=== PATIENT | female | born 1940 | race Caucasian/White ===

== ENCOUNTER → 2017-05-17 08:35 | Outpatient (CLI) | payer OTHER, SELFPAY ==
[2017-05-17 09:44] LABS: AST(SGOT) 23 U/L (15-37); Alanine Aminotransfer ALT/SGPT 24 U/L (13-56); Albumin, Serum 3.7 g/dL (3.2-5.0); Alkaline Phosphatase 78 U/L (45-117); Bilirubin, Direct 0.13 mg/dL (0.00-0.30); Cholesterol 146 mg/dL (200); Globulin 3.8 g/dL (2.2-4.2); High Density Lipoprotein 59 mg/dL; Protein, Total 7.5 g/dL (6.4-8.2); Triglycerides 121 mg/dL; Very Low Density Lipoprotein 24 mg/dL (5-40)
== END ==
PROVIDERS: Nurse Practitioner Family; Visit Provider Internal Medicine Cardiovascular Disease
DX: E78.5 Hyperlipidemia, unspecified (principal)
CPT/HCPCS: 36415; 80061; 80076

== ENCOUNTER → 2017-11-16 08:51 | Outpatient (CLI) | payer OTHER, SELFPAY ==
[2017-11-16 10:14] LABS: AST(SGOT) 26 U/L (15-37); Alanine Aminotransfer ALT/SGPT 27 U/L (13-56); Albumin, Serum 3.7 g/dL (3.2-5.0); Alkaline Phosphatase 78 U/L (45-117); Bilirubin, Direct 0.18 mg/dL (0.00-0.30); Cholesterol 140 mg/dL (200); Globulin 3.6 g/dL (2.2-4.2); High Density Lipoprotein 57 mg/dL; Protein, Total 7.3 g/dL (6.4-8.2); Triglycerides 101 mg/dL; Very Low Density Lipoprotein 20 mg/dL (5-40)
== END ==
PROVIDERS: Referring Provider Internal Medicine Cardiovascular Disease; Visit Provider Internal Medicine Cardiovascular Disease
DX: E78.5 Hyperlipidemia, unspecified (principal)
CPT/HCPCS: 36415; 80061; 80076

== ENCOUNTER → 2018-12-18 08:39 | Outpatient (CLI) | payer OTHER, SELFPAY ==
[2018-12-18 10:03] LABS: AST(SGOT) 27 U/L (15-37); Alanine Aminotransfer ALT/SGPT 28 U/L (13-56); Albumin, Serum 3.8 g/dL (3.2-5.0); Alkaline Phosphatase 74 U/L (45-117); Bilirubin, Direct 0.11 mg/dL (0.00-0.30); Cholesterol 149 mg/dL (200); Globulin 3.7 g/dL (2.2-4.2); High Density Lipoprotein 62 mg/dL; Protein, Total 7.5 g/dL (6.4-8.2); Triglycerides 101 mg/dL; Very Low Density Lipoprotein 20 mg/dL (5-40)
== END ==
PROVIDERS: Referring Provider Internal Medicine Cardiovascular Disease; Visit Provider Internal Medicine Cardiovascular Disease
DX: E78.00 Pure hypercholesterolemia, unspecified (principal)
CPT/HCPCS: 36415; 80061; 80076

== ENCOUNTER → 2019-11-05 08:38 | Outpatient (CLI) | payer OTHER, SELFPAY ==
[2018-12-28 09:21] VITALS: BMI 21.6
[2019-11-05 10:14] LABS: AST(SGOT) 28 U/L (15-37); Alanine Aminotransfer ALT/SGPT 30 U/L (13-56); Albumin, Serum 3.6 g/dL (3.2-5.0); Alkaline Phosphatase 77 U/L (45-117); Bilirubin, Direct 0.17 mg/dL (0.00-0.30); Cholesterol 137 mg/dL (200); Globulin 3.7 g/dL (2.2-4.2); High Density Lipoprotein 58 mg/dL; Protein, Total 7.3 g/dL (6.4-8.2); Triglycerides 77 mg/dL; Very Low Density Lipoprotein 15 mg/dL (5-40)
== END ==
PROVIDERS: Referring Provider Internal Medicine Cardiovascular Disease; Visit Provider Internal Medicine Cardiovascular Disease
DX: E78.00 Pure hypercholesterolemia, unspecified (principal); E78.5 Hyperlipidemia, unspecified
CPT/HCPCS: 36415; 80061; 80076

== ENCOUNTER → 2020-06-15 07:58 | Outpatient (CLI) | payer OTHER, SELFPAY ==
[2019-11-15 10:16] VITALS: BMI 21.6
[2020-06-15 09:39] LABS: AST(SGOT) 24 U/L (15-37); Alanine Aminotransfer ALT/SGPT 29 U/L (13-56); Albumin, Serum 3.9 g/dL (3.2-5.0); Alkaline Phosphatase 80 U/L (45-117); Bilirubin, Direct 0.14 mg/dL (0.00-0.30); Cholesterol 138 mg/dL (200); Globulin 3.6 g/dL (2.2-4.2); High Density Lipoprotein 65 mg/dL; Protein, Total 7.5 g/dL (6.4-8.2); Triglycerides 85 mg/dL; Very Low Density Lipoprotein 17 mg/dL (5-40)
== END ==
PROVIDERS: Referring Provider Nurse Practitioner Family; Visit Provider Nurse Practitioner Family
DX: E78.00 Pure hypercholesterolemia, unspecified (principal)
CPT/HCPCS: 36415; 80061; 80076

== ENCOUNTER 2020-11-27 08:22 | Emergency (ER) | payer OTHER, SELFPAY ==
[2020-11-27 08:23] VITALS: BP 177/70; PULSE 75; RESP 16; TEMP 36.4; O2SAT 97; BMI 21.4
--- NOTE | 2020-11-27 08:39 | EDS_ITS ---
HPI History of Present Illness Chief Complaint: Upper Extremity Injury Informant: patient Occured/Mechanism Mechanism/Context: Yes fall Comment: tripped while walking on sidewalk Onset/Context/Timing Onset: Yesterday Context: Sudden Onset Timing: Continuous Quality of Pain: Aching Location: left wrist Current Severity: Moderate Maximum Severity: Severe Worsened by: moving Relieved by: remaining still Associated Symptoms Associated Symptoms: Positive for Loss of Funtion; Negative for Parasthesia and Weakness Narrative Narrative: Accidentally fell onto outstretched hand after tripping on pavement. No other injuries except for left wrist. No recent illness, not on anticoagulation. [id number]. [facility] Medical History (Updated 11/27/20 @ 10:[address] Timoteo Shankar MD) Atherosclerotic heart disease of [place] coronary artery without angina pectoris Essential hypertension Family history of hypertension Hiatal hernia Premature ventricular contraction Pure hypercholesterolemia Home Medications Bifidobacterium infantis 4 mg capsule 4 mg PO QDAY 04/17/17 [History Last Taken Unknown] aspirin 81 mg tablet,delayed release 81 mg PO QDAY tab 04/17/17 [History Last Taken Unknown] famotidine 40 mg tablet 40 mg PO QDAY PRN tab 04/17/17 [History Last Taken Unknown] ibuprofen 200 mg tablet PO Q8H PRN tab 04/17/17 [History Last Taken Unknown] cholecalciferol (vitamin D3) 50 mcg (2,000 unit) capsule 2,000 unit PO DAILY 11/30/17 [History Last Taken Unknown] nitroglycerin 0.4 mg sublingual tablet 0.4 mg SUBLINGUAL Q5-15M PRN #25 tab 12/31/18 [Rx Last Taken Unknown] potassium chloride 10 mEq tablet,extended release(part/cryst) 20 meq PO BID #360 tab 02/10/20 [Rx Last Taken Unknown] rosuvastatin 20 mg tablet 20 mg PO DAILY #90 tab 02/10/20 [Rx Last Taken Unknown] atenolol 50 mg tablet 50 mg PO BID #180 tab 03/19/20 [Rx Last Taken Unknown] hydrochlorothiazide 25 mg tablet 25 mg PO DAILY #90 tab 06/10/20 [Rx Last Taken Unknown] levothyroxine 50 mcg capsule 50 mcg PO QDAY #90 cap 06/10/20 [Rx Last Taken Unknown] losartan 50 mg tablet 50 mg PO DAILY #90 tab 06/10/20 [Rx Last Taken Unknown] Allergy/AdvReac Type Severity Reaction Status Date / Time No Known Allergies Allergy Verified 11/27/20 08:24 Family History Father CHF (congestive heart failure) Mother CAD (coronary artery disease) Brother CAD (coronary artery disease) Hypertension Surgical History History of cholecystectomy History of tonsillectomy History of total hysterectomy Postsurgical percutaneous transluminal coronary angioplasty (PTCA) status (~10/31/04) Social History Smoking Status: Never smoker alcohol intake: never substance use type: does not use ROS ROS ED Constitutional Constitutional ED: Denies chills or fever(s) Musculoskeletal Musculoskeletal: Reports extremity pain; Denies neck pain Integumentary Denies Abrasions, rash or wounds Neurologic Neurologic: Denies paresthesias or weakness EXAM Physical Exam Const Vital Signs: 11/27/20 08:23 Temperature 97.6 F L Temperature Source Temporal Pulse Rate 75 Respiratory Rate 16 Blood Pressure 177/70 H Blood Pressure Mean 105 Pulse Ox 97 Oxygen Delivery Method Room Air Positive well nourished and well developed General Appearance ED: well developed and NAD Neck full ROM and supple Back/Spine normal ROM and normal to inspection Extremity Extremity Narrative: Limited range of motion left wrist, swelling, tenderness distal ulna more so than the distal radius, but very tender in the area of the navicular with increased pain with axial loading of the thumb. Other fingers move without any difficulty, neurovascularly intact distally. Neuro oriented x3, no focal motor deficits and no sensory deficits noted Sensorium / Orientation: alert Psych mental status grossly normal and thought process normal Skin no wounds Rashes: no rashes MDM MDM MDM Narrative Medical decision making narrative: X-ray series of the left wrist does not show anything obvious in acute except for chronic arthritic changes. Clinically I am concerned about her navicular where she is the most tender and she had the appropriate mechanism for a scaphoid fracture. Therefore I placed her in a thumb spica splint and will have her follow-up with orthopedics. She is comfortable with that plan. Procedures Upper Extremity Splints Upper Extremity Splint: Orthoglass and Thumb Spica (Neurovascularly intact distally after placement. Tolerated well no complications.) Splint Fabrication: Fabricated Location: Left Discharge Plan Triage Chief Complaint: Upper Extremity Injury ED Provider: Timoteo Shankar Dx/Rx/DC Orders Clinical Impression: Left wrist injury Instructions: Splint Care, ED Possible Wrist Fracture Prescriptions: No Action ibuprofen [Advil] 200 mg tablet PO Q8H PRNRF: 0 Bifidobacterium infantis [Align] 4 mg capsule 4 mg PO QDAY RF: 0 famotidine [Pepcid] 40 mg tablet 40 mg PO QDAY PRNRF: 0 aspirin 81 mg tablet,delayed release (DR/EC) 81 mg PO QDAY RF: 0 cholecalciferol (vitamin D3) 2,000 unit capsule 2,000 unit PO DAILY RF: 0 nitroglycerin 0.4 mg tablet, sublingual 0.4 mg SUBLINGUAL Q5-15M PRN (Reason: chest pain) Qty: 25 RF: 3 potassium chloride 10 mEq tablet,ER particles/crystals 20 meq PO BID Qty: 360 RF: 3 rosuvastatin 20 mg tablet 20 mg PO DAILY Qty: 90 RF: 3 atenolol 50 mg tablet 50 mg PO BID Qty: 180 RF: 3 levothyroxine 50 mcg capsule 50 mcg capsule 50 mcg PO QDAY Qty: 90 RF: 3 hydrochlorothiazide 25 mg tablet 25 mg PO DAILY Qty: 90 RF: 3 losartan 50 mg tablet 50 mg PO DAILY Qty: 90 RF: 3 Primary Care Provider: Care Physician,No Primary Referrals: Александр Vinson DO [STAFF PHYSICIAN] - 3-5 Days Care Physician,No Primary [Primary Care Provider] - Disposition Disposition: Home, Self Care
--- NOTE | 2020-11-27 08:55 | RAD_ITS ---
STUDY: X-RAY - LEFT WRIST REASON FOR EXAM: Female, 80 years old. injury -- add navicular view please TECHNIQUE: 4 view(s) of the wrist were obtained. COMPARISON: None. FINDINGS: No acute fracture line. No acute dislocation. No acute cortical destruction. Small cysts/erosions at the carpal bones. Osteopenia. Multi regional degenerative changes predominating at the proximal carpal row and first carpometacarpal joint. Mild soft tissue swelling. Chondrocalcinosis. RAD/Wrist min 3 Views IMPRESSION: Left wrist acutely intact Advanced degenerative changes, as above Soft tissue swelling with chondrocalcinosis Electronically Signed: Glenn Dugan DO at 9:10 EDT Tel , Service support ,
[2020-11-27] MEDS: traMADol 50 MG Tablet PO (10:20)
== END 2020-11-27 10:22 | disposition home or self-care (01) ==
PROVIDERS: Emergency Provider Emergency Medicine
DX: S69.92XA Unspecified injury of left wrist, hand and finger(s), initial encounter (principal); W01.0XXA Fall on same level from slipping, tripping and stumbling without subsequent striking against object, initial encounter; Y93.01 Activity, walking, marching and hiking; Y92.480 Sidewalk as the place of occurrence of the external cause; Y99.8 Other external cause status; I25.10 Atherosclerotic heart disease of native coronary artery without angina pectoris; I10 Essential (primary) hypertension; E78.00 Pure hypercholesterolemia, unspecified; Z79.82 Long term (current) use of aspirin; Z79.899 Other long term (current) drug therapy
CPT/HCPCS: 29125; 73110; 99283

== ENCOUNTER → 2020-12-01 09:02 | Outpatient (CLI) | payer OTHER, SELFPAY ==
[2020-12-01 10:24] LABS: AST(SGOT) 29 U/L (15-37); Alanine Aminotransfer ALT/SGPT 55 U/L (13-56); Albumin, Serum 3.4 g/dL (3.2-5.0); Alkaline Phosphatase 88 U/L (45-117); Bilirubin, Direct 0.14 mg/dL (0.00-0.30); Cholesterol 132 mg/dL (200); Globulin 4.1 g/dL (2.2-4.2); High Density Lipoprotein 49 mg/dL; Protein, Total 7.5 g/dL (6.4-8.2); Triglycerides 108 mg/dL; Very Low Density Lipoprotein 22 mg/dL (5-40)
== END ==
PROVIDERS: Referring Provider Nurse Practitioner Family; Visit Provider Nurse Practitioner Family
DX: E78.00 Pure hypercholesterolemia, unspecified (principal)
CPT/HCPCS: 36415; 80061; 80076

== ENCOUNTER → 2021-05-31 | Outpatient (CLI) | payer OTHER, SELFPAY ==
[2021-05-31 11:03] LABS: AST(SGOT) 24 U/L (15-37); Alanine Aminotransfer ALT/SGPT 28 U/L (13-56); Albumin, Serum 3.5 g/dL (3.2-5.0); Alkaline Phosphatase 73 U/L (45-117); Bilirubin, Direct 0.14 mg/dL (0.00-0.30); Cholesterol 148 mg/dL (200); Globulin 3.5 g/dL (2.2-4.2); High Density Lipoprotein 57 mg/dL; Triglycerides 103 mg/dL; Very Low Density Lipoprotein 21 mg/dL (5-40)
== END | disposition home or self-care (01) ==
LOC: LAB 08:26
PROVIDERS: Referring Provider Nurse Practitioner Family; Visit Provider Nurse Practitioner Family
DX: E78.00 Pure hypercholesterolemia, unspecified (principal)
CPT/HCPCS: 36415; 80061; 80076

== ENCOUNTER → 2021-11-23 | Outpatient (CLI) | payer OTHER, SELFPAY ==
[2021-11-23 10:49] LABS: AST(SGOT) 21 U/L (15-37); Alanine Aminotransfer ALT/SGPT 26 U/L (13-56); Albumin, Serum 3.5 g/dL (3.2-5.0); Alkaline Phosphatase 77 U/L (45-117); Bilirubin, Direct 0.15 mg/dL (0.00-0.30); Cholesterol 140 mg/dL (200); Globulin 3.7 g/dL (2.2-4.2); High Density Lipoprotein 61 mg/dL; Protein, Total 7.2 g/dL (6.4-8.2); Triglycerides 88 mg/dL; Very Low Density Lipoprotein 18 mg/dL (5-40)
== END | disposition home or self-care (01) ==
LOC: LAB 09:35
PROVIDERS: Visit Provider Internal Medicine Cardiovascular Disease
DX: E78.00 Pure hypercholesterolemia, unspecified (principal)
CPT/HCPCS: 36415; 80061; 80076

== ENCOUNTER → 2022-01-06 | Outpatient (CLI) | payer OTHER, SELFPAY ==
--- NOTE | 2022-01-06 09:49 | STRESSREP_ITS ---
Stress Test Report Date: 01-06-2022 Procedure: Exercise tolerance test/imaging study Indications: Shortness of breath/dyspnea on exertion; CAD; status post PTCA/no stent Consent: Per the patient Procedure: The patient exercised on a Herbert protocol for 4 minutes and 31 seconds completing Stage I and 1 minute and 31 seconds of Stage II achieving a peak heart rate of 127 bpm (90% predicted maximal heart rate) with resting blood pressure of 136/78 mmHg and a peak blood pressure 168/70 mmHg and a peak MET capacity of 7 METs. The baseline ECG demonstrated normal sinus rhythm. The peak exercise ECG demonstrated somatic/motion artifact with no obvious ECG changes. There was a rare PVC during recovery. The functional capacity was considered fair. There was no complaint of chest discomfort during exercise or recovery. The examination was discontinued secondary to dyspnea. Impression: 1. Technically adequate (percent predicted maximal heart rate greater than 85%) exercise tolerance test 2. Peak exercise ECG with somatic/motion artifact with no obvious ECG changes 3. There was a rare PVC during recovery 4. Nuclear images pending Myocardial perfusion imaging study: Technique: The patient was injected with 11.7 mCi of technetium 99m Cardiolite and subsequently rest SPECT Cardiolite nuclear imaging was obtained in the horizontal long, vertical long, and short axis views. The patient exercised on a Herbert protocol for 4 minutes and 31 seconds completing Stage I and 1 minute and 31 seconds of Stage II achieving a peak heart rate of 127 bpm (90% predicted maximal heart rate) with resting blood pressure of 136/78 mmHg and a peak blood pressure 168/70 mmHg and a peak MET capacity of 7 METs. The patient was injected with 32.8 mCi of technetium 99m Cardiolite and subsequently stress SPECT Cardiolite nuclear imaging was obtained in the horizontal long, vertical long, and short axis views. A gated Cardiolite study at peak stress was obtained. Interpretation: Rest and stress SPECT Cardiolite nuclear imaging status post realignment, normalization, and attenuation correction, demonstrates the appearance of relative uniform tracer uptake and myocardial perfusion appearing within normal limits. There is end systolic thickening and brightening. The gated Cardiolite study demonstrates myocardial thickening and inward wall motion. The reported LVEF is 83%. Impression: 1. Rest and stress SPECT Cardiolite nuclear imaging demonstrate relative uniform tracer uptake and myocardial perfusion appearing within normal limits. 2. The gated Cardiolite study reports an LVEF of 83%. This note was generated with [employer]ation software. It may contain incorrect words, spelling, and punctuation that were not noted in checking the note before signing.
== END | disposition home or self-care (01) ==
PROVIDERS: Visit Provider Internal Medicine Cardiovascular Disease
DX: I49.3 Ventricular premature depolarization (principal); E78.00 Pure hypercholesterolemia, unspecified; I10 Essential (primary) hypertension; I25.10 Atherosclerotic heart disease of native coronary artery without angina pectoris; Z98.61 Coronary angioplasty status
CPT/HCPCS: 78452; 93017; A9500; A4216

== ENCOUNTER → 2024-05-08 | Outpatient (CLI) | payer OTHER, SELFPAY ==
[2024-05-08 09:32] LABS: Absolute Lymphocyte Count 3.26 X10^3/uL (0.83-4.51); Basophil# 0.07 X10^3/uL; Basophil% 0.9 % (0-1); Eosinophil# 0.19 X10^3/uL; Eosinophils% 2.3 % (0-5); Hematocrit 34.2 % (37-47); Hemoglobin 11.6 g/dL (12.0-15.0); Lymphocyte # 3.26 X10^3/ul (0.83-4.51); Mean Corp Hgb Conc 33.9 g/dL (32-36); Mean Corpuscular Volume 94.2 fL (81-99); Mean Platelet Vol. 10.6 fl (6.2-12.0); Monocyte# 0.63 X10^3/uL; Monocyte% 7.7 % (0-10); NRBC Flagged by Analyzer 0 % (0-5); Neutrophil # 3.98 X10^3/uL (2.7-7.7); Neutrophil % 48.7 % (47-70); Platelet Count 207 K/mm3 (150-450); RBC Distribution Width CV 12.1 % (11.6-14.6); RBC Distribution Width SD 42.3 fl (35.1-43.9); Red Blood Count 3.63 M/mm3 (4.2-5.4); White Blood Count 8.2 K/mm3 (4.4-11.0)
[2024-05-08 10:15] LABS: ALB/GLOB Ratio 1.4 RATIO (0.9-2.4); AST(SGOT) 27 U/L (<=31); Alanine Aminotransfer ALT/SGPT 20 U/L (<=34); Albumin, Serum 4.2 g/dL (3.4-4.8); Alkaline Phosphatase 74 U/L (35-104); Anion Gap 12 (5-15); BUN 30 mg/dL (4-19); Calcium,Total 9.9 mg/dL (7.6-11.0); Carbon Dioxide 24.3 mmol/L (21.0-32.0); Chloride 103 mmol/L (98-108); Cholesterol 153 mg/dL (<=200); Creatinine, Serum 1.79 mg/dL (0.70-1.20); EST Glomerular Filtration Rate 28 (>60); Glucose 104 mg/dL (70-99); High Density Lipoprotein 65 mg/dL; Low Density Lipoprotein Calc. 66 mg/dL; Potassium 3.8 mmol/L (3.3-5.1); Protein, Total 7.2 g/dL (5.9-8.4); Sodium Level 139 mmol/L (133-145); Triglycerides 114 mg/dL; Very Low Density Lipoprotein 23 mg/dL (5-40); Vitamin B12 294 pg/mL (180-914); Vitamin D,25 Hydroxy 70.4 ng/mL (30-100); cholesterol:hdl ratio screen 2.37
== END | disposition home or self-care (01) ==
PROVIDERS: Referring Provider Internal Medicine; Visit Provider Internal Medicine
DX: M85.80 Other specified disorders of bone density and structure, unspecified site (principal); I10 Essential (primary) hypertension; I25.10 Atherosclerotic heart disease of native coronary artery without angina pectoris; E03.9 Hypothyroidism, unspecified
CPT/HCPCS: 36415; 80053; 80061; 82306; 82607; 84443; 85025

== ENCOUNTER → 2024-05-21 | Outpatient (CLI) | payer OTHER, SELFPAY ==
--- NOTE | 2024-05-21 08:20 | BD_ITS ---
PROCEDURE: DEXA BONE DENSITY STUDY 05/21/2024 REASON FOR EXAM: FOLLOW UP F, age 83 y/o . Postmenopausal. TECHNIQUE: DXA scan of the lumbar spine and both hips, using make and model. REFERENCE LINKS: ISCD Adult Positions COMPARISON: Comparison is made with prior study dated September 30, 2014. FINDINGS: BMD and T-SCORES Lumbar spine: 0.959 g/cm2, T-Score -0.8 2.0 change from prior: Loss of 12.9% Left femoral neck: 0.574 g/cm2, T-Score -2.5 Femoral neck comparison data not recommended for monitoring change. Left total hip: 0.733 g/cm2, T-Score -1.7 Change from prior: Loss of 6% Right femoral neck: 0.604 g/cm2, T-Score -2.2 Femoral neck comparison data not recommended for monitoring change. Right total hip: 0.763 g/cm2, T-Score -1.5 Change from prior: Loss of 5.7% Fracture Risk Calculation: FRAX (10-year Fracture Risk) Score: FRAX scores should never be reported in a patient with osteoporosis on DEXA or for any patient that is on bone medication. The patient doesmeet the pharmacological treatment recommendations for prevention of osteoporosis BD/Dexa Bone Density Study IMPRESSION: OSTEOPOROSIS. Recommend follow-up as clinically warranted. Reading Location: [place] [id number]
== END | disposition home or self-care (01) ==
LOC: OPBD 08:14
PROVIDERS: PCP Internal Medicine; Referring Provider Internal Medicine; Visit Provider Internal Medicine
DX: Z78.0 Asymptomatic menopausal state (principal)
CPT/HCPCS: 77080

== ENCOUNTER → 2024-11-07 | Outpatient (CLI) | payer OTHER, SELFPAY ==
[2024-11-07 10:00] LABS: Hematocrit 33.1 % (37-47); Hemoglobin 11.4 g/dL (12.0-15.0); Immature Granulocytes Count 0.020 X10^3/uL (0.0-0.0); Mean Corp Hgb Conc 34.4 g/dL (32-36); Mean Corpuscular Volume 94.8 fL (81-99); Mean Platelet Vol. 10.3 fl (6.2-12.0); NRBC Flagged by Analyzer 0 % (0-5); Platelet Count 216 K/mm3 (150-450); RBC Distribution Width CV 12.4 % (11.6-14.6); RBC Distribution Width SD 42.8 fl (35.1-43.9); Red Blood Count 3.49 M/mm3 (4.2-5.4); White Blood Count 7.5 K/mm3 (4.4-11.0)
--- NOTE | 2024-11-07 10:05 | RAD_ITS ---
PROCEDURE: LUMBAR SPINE 2 OR 3 VIEWS 11/07/2024 REASON FOR EXAM: CHRONIC PAIN, WORSENING TECHNIQUE: Procedure Code: RADSP Modality: DX Procedure: LUMBAR SPINE 2 OR 3 VIEWS COMPARISON: None. FINDINGS: There is no evidence of fracture. There is multilevel degenerative disc disease of the lower thoracic and lumbar spine most severe at the T12-L1 through L2-3 levels with narrowing of the disc spaces and marginal osteophytes. There is multilevel facet arthropathy with degenerative grade 1 retrolisthesis of L2 on L3 and degenerative grade 1 anterolisthesis of L4 on L5. There is moderate levoscoliosis of the spine centered at the L1 level. There is calcific vascular disease of the abdominal aorta. There is an infrarenal abdominal aortic aneurysm measuring 3.5 cm in AP dimension. RAD/Lumbar Spine 2 or 3 Views IMPRESSION: 1. Multilevel degenerative disc disease with moderate levoscoliosis, as descri bed. 2. Multilevel facet arthropathy with spondylolisthesis L2 on L3 and L4 on L5 a s described. 3. Abdominal aortic aneurysm. Reading Location: [id number]
[2024-11-07 10:42] LABS: AST(SGOT) 29 U/L (<=31); Alanine Aminotransfer ALT/SGPT 20 U/L (<=34); Albumin, Serum 4.3 g/dL (3.4-4.8); Alkaline Phosphatase 82 U/L (35-104); Anion Gap 11 (5-15); BUN 24 mg/dL (4-19); BUN/Creat Ratio 13.3 RATIO (10-20); Calcium,Total 10.0 mg/dL (7.6-11.0); Carbon Dioxide 25.8 mmol/L (21.0-32.0); Chloride 102 mmol/L (98-108); Globulin 2.9 g/dL (2.2-4.2); Glucose 107 mg/dL (70-99); Potassium 4.4 mmol/L (3.3-5.1)
[2024-11-07 17:57] LABS: Xtra Tube EP Lab EXTRA TUBE
== END | disposition home or self-care (01) ==
PROVIDERS: PCP Internal Medicine; Referring Provider Internal Medicine; Visit Provider Internal Medicine
DX: M54.50 Low back pain, unspecified (principal); G89.29 Other chronic pain; I10 Essential (primary) hypertension
CPT/HCPCS: 36415; 72100; 80053; 85025

== ENCOUNTER → 2024-12-03 | Outpatient (CLI) | payer OTHER, SELFPAY ==
--- NOTE | 2024-12-03 08:49 | AAAS_ITS ---
Reason For Study Reason For Study: AAA SCreening Aorta Measurements Aorta Doppler Measurements Proximal aorta measures1.55 x 1.60cm. in cross-sectional Peak systolic flow velocities within the proximal aorta axis. measure 72.3 cm/sec. Proximal aorta measures1.55cm. in longitudinal axis. Peak systolic flow velocities within the mid aorta measure Mid aorta measures1.48 x1.44cm. in cross-sectional axis. 72.3 cm/sec. Mid aorta measures1.39cm. in longitudinal axis. Peak systolic flow velocities within the distal aorta Distal aorta measures3.06 x 2.92cm. in cross-sectional axis.measure 67.6 cm/sec. Distal aorta measures3.09cm. in longitudinal axis. Left Iliac Artery Left iliac artery measures 0.87 x 0.77 cm. in the cross-sectional axis. Left iliac artery measures 0.94 cm. in the longitudinal axis. Peak systolic velocity in the left iliac artery measures 98.2 cm/sec. Right Iliac Artery Right iliac artery measures 0.75 x0.87 cm. in the cross-sectional axis. Right iliac artery measures 0.76 cm. in the longitudinal axis. Peak systolic velocity in the right iliac artery measures 135.6 cm/sec. Procedure Aorta IVC Iliac vasculature or bypass grafts [id number]. The exam was diagnostic. Exam performed in department. VL/AAA Screening Interpretation Summary Aorta patent, 3.09 cm aneurysm present. Bilateral iliac arteries patent, normal caliber. Ordering Physician: Sherley Malik Referring Physician: Sherley Malik Performed By: Duncan Franklin RVT
--- OUTSIDE RECORDS SUMMARY | 2024-12-03 09:20 | XMS RPT_ITS | CCD ---
Author Organization [facility] Care Team Providers Care Nutrition And Dietetics Instructor Name Role Phone Vero Lowricia Y Unavailable DeFinis, Harumi Y Unavailable Unavailable Vero Lowricia Y Unavailable Roof EXTRUSION DIE REPAIRER, Nik Alvarez Unavailable YASH JAIN Unavailable Unavailable YASH JAIN Unavailable Unavailable YASH JAIN Unavailable Unavailable NO REFERRING DR Unavailable Unavailable DevanteGilia Y Unavailable Unavailable Primary Care Provider Unavailabl e Care Physician, No Primary Primary Care Provider Unavailable Care Physician, No Primary Referring Provider Un available Zachary PATEL, Dr. Irene Attending Provider [phone] King PATEL, Dr. Lepe Attending Provider King PATEL, Dr. Lepe Referring Provider Dr. Sherley Malik MD Primary Care Provider [phone] Care Physician, No Primary Referring Provider Un available King PATEL, Dr. Lepe Primary Care Physician King PATEL, Dr. Lepe Attending Physician Sherley Malik Attending Unavailable Sherley Malik Referring Unavailable Sherley Malik Primary Care Unavailable Sherley Malik Attending Unavailable Sherley Malik Referring Unavailable Care Physician, No Primary Primary Care Unava ilable Savage, Sherley Referring Unavailable Sherley Malik Primary Care Unavailable Sherley Malik Attending Unavailable Sherley Malik Attending Unavailable Care Physician, No Primary Primary Care Unava ilable Care Physician, No Primary Referring Unava ilable Care Physician, No Primary Referring Unava ilable Teto Sharma Attending Unavailable Care Physician, No Primary Primary Care Unava ilable Jalil Douglas Attending Unavailable King, Sherley Primary Care Unavailable Care Physician, No Primary Referring Unava ilable Savage, Sherley Attending Unavailable King, Sherley Primary Care Unavailable Care Physician, No Primary Referring Unava ilable Savage, Sherley Referring Unavailable Savage, Sherley Primary Care Unavailable Savage, Sherley Attending Unavailable Le Douglasyler Attending Unavailable Kikiiter Jalil Referring Unavailable Savage, Sherley Primary Care Unavailable Allergies Allergy Classification Reported Allergen(s) Allergy Type Date of Onset Reaction(s) Facility (4 sources) NKDA drug allergy 04-29-2011 [employer] Work Phone: (4 sources) NKA drug allergy 04-29-2011 [employer] Phone: Medications Current Medications Medication Drug Class(es) Dates Sig (Normalized) Sig (Original) acetaminophen 325 mg oral tablet (5 sources) Start: 12-18-2020 take 1 tablet by mouth once as needed Acetaminophen 325 mg tablet Active 325 mg PO ONCE as needed December 18, 2020 1:00am Complies with drug therapy aspirin 81 mg delayed release oral tablet (16 sources) Nonsteroidal Anti-inflammatory Drug Start: 04-17-2017 take 1 tablet by mouth once daily Aspirin 81 mg tablet,delayed release (DR/EC) Active 81 mg PO daily 0 April 17, 2017 12:00am Complies with drug therapy Start: 06-02-2010 take 1 tablet by ronald th once daily ASPIRIN 81 MG TABS One tablet by mouth daily ASPIRIN [id number] Odalys Hanna Start: 06-02-2010 take 1 tablet by ronald th once daily ASPIRIN 81 MG TABS One tablet by mouth daily ASPIRIN [id number] Odalys Hanna Start: 06-02-2010 ASPIRIN EC 81 MG [facility] ASPIRIN [id number] Martine Gibbs LPN Comment on above: Take 81 mg by mouth. bifidobacterium infantis 4 mg oral capsule (11 sources) Start: 09-21-19 take 1 capsule by mouth once daily Bifidobacterium Infantis (Align (B.Infantis)) 4 mg capsule Active 4 mg PO daily April 17, 2017 12:00am Complies with drug therapy Comment on above: Take by mouth once d aily. cholecalciferol 0.05 mg oral capsule (15 sources) Vitamin D Start: 12-01-19 take 1 capsule by mouth once daily Cholecalciferol (Vitamin D3) 2,000 unit capsule Active 2000 U PO DAILY November 30, 2017 12:00am Complies with drug therapy Start: 04-29-2011 End: 07-31-2013 take 1 tablet by mouth once daily VITAMIN D 2000 UNIT TABS One tablet by mouth daily CHOLECALCIFEROL [id number] Bobby Ribera MD 1 ml denosumab 60 mg/ml prefilled syringe (2 sources) RANK Ligand Inhibitor Start: 05-23-2024 Denosumab (Prolia) 60 mg/mL syringe Active 60 mg SC every 6 months May 23, 2024 12:00am Complies with drug therapy hydroCHLOROthiazide 25 mg oral tablet (20 sources) Thiazide Diuretic Start: 08-25-2017 End: 06-06-2024 take 1 tablet by mouth once daily Hydrochlorothiazide 25 mg tablet Active 25 mg PO DAILY 90 June 06, 2024 12:39pm Complies with drug therapy losartan potassium 100 mg oral tablet (20 sources) Angiotensin 2 Receptor Franky Start: 02-22-2024 End: 04-10-2024 take 1 tablet by mouth once daily Losartan 100 mg tablet Active 100 mg PO DAILY 90 3 April 10, 2024 2:03pm Complies with drug therapy Start: 08-25-2017 End: 02-22-2024 take 1 tablet by mouth once daily Losartan 50 mg tablet Discontinued 50 mg PO DAILY 90 February 02, 2023 4:08pm February 22, 2024 4:44pm mecobalamin 1 mg chewable tablet (1 source) Start: 11-05-2024 Mecobalamin (V itamin B12) (B12 Active) 1,000 mcg tablet,chewable Active 1000 ug PO daily November 05, 2024 12:00am Complies with drug therapy levothyroxine sodium 0.05 mg oral tablet (20 sources) l-Thyrox ine Start: 11-05-2024 take 0.5 tablet by mouth once daily Start: 04-17-2017 End: 06-10-2022 take 1 capsule by mouth once daily Levothyroxine 50 mcg capsule Discontinued 50 ug PO daily 90 3 July 06, 2021 4:48pm July 16, 2021 8:44am Start: 04-29-2011 End: 11-05-2024 Levothyroxine (Synthroid) 50 mcg tablet Discontinued 0 .ROUTE .COMPLEX 90 September 09, 2024 8:05am November 05, 2024 11:05am TAKE 1 TABLET DAILY Start: 04-29-2011 take 1 tablet by ronald th once daily, then take 0.5 tablet by mouth SYNTHROID 50 MCG TABS One tablet by mouth daily except 1/2 tablet on Monday LEVOTHYROXINE SODIUM [id number] Marely Marcos PA-C Start: 06-02-2010 take 1 tablet by ronald th once daily, then take 0.5 tablet by mouth once SYNTHROID 75 MCG TABS One tablet by mouth daily, except 1/2 tablet every Monday LEVOTHYROXINE SODIUM [id number] Odalys Hanna Start: 06-02-2010 take 1 tablet by ronald th once daily, then take 0.5 tablet by mouth once SYNTHROID 75 MCG TABS One tablet by mouth daily, except 1/2 tablet every Monday LEVOTHYROXINE SODIUM [id number] Odalys Hanna Comment on above: Take 50 mcg by mouth once daily. Completed/Discontinued Medications Medication Drug Class(es) Dates Sig (Normalized) Sig (Original) atenolol 50 mg oral tablet (20 sources) beta-Adrenergic Franky Start: 02-22-2024 End: 02-28-2024 take 1 tablet by mouth once Atenolol 50 mg tablet Discontinued 50 mg PO ONCE 180 3 February 23, 2024 5:41pm February 28, 2024 3:59pm Start: 06-02-2010 End: 02-22-2024 take 1 tablet by mouth twice daily Atenolol 50 mg tablet Discontinued 50 mg PO TWICE A DAY 180 3 February 13, 2024 9:51am February 22, 2024 4:44pm Comment on above: Take 50 mg by mouth twice daily. calcium carbonate / vitamin D (10 sources) Start: 06-02-2010 take 1 tablet by mouth once daily CALCIUM CARBONATE-VITAMIN D 600-125 MG-UNIT TABS One tablet by mouth daily CALCIUM CARBONATE-VITAMIN D [id number] Odalys Hanna Start: 06-02-2010 End: 04-29-2011 take 1 tablet by mouth once daily CALCIUM CARBONATE-VITAMIN D 600-125 MG-UNIT TABS One tablet by mouth daily CALCIUM CARBONATE-VITAMIN D [id number] Bobby Ribera MD esomeprazole 40 mg delayed release oral capsule (11 sources) Proton Pump Inhibitor Start: 06-02-2010 End: 12-28-2018 take 1 capsule by mouth once daily as needed Esomeprazole Magnesium (Nexium) 40 mg capsule,delayed release(DR/EC) Discontinued 40 mg PO daily as needed May 29, 2017 12:00am December 28, 2018 10:16am Start: 06-02-2010 NEXIUM 40 MG C PDR as needed ESOMEPRAZOLE MAGNESIUM [id number] Odalys Hanna Comment on above: Take 40 mg by mouth as needed. famotidine 40 mg oral tablet (17 sources) Histamine-2 Receptor Antagonist Start: 015 End: 025 take 1 tablet by mouth once daily as needed Famotidine (Pepcid) 40 mg tablet Discontinued 40 mg PO daily as needed April 17, 2017 12:00am February 22, 2024 4:09pm Comment on above: Take 1 tablet by ronald th daily at bedtime. Take 1 tablet by ronald th once daily. hydroCHLOROthiazide 25 mg / valsartan 160 mg oral tablet (20 sources) Thiazide Diuretic, Angiotensin 2 Receptor Franky Start: 018 End: 018 Valsartan-Hydrochlo rothiazide (Diovan Hct) 160-25 mg tablet Discontinued 1 {tbl} PO daily 90 March 07, 2017 1:00am August 25, 2017 10:45am Start: 09-21-2015 take 1 tablet by ronald th once daily DIOVAN HCT 160-25 MG TABS One tablet by mouth daily VALSARTAN-HYDROCHLOROTHIAZIDE [id number] Bobby Ribera MD Start: 06-02-2010 End: 09-21-2015 take 1 tablet by mouth once daily DIOVAN HCT 160-25 MG TABS One tablet by mouth daily VALSARTAN-HYDROCHLOROTHIAZIDE [id number] Bobby Ribera MD Start: 06-02-2010 take 1 tablet by ronald th once daily DIOVAN HCT 160-25 MG TABS One tablet by mouth daily VALSARTAN-HYDROCHLOROTHIAZIDE [id number] Odalys Hanna Start: 06-02-2010 End: 09-21-2015 take 1 tablet by mouth once daily DIOVAN HCT 160-25 MG TABS One tablet by mouth daily VALSARTAN-HYDROCHLOROTHIAZIDE [id number] Bobby Ribera MD Comment on above: Take 1 tablet by ronald th once daily. ibuprofen 200 mg oral tablet (11 sources) Nonsteroidal Anti-inflammatory Drug Start: 04-17-2017 End: 12-18-2020 Ibuprofen (Advil) 200 mg tablet Discontinued PO Q8H as needed 0 April 17, 2017 12:00am December 18, 2020 11:02am Start: 09-21-2015 ADVIL 200 MG T ABS One tablet by mouth Q6-8 H as needed IBUPROFEN [id number] Bobby Ribera MD ibuprofen (MOTRI N) 200 mg tablet Take 200 mg by mouth as needed. 0 Active Comment on above: Take 200 mg by mouth as needed. Lactobacillus Combination No.8 (Adult Probiotic) 3 billion cell capsule (5 sources) Start: 8 End: 8 take 3 capsules by mouth once daily Lactobacillus Combination No.8 (Adult Probiotic) 3 billion cell capsule Discontinued 3000 MMU CELLS PO daily April 17, 2017 10:26am November 30, 2017 9:57am Start: 04-17-2017 End: 11-30-2017 take 3 capsules by mouth once daily Lactobacillus Combination No.8 (Adult Probiotic) 3 billion cell capsule Discontinued 3000 NMA PO daily April 17, 2017 12:00am November 30, 2017 9:57am Start: 04-17-2017 End: 11-30-2017 take 3 capsules by mouth once daily Lactobacillus Combination No.8 (Adult Probiotic) 3 billion cell capsule Discontinued 3000 MMU CELLS PO daily April 17, 2017 12:00am November 30, 2017 9:57am MULTIPLE VITAMINS-MINERALS (8 sources) Start: 06-02-2010 take 1 tablet by mouth once daily CENTRUM SILVER TABS One tablet by mouth daily MULTIPLE VITAMINS-MINERALS [id number] Odalys Hanna Start: 06-02-2010 End: 07-31-2013 take 1 tablet by mouth once daily CENTRUM SILVER TABS One tablet by mouth daily MULTIPLE VITAMINS-MINERALS [id number] Bobby Ribera MD MULTIPLE VITAMINS-MINERALS (2 sources) Start: 06-02-2010 take 1 tablet by mouth once daily CENTRUM SILVER TABS One tablet by mouth daily MULTIPLE VITAMINS-MINERALS [id number] Odalys Hanna Start: 06-02-2010 End: 07-31-2013 take 1 tablet by mouth once daily CENTRUM SILVER TABS One tablet by mouth daily MULTIPLE VITAMINS-MINERALS [id number] Bobby Ribera MD nitroglycerin 0.4 mg sublingual tablet (20 sources) Nitrate Vasodilator Start: 12-31-2018 End: 02-20-2023 Nitroglycerin 0.4 mg tablet, sublingual Discontinued 0.4 mg SL every 5 to 15 minutes as needed for chest pain 30 04December 28, 2020 2:51pm February 20, 2023 2:29pm do not exceed 3 doses per episode; seek medical attention if persists after 3 doses; Start: 12-31-2018 End: 12-28-2020 Nitroglycerin Active 0.4 MG SL every 5 to 15 minutes December 28, 2020 2:51pm do not exceed 3 doses per episode; seek medical attention if persists after 3 doses; Start: 06-02-2010 End: 01-01-2019 Nitroglycerin 0.4 mg tablet, sublingual Discontinued 0.4 mg SL Q5M as needed for chest pain 90 December 28, 2018 10:31am January 01, 2019 2:30pm Comment on above: Dissolve 0.4 mg unde r the tongue every 5 minutes as needed. microencapsulated potassium chloride 10 meq extended release oral tablet (20 sources) Start: 04-17-2017 End: 02-22-2024 Potassium Chloride (Klor-Con M10) 10 mEq tablet,ER particles/crystals Discontinued 0 .ROUTE .COMPLEX 360 3 February 02, 2023 4:08pm February 22, 2024 4:43pm TAKE 2 TABLETS TWICE A DAY Start: 04-17-2017 End: 01-11-2021 take 20 mEq by mouth twice daily Potassium Chloride Discontinued 20 MEQ PO TWICE A DAY 360 February 10, 2020 7:22pm January 11, 2021 6:21pm Start: 05-14-2012 KLOR-CON 10 10 mEq tablet Start: 06-02-2010 take 1 tablet by ronald th twice daily POTASSIUM CHLORIDE ER 10 MEQ CR-TABS One tablet by mouth twice daily POTASSIUM CHLORIDE [id number] Odalys Hanna take 3 tablets by mo ut twice daily POTASSIUM CHLORIDE (KLOR-CON 10 ORAL) Take by mouth twice daily. Take 3 tablets 0 Active Comment on above: Take by mouth twice daily. Take 3 tablets PROBIOTIC PRODUCT (4 sources) Start: 5 take 1 tablet by mouth once daily 4X PROBIOTIC TABS One tablet by mouth daily PROBIOTIC PRODUCT [id number] Bobby Ribera MD PROBIOTIC PRODUCT (1 source) Start: 5 take 1 tablet by mouth once daily 4X PROBIOTIC TABS One tablet by mouth daily PROBIOTIC PRODUCT [id number] Bobby Ribera MD rosuvastatin calcium 20 mg oral tablet (20 sources) HMG-CoA Reductase Inhibitor Start: 1 End: Rosuvastatin 20 mg tablet Discontinued 0 .ROUTE .COMPLEX 90 3 January 03, 2022 7:04pm February 20, 2023 2:29pm TAKE 1 TABLET DAILY Comment on above: Take 20 mg by mouth once daily. vit D3-folic [id number] 2,000-800-0.32 unit-mcg-mg tab (1 source) vit D3-folic [id number]-[id number]-B12 2,000-800-0.32 unit-mcg-mg tab Take by mouth. 0 Active Comment on above: Take by mouth. Problems Active Problems Problem Classification Problem Date Documented Da te Episodic/Chronic Administrative/social admission (2 sources) First encounter by subject; Translations: [Persons encountering health services in other specified circumstances] 05-06-2024 Episodic Cancer of uterus (5 sources) Malignant neoplasm of endometrium; Translations: [Malignant neoplasm of uterus] Onset: 09-29-2015 09-29-2015 Chronic Cardiac dysrhythmias (12 sources) Ventricular premature beats; Translations: [Ventricular premature depolarization] Onset: 06-02-2010 06-02-2010 Chronic Coronary atherosclerosis and other heart disease (16 sources) Coronary atherosclerosis; Translations: [Atherosclerotic heart disease of tanana coronary artery without angina pectoris] Onset: 06-02-2010 06-02-2010 Chronic Disorders of lipid metabolism (13 sources) Hyperlipidemia; Translations: [Pure hypercholesterolemi a] Onset: 06-02-2010 06-02-2010 Chronic Essential hypertension (16 sources) Hypertensive disorder; Translations: [Essential hypertension] Onset: 06-02-2010 06-02-2010 Chronic Heart valve disorders (2 sources) Cardiac murmur, unspecified; Translations: [Cardiac murmur, unspecified] Onset: 11-20-2024 Episodic Osteoporosis (6 sources) Osteoporosis; Translations: [Age-related osteoporosis without current pathological fracture] 12-18-2020 Chronic Other acquired deformities (5 sources) Scoliosis deformity of spine; Translations: [Scoliosis, unspecified] 12-18-2020 Chronic Other bone disease and musculoskeletal deformities (2 sources) Osteopenia; Translations: [Other specified disorders of bone density and structure, unspecified site] 05-06-2024 Episodic Other injuries and conditions due to external causes (2 sources) Injury of wrist; Translations: [Unspecified injury of left wrist, hand and finger(s), initial encounter] Episodic Other injuries and conditions due to external causes (3 sources) Injury of left wrist; Translations: [Unspecified injury of left wrist, hand and finger(s), initial encounter] 12-05-2020 Episodic Other lower respiratory disease (6 sources) Dyspnea on exertion; Translations: [Other forms of dyspnea] 12-08-2021 Episodic Other lower respiratory disease (2 sources) Other forms of dyspnea; Translations: [Other forms of dyspnea] Onset: 11-20-2024 Episodic Other nervous system disorders (1 source) Other chronic pain; Translations: [Other chronic pain] Onset: 11-05-2024 Chronic Other nervous system disorders (2 sources) Numbness and tingling sensation of skin; Translations: [Anesthesia of skin] 05-06-2024 Episodic Other screening for suspected conditions (not mental disorders or infectious disease) (1 source) Serum creatinine raised; Translations: [Other specified abnormal findings of blood chemistry] 11-05-2024 Episodic Other upper respiratory infections (2 sources) Sore throat symptom; Translations: [Acute pharyngitis, unspecified] Episodic Spondylosis; intervertebral disc disorders; other back problems (1 source) Chronic low back pain; Translations: [Chronic left-sided low back pain] 11-05-2024 Episodic Thyroid disorders (3 sources) Acquired hypothyroidism; Translations: [Hypothyroidism, unspecified] 05-06-2024 Chronic Unclassified (1 source) Abdominal aortic aneurysm, without rupture, unspecified; Translations: [Abdominal aortic aneurysm, without rupture, unspecified] Onset: 12-02-2024 Unclassified (1 source) Low back pain, unspecified; Translations: [Low back pain, unspecified] Onset: 12-02-2024 Past or Other Problems Problem Classification Problem Date Documented Da te Episodic/Chronic Biliary tract disease (2 sources) Biliary sludge; Translations: [Other specified diseases of gallbladder] Onset: 04-23-2013 04-23-2013 Episodic Coronary atherosclerosis and other heart disease (10 sources) Coronary angioplasty status; Translations: [Patient post percutaneous transluminal coronary angioplasty] Onset: 10-07-2004 06-02-2010 Episodic Comment on above: Angioplasty and rota tional atherectomy to LAD 10/27/04 Other bone disease and musculoskeletal deformities (1 source) Other specified disorders of bone density and structure, unspecified site; Translations: [Other specified disorders of bone density and structure, unspecified site] Onset: 05-14-2024 Episodic Other circulatory disease (5 sources) Hypotension, unspecified; Translations: [Hypotension, unspecified] Onset: 04-01-2016 04-01-2016 Episodic Other gastrointestinal disorders (1 source) Abdominal bloating; Translations: [Abdominal distension (gaseous)] Onset: 04-23-2013 04-23-2013 Episodic Other gastrointestinal disorders (1 source) Burping; Translations: [Eructation] Onset: 04-23-2013 04-23-2013 Episodic Other lower respiratory disease (10 sources) Dyspnea; Translations: [Dyspnea, unspecified] Onset: 06-02-2010 06-02-2010 Episodic Residual codes; unclassified (1 source) Asymptomatic menopausal state; Translations: [Asymptomatic menopausal state] Onset: 05-27-2024 Episodic Unclassified (5 sources) FH: Hypertension; Translations: [Family history of ischemic heart disease and other diseases of the circulatory system] 01-24-2014 Episodic Results Test Name Value Interpretation Reference Range Facility Cardiology Visit Reporton Cardiology Visit Report [facility] [address] [place] [address] OFFICE VISIT Date of Service: 11/20/24 MR#: [id number] Acct: [id number] Name: MALLORY PEREZ Rep #: [id number] : 1940 Provider: JEREMY Kothari Age/Sex: 84/F Location: [facility] Status: Signed HPI HPI History of Present Illness Details: Mallory Perez is an 84-year-old female who presents to office today for follow-up for monitoring her cardiovascular health. She has a history of coronary artery disease status post remote PCI to the LAD, hyperlipidemia and hypertension. She reports she was recently diagnosed with an abdominal aortic aneurysm through her PCP and reports this planned to be evaluated via ultrasound ordered by PCP. Upon presentation today, patient reports doing well. She reports noticing subtle SOB with activity. She notices SOB with steep hills and stairs. This has been more so noticed in the last 1 year. She reports noticing a flutter in her chest the other night as she was lying down for bed that lasted a few seconds. She denies any recurrence of this fluttering feeling. She reports pain from orthopedic problems. Further ROS below. Intake Vital Signs 02/22/24 09:08 05/21/24 08:19 11/20/24 08:16 11/20/24 11:25 Height 5 ft 4 in 5 ft 4 in 5 ft 4 in Weight: 124 lb BMI 21.2 BP 159/71 H 160/70 H Blood Pressure Location Lt brachial Lt brachial Position Sitting Sitting Respiration 18 Pulse 61 Pulse Source Monitor Pulse Oximetry (%) 98 Intake Visit Reasons: 9 M FU Check And Transfer Beader Required: No Is patient in pain?: No Allergies No Known Allergies Allergy (Verified 11/20/24 11:00) Medications ???Medication ???Instructions ???Recorded ???Confirmed ???Type aspirin 81 mg tablet,delayed 81 mg PO QDAY 03/12/18 10/15/25 Hi story release cholecalciferol (vitamin D3) 50 2,000 unit PO DAILY 11/30/1711/20 History mcg (2,000 unit) capsule acetaminophen 325 mg tablet 325 mg PO ONCE PRN 12/18/20 History nitroglycerin 0.4 mg sublingual 0.4 mg sublingual Q5-15M PRN chest 02/20/23 11/20/24 Rx tablet pain #25 tabs rosuvastatin 20 mg tablet 20 mg PO DAILY #90 tabs 12/07/23 1 Rx atenolol 50 mg tablet 50 mg PO QDAY ONCE DAILY #90 tabs 02/28/24 11/20/24 Rx losartan 100 mg tablet 100 mg PO DAILY #90 tabs 04/10/24 11/20/24 Rx hydrochlorothiazide 25 mg tablet 25 mg PO DAILY #90 TABLETS 5 11/20/24 Rx levothyroxine 50 mcg tablet 50 mcg PO .COMPLEX 11/05/24 History (Synthroid) mecobalamin (vitamin B12) 1,000 1,000 mcg PO QDAY 11/05/24 5 History mcg chewable tablet (B12 Active) Have you fallen in the past year?: No Nurse's Note: has abdominal aortic aneurysm PFSH Medical History Uterine cancer Sciatica Scoliosis Osteoporosis Essential hypertension Pure hypercholesterolemia Hiatal hernia Family history of hypertension Atherosclerotic heart disease of tanana coronary artery without angina pectoris Premature ventricular contraction Surgical History History of cholecystectomy History of total hysterectomy History of tonsillectomy Postsurgical percutaneous transluminal coronary angioplasty (PTCA) status ( 10/31/04) Family History Father CHF (congestive heart failure) Mother CAD (coronary artery disease) Uterine cancer Brother CAD (coronary artery disease) Hypertension Sister Cancer uterine Social History household members: spouse current occupational status: retired 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 Smoking Status: Never smoker alcohol intake: never substance use type: does not use caffeine: Yes Type: tea do you feel safe at home: Yes ROS Const Const: Negative for fatigue, weakness, headache(s) or frequent falls Eyes Eyes: Negative for blurry vision ENT ENT: Negative for headache(s), dizziness or Nosebleed/epistaxis Cardio Chest Pain: No Palpitations: Yes Edema: None Muscle aches with walking: None Resp Respiratory: Positive for SOB with activity; Negative for SOB at rest or SOB orthopnea SOB lying down GI GI: Negative nausea, vomiting, heartburn, bright, red blood in stools or black,tarry stools : Negative for hematuria Neuro Neuro: Negative for dizziness, lightheadedness, near syncope, syncope, frequent falls, headache(s), weakness or blurry vision Endo Endo: Negative for fatigue Cardiology Exam Const Appearance: cooperative, comfortable, no acute distress and well developed; Negative diaphoretic or ill appearing Nu (more content not included)... Normal [facility] CBC W/Diff, Automatedon 10-0 2-2024 Absolute Lymph 2.76 X10 3/uL Normal 0.83-4.51 [facility] Comment on above: Performed By: #### L 500.4050, L100.0100 ####[facility] [address] [place], [address] Absolute Neut 3.7 X10 3/uL Normal 2.0-7.7 [facility] Comment on above: Performed By: #### L 500.4050, L100.0100 ####[facility] [address] [place], [address] Basophils/100 WBC (Bld) 0.9 % Normal 0-1 [facility] Comment on above: Performed By: #### L 500.4050, L100.0100 ####[facility] [address] [place], [address] Eosinophils/100 WBC (Bld) 4.0 % Normal 0-5 [facility] Comment on above: Performed By: #### L 500.4050, L100.0100 ####[facility] [address] [place], [address] Erythrocyte distribution width (RBC) [Ratio] 12.4 % Normal 11.6-14.6 [facility] Comment on above: Performed By: #### L 500.4050, L100.0100 ####[facility] [address] [place], [address] Hematocrit (Bld) [Volume fraction] 33.1 % Low 37-47 [facility] Comment on above: Performed By: #### L 500.4050, L100.0100 ####[facility] [address] [place], [address] Hemoglobin (Bld) [Mass/Vol] 11.4 g/dL Low 12.0-15.0 [facility] Comment on above: Performed By: #### L 500.4050, L100.0100 ####[facility] [address] [place], [address] IG% 0.300 Normal 0.0-0.9 [facility] Comment on above: Result Comment: IG% - Immature Granulocytes (promyelocytes, myelocytes and metamyelocytes) > 1% indicates that a LEFT SHIFT is Present. Performed By: #### L 500.4050, L100.0100 ####[facility] [address] [place], [address] Lymphocytes/100 WBC (Bld) 36.7 % Normal 19-41 [facility] Comment on above: Performed By: #### L 500.4050, L100.0100 ####[facility] [address] [place], [address] MCH (RBC) [Entitic mass] 32.7 pg High 27.0-32.0 [facility] Comment on above: Performed By: #### L 500.4050, L100.0100 ####[facility] [address] [place], [address] MCHC (RBC) [Mass/Vol] 34.4 g/dL Normal 32-36 [facility] Comment on above: Performed By: #### L 500.4050, L100.0100 ####[facility] [address] [place], [address] MCV (RBC) [Entitic vol] 94.8 fL Normal 81-99 [facility] Comment on above: Performed By: #### L 500.4050, L100.0100 ####[facility] [address] [place], [address] Monocytes/100 WBC (Bld) 8.5 % Normal 0-10 [facility] Comment on above: Performed By: #### L 500.4050, L100.0100 ####[facility] [address] [place], [address] Neutrophils/100 WBC (Bld) 49.6 % Normal 47-70 [facility] Comment on above: Performed By: #### L 500.4050, L100.0100 ####[facility] [address] [place], [address] Nucleated RBC (Bld) [#/Vol] 0 10*3/uL Normal 0-5 [facility] Comment on above: Performed By: #### L 500.4050, L100.0100 ####[facility] [address] [place], [address] Platelet mean volume (Bld) [Entitic vol] 10.3 fL Normal 6.2-12.0 [facility] Comment on above: Performed By: #### L 500.4050, L100.0100 ####[facility] [address] [place], [address] Platelets (Bld) [#/Vol] 216 10*3/uL Normal 150-450 [facility] Comment on above: Performed By: #### L 500.4050, L100.0100 ####[facility] [address] [place], [address] RBC (Bld) [#/Vol] 3.49 10*6/uL Low 4.2-5.4 [facility] Comment on above: Performed By: #### L 500.4050, L100.0100 ####[facility] [address] [place], [address] RDW SD 42.8 fl Normal 35.1-43.9 [facility] Comment on above: Performed By: #### L 500.4050, L100.0100 ####[facility] [address] [place], [address] WBC (Bld) [#/Vol] 7.5 10*3/uL Normal 4.4-11.[address] [facility] Comment on above: Performed By: #### L 500.4050, L100.0100 ####[facility] [address] [place], [address] Comprehensive Metabolic Prof [facility] 11-07-2024 Albumin [Mass/Vol] 4.3 g/dL Normal 3.4-4.[address] [facility] Comment on above: Performed By: #### L 500.4050, L100.0100 ####[facility] [address] [place], [address] Albumin/Globulin [Mass ratio] 1.5 {ratio} Normal 0.9-2.4 [facility] Comment on above: Performed By: #### L 500.4050, L100.0100 ####[facility] [address] [place], [address] ALK PHOS 82 U/L Normal 35-104 [facility] Comment on above: Performed By: #### L 500.4050, L100.0100 ####[facility] [address] [place], [address] ALT [Catalytic activity/Vol] 20 U/L Normal <=34 [facility] Comment on above: Performed By: #### L 500.4050, L100.0100 ####[facility] [address] [place], [address] AST [Catalytic activity/Vol] 29 U/L Normal <=31 [facility] Comment on above: Performed By: #### L 500.4050, L100.0100 ####[facility] [address] [place], [address] Bilirubin [Mass/Vol] 0.68 mg/dL Normal 0.00-1.30 [facility] Comment on above: Performed By: #### L 500.4050, L100.0100 ####[facility] [address] [place], [address] BUN/CRE 13.3 RATIO Normal 10-20 [facility] Comment on above: Performed By: #### L 500.4050, L100.0100 ####[facility] [address] [place], [address] Calcium [Mass/Vol] 10.0 mg/dL Normal 7.6-11.[address] [facility] Comment on above: Performed By: #### L 500.4050, L100.0100 ####[facility] [address] [place], [address] Chloride [Moles/Vol] 102 mmol/L Normal 98-108 [facility] Comment on above: Performed By: #### L 500.4050, L100.0100 ####[facility] [address] [place], [address] CO2 [Moles/Vol] 25.8 mmol/L Normal 21.0-32.0 [facility] Comment on above: Performed By: #### L 500.4050, L100.0100 ####[facility] [address] [place], [address] Creatinine [Mass/Vol] 1.79 mg/dL High 0.70-1.20 [facility] Comment on above: Performed By: #### L 500.4050, L100.0100 ####[facility] [address] [place], [address] GAP 11 Normal 5-15 [facility] Comment on above: Performed By: #### L 500.4050, L100.0100 ####[facility] [address] [place], [address] GFR/1.73 sq M.predicted among non-blacks MDRD (S/P/Bld) [Vol rate/Area] 28 mL/min/{1.73_m2} Low >60 [facility] Comment on above: Result Comment: mL/m in/1.73m2 CKD-EPI Creatinine Equation (2020) Performed By: #### L 500.4050, L100.0100 ####[facility] [address] [place], [address] Globulin (S) [Mass/Vol] 2.9 g/dL Normal 2.2-4.2 [facility] Comment on above: Performed By: #### L 500.4050, L100.0100 ####[facility] [address] [place], [address] Glucose [Mass/Vol] 107 mg/dL High 70-[address] [facility] Comment on above: Performed By: #### L 500.4050, L100.0100 ####[facility] [address] [place], [address] Potassium [Moles/Vol] 4.4 mmol/L Normal 3.3-5.1 [facility] Comment on above: Performed By: #### L 500.4050, L100.0100 ####[facility] [address] [place], [address] Sodium [Moles/Vol] 138 mmol/L Normal 133-[address] [facility] Comment on above: Performed By: #### L 500.4050, L100.0100 ####[facility] [address] [place], [address] T PROT 7.2 g/dL Normal 5.9-8.4 [facility] Comment on above: Performed By: #### L 500.4050, L100.0100 ####[facility] [address] [place], [address] Urea nitrogen [Mass/Vol] 24 mg/dL High 4-19 [facility] Comment on above: Performed By: #### L 500.4050, L100.0100 ####[facility] [address] [place], [address] Lumbar Spine 2 or 3 Viewson 11-07-2024 Lumbar Spine 2 or 3 Views [facility] [address] [place] [address] Lumbar Spine 2 or 3 Views MR#: [id number] Acct: [id number] Name: MALLORY PEREZ Rep #: [id number] : 1940 F 84 From: Eber Mitchell MD PCP: Dr. Sherley Malik MD Status: REG CLI Study: Lumbar Spine 2 or 3 Views Date of Exam: Exam# [id number] Ordering Dr: Sherley Malik MD PROCEDURE: LUMBAR SPINE 2 OR 3 VIEWS 11/07/2024 REASON FOR EXAM: CHRONIC PAIN, WORSENING TECHNIQUE: Procedure Code: RADSPLL Modality: DX Procedure: LUMBAR SPINE 2 OR 3 VIEWS COMPARISON: None. FINDINGS: There is no evidence of fracture. There is multilevel degenerative disc disease of the lower thoracic and lumbar spine most severe at the T12-L1 through L2-3 levels with narrowing of the disc spaces and marginal osteophytes. There is multilevel facet arthropathy with degenerative grade 1 retrolisthesis of L2 on L3 and degenerative grade 1 anterolisthesis of L4 on L5. There is moderate levoscoliosis of the spine centered at the L1 level. There is calcific vascular disease of the abdominal aorta. There is an infrarenal abdominal aortic aneurysm measuring 3.5 cm in AP dimension. RAD/Lumbar Spine 2 or 3 Views IMPRESSION: 1. Multilevel degenerative disc disease with moderate levoscoliosis, as described. 2. Multilevel facet arthropathy with spondylolisthesis L2 on L3 and L4 on L5 as described. 3. Abdominal aortic aneurysm. Reading Location: [facility] CC: Dr. Sherley Malik MD Harness Cleaner: Signed Normal [facility] Internal Medicine Office Vis iton 11-04-2024 Internal Medicine Office Visit [facility] Internal Medicine [facility] [place] [address] [place] [address] OFFICE VISIT Date of Service: 11/05/24 MR#: [id number] Acct: [id number] Name: MALLORY PEREZ Rep #: [id number] : 1940 Provider: Dr. Sherley denton MD Age/Sex: 84/F Location: [facility] Status: Signed Intake Vital Signs 05/06/24 10:50 05/21/24 08:19 11/05/24 11:09 Height 5 ft 4 in 5 ft 4 in 5 ft 4 in Weight: 123 lb BMI 21.1 BP 136/82 H Blood Pressure Location Lt brachial Position Sitting Respiration 14 Pulse 62 Pulse Source Monitor Temp 97.6 F L Temp Source Temporal Pulse Oximetry (%) 95 Oxygen Delivery Method room air Intake Visit Reasons: 6 M Check And Transfer Beader Required: No Is patient in pain?: Yes (L hip- shopulders) Pain scale (1-10): 4 Allergies No Known Allergies Allergy (Verified 11/05/24 10:54) Medications ???Medication ???Instructions ???Recorded ???Confirmed ???Type Bifidobacterium infantis 4 mg 4 mg PO QDAY 04/17/17 11/05/24 His tory capsule (Align (B.infantis)) aspirin 81 mg tablet,delayed 81 mg PO QDAY 04/17/17 11/05/24 Hi story release cholecalciferol (vitamin D3) 50 2,000 unit PO DAILY 11/30/1711/05 History mcg (2,000 unit) capsule acetaminophen 325 mg tablet 325 mg PO ONCE PRN 12/18/20 History nitroglycerin 0.4 mg sublingual 0.4 mg sublingual Q5-15M PRN chest 02/20/23 11/05/24 Rx tablet pain #25 tabs rosuvastatin 20 mg tablet 20 mg PO DAILY #90 tabs 12/07/23 0 11/05/24 Rx atenolol 50 mg tablet 50 mg PO QDAY ONCE DAILY #90 tabs 02/28/24 11/05/24 Rx losartan 100 mg tablet 100 mg PO DAILY #90 tabs 04/10/24 11/05/24 Rx denosumab 60 mg/mL subcutaneous 60 mg subcut [id number] #1 mL 11/05/24 Rx syringe (Prolia) hydrochlorothiazide 25 mg tablet 25 mg PO DAILY #90 TABLETS 5 11/05/24 Rx levothyroxine 50 mcg tablet 50 mcg PO .COMPLEX 11/05/24 Histo ry (Synthroid) mecobalamin (vitamin B12) 1,000 1,000 mcg PO QDAY 11/05/24 5 History mcg chewable tablet (B12 Active) Have you fallen in the past year?: No Nurse's Note: Pt has questions about Prolia, she thought that the prolia would help with pain, but then read into it. Would like to discuss prior to getting injection. She states that she wants to discuss today with provider. Pt states she is always in pain from sciatica, which is getting more frequent as she has had it for years and did PT successfully in the past for it many years ago. The L side is affected by this and pinches then shoots down the leg. She states sx's are alleviated by rest. Pt also c/o scoliosis pain which is ongoing and states that pain level in general with these things is off the charts over a 10/10, and that the pain is getting more frequently and making her lifestyle more Sedentary. She states her pain level is at a 4 today due to taking it easy. She states that she will get her flu vaccine at a later time. 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 Premature ventricular contraction Surgical History History of cholecystectomy History of total hysterectomy History of tonsillectomy Postsurgical percutaneous transluminal coronary angioplasty (PTCA) status ( 10/31/04) Family History Father CHF (congestive heart failure) Mother CAD (coronary artery disease) Uterine cancer Brother CAD (coronary artery disease) Hypertension Sister Cancer uterine Social History household members: spouse current occupational status: retired 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 She is due for some follow up blood work. She is not due for any further screening. She plans on getting her flu shot later in the season. She doesn't smoke and doesn't need any refills. She reports she is eating healthy and staying active, with walking every morning. She does check her blood pressure at home and reports it is still often in the 110s-130s/50-60s. She reports she has had her cuff checked for accuracy, but states it has been a while. She is taking her medication as prescribed wi (more content not included)... Normal [facility] Bone density reportOrdered B y: Jim Lainez on 05-22-2024 Study report Skeletal system DXA [facility] [address] [place] [address] Dexa Bone Density Study MR#: [id number] Acct: [id number] Name: MALLORY PEREZ Rep #: [id number] : 1940 F 83 From: Rajinder Lainez MD PCP: Dr. Sherley Malik MD Status: REG CLI Study:Dexa Bone Density Study Date of Exam: 05/21/24 Exam# [id number] Ordering Dr: Sherley Malik MD PROCEDURE: DEXA BONE DENSITY STUDY 05/21/2024 REASON FOR EXAM: FOLLOW UP F, age 83 y/o . Postmenopausal. TECHNIQUE: DXA scan of the lumbar spine and both hips, using make and model. [facility]KS[facility] Position[facility] COMPARISON: Comparison is made with prior study dated September 30, 2014. FINDINGS: BMD and T-SCORES Lumbar spine: 0.959 g/cm2, T-Score -0.8 2.0 change from prior: Loss of 12.9% Left femoral neck: 0.574 g/cm2, T-Score -2.5 Femoral neck comparison data not recommended for monitoring change. Left total hip: 0.733 g/cm2, T-Score -1.7 Change from prior: Loss of 6% Right femoral neck: 0.604 g/cm2, T-Score -2.2 Femoral neck comparison data not recommended for monitoring change. Right total hip: 0.763 g/cm2, T-Score -1.5 Change from prior: Loss of 5.7% Fracture Risk Calculation: FRAX (10-year Fracture Risk) Score: FRAX scores should never be reported in a patient with osteoporosis on DEXA or for any patient that is on bone medication. The patient doesmeet the pharmacological treatment recommendations for prevention of osteoporosis BD/Dexa Bone Density Study IMPRESSION: OSTEOPOROSIS. Recommend follow-up as clinically warranted. Reading Location: [facility] CC: Dr. Sherley Malik MD ~ Harness Cleaner: Signed [facility] Dexa Bone Density Studyon Dexa Bone Density Study [facility] Imaging Services [address] [place] [id number] Dexa Bone Density Study MR#: [id number] Acct: [id number] Name: MALLORY PEREZ Rep #: [id number] : 1940 F 83 From: Jim amezcua MD PCP: Dr. Sherley Malik MD Status: REG CLI Study: Dexa Bone Density Study Date of Exam: 05/21/24 Exam# [id number] Ordering Dr: Sherley Malik MD PROCEDURE: DEXA BONE DENSITY STUDY 05/21/2024 REASON FOR EXAM: FOLLOW UP F, age 83 y/o . Postmenopausal. TECHNIQUE: DXA scan of the lumbar spine and both hips, using make and model. REFERENCE LINKS: [facility] Adult Positions COMPARISON: Comparison is made with prior study dated September 30, 2014. FINDINGS: BMD and T-SCORES Lumbar spine: 0.959 g/cm2, T-Score -0.8 2.0 change from prior: Loss of 12.9% Left femoral neck: 0.574 g/cm2, T-Score -2.5 Femoral neck comparison data not recommended for monitoring change. Left total hip: 0.733 g/cm2, T-Score -1.7 Change from prior: Loss of 6% Right femoral neck: 0.604 g/cm2, T-Score -2.2 Femoral neck comparison data not recommended for monitoring change. Right total hip: 0.763 g/cm2, T-Score -1.5 Change from prior: Loss of 5.7% Fracture Risk Calculation: FRAX (10-year Fracture Risk) Score: FRAX scores should never be reported in a patient with osteoporosis on DEXA or for any patient that is on bone medication. The patient doesmeet the pharmacological treatment recommendations for prevention of osteoporosis BD/Dexa Bone Density Study IMPRESSION: OSTEOPOROSIS. Recommend follow-up as clinically warranted. Reading Location: [place] [address] CC: Dr. Sherley Malik MD Harness Cleaner: Signed Normal [facility] Absolute neutrophil countOrd ered By: Sherley Malik on 05-08-2024 Neutrophils (Bld) [#/Vol] 4.0 10*3/uL 2.0-7.7 [facility] Anion gap in Serum or Plasma Ordered By: Sherley Mlaik on 05-08-2024 Anion gap [Moles/Vol] 12 mmol/L 5-15 [facility] BUN/creatinine ratioOrdered By: Sherley Malik on 05-08-2024 Urea nitrogen/Creatinine [Mass ratio] 17.0 mg/mg 10-20 [facility] Basophil percentageOrdered B y: Sherley Malik on 05-08-2024 Basophils/100 WBC (Bld) 0.9 % 0-1 [facility] Bilirubin, totalOrdered By: Sherley Malik on 05-08-2024 Bilirubin [Mass/Vol] 0.60 mg/dL 0.00-1.30 [facility] CBC W/Diff, Automatedon Absolute Lymph 3.26 X10 3/uL Normal 0.83-4.51 [facility] Comment on above: Performed By: #### L 500.4050, L500.4100, L100.0100, L503.0106, L506.1001, L501.9520 #### [facility] [address] [place], [address] Absolute Neut 4.0 X10 3/uL Normal 2.0-7.7 [facility] Comment on above: Performed By: #### L 500.4050, L500.4100, L100.0100, L503.0106, L506.1001, L501.9520 #### [facility] [address] [place], [address] Basophils/100 WBC (Bld) 0.9 % Normal 0-1 [facility] Comment on above: Performed By: #### L 500.4050, L500.4100, L100.0100, L503.0106, L506.1001, L501.9520 #### [facility] [address] [place], [address] Eosinophils/100 WBC (Bld) 2.3 % Normal 0-5 [facility] Comment on above: Performed By: #### L 500.4050, L500.4100, L100.0100, L503.0106, L506.1001, L501.9520 #### [facility] [address] [place], [address] Erythrocyte distribution width (RBC) [Ratio] 12.1 % Normal 11.6-14.6 [facility] Comment on above: Performed By: #### L 500.4050, L500.4100, L100.0100, L503.0106, L506.1001, L501.9520 #### [facility] [address] [place], [address] Hematocrit (Bld) [Volume fraction] 34.2 % Low 37-47 [facility] Comment on above: Performed By: #### L 500.4050, L500.4100, L100.0100, L503.0106, L506.1001, L501.9520 #### [facility] [address] [place], [address] Hemoglobin (Bld) [Mass/Vol] 11.6 g/dL Low 12.0-15.0 [facility] Comment on above: Performed By: #### L 500.4050, L500.4100, L100.0100, L503.0106, L506.1001, L501.9520 #### [facility] [address] [place], [address] IG% 0.400 Normal 0.0-0.9 [facility] Comment on above: Result Comment: IG% - Immature Granulocytes (promyelocytes, myelocytes and metamyelocytes) > 1% indicates that a LEFT SHIFT is Present. Performed By: #### L 500.4050, L500.4100, L100.0100, L503.0106, L506.1001, L501.9520 #### [facility] [address] [place], [address] Lymphocytes/100 WBC (Bld) 40.0 % Normal 19-41 [facility] Comment on above: Performed By: #### L 500.4050, L500.4100, L100.0100, L503.0106, L506.1001, L501.9520 #### [facility] [address] [place], [address] MCH (RBC) [Entitic mass] 32.0 pg Normal 27.0-32.0 [facility] Comment on above: Performed By: #### L 500.4050, L500.4100, L100.0100, L503.0106, L506.1001, L501.9520 #### [facility] [address] [place], [address] MCHC (RBC) [Mass/Vol] 33.9 g/dL Normal 32-36 [facility] Comment on above: Performed By: #### L 500.4050, L500.4100, L100.0100, L503.0106, L506.1001, L501.9520 #### [facility] [address] [place], [address] MCV (RBC) [Entitic vol] 94.2 fL Normal 81-99 [facility] Comment on above: Performed By: #### L 500.4050, L500.4100, L100.0100, L503.0106, L506.1001, L501.9520 #### [facility] [address] [place], [address] Monocytes/100 WBC (Bld) 7.7 % Normal 0-10 [facility] Comment on above: Performed By: #### L 500.4050, L500.4100, L100.0100, L503.0106, L506.1001, L501.9520 #### [facility] [address] [place], [address] Neutrophils/100 WBC (Bld) 48.7 % Normal 47-70 [facility] Comment on above: Performed By: #### L 500.4050, L500.4100, L100.0100, L503.0106, L506.1001, L501.9520 #### [facility] [address] [place], [address] Nucleated RBC (Bld) [#/Vol] 0 10*3/uL Normal 0-5 [facility] Comment on above: Performed By: #### L 500.4050, L500.4100, L100.0100, L503.0106, L506.1001, L501.9520 #### [facility] [address] [place], [address] Platelet mean volume (Bld) [Entitic vol] 10.6 fL Normal 6.2-12.0 [facility] Comment on above: Performed By: #### L 500.4050, L500.4100, L100.0100, L503.0106, L506.1001, L501.9520 #### [facility] [address] [place], [address] Platelets (Bld) [#/Vol] 207 10*3/uL Normal 150-450 [facility] Comment on above: Performed By: #### L 500.4050, L500.4100, L100.0100, L503.0106, L506.1001, L501.9520 #### [facility] [address] [place], [address] RBC (Bld) [#/Vol] 3.63 10*6/uL Low 4.2-5.4 [facility] Comment on above: Performed By: #### L 500.4050, L500.4100, L100.0100, L503.0106, L506.1001, L501.9520 #### [facility] [address] [place], [address] RDW SD 42.3 fl Normal 35.1-43.9 [facility] Comment on above: Performed By: #### L 500.4050, L500.4100, L100.0100, L503.0106, L506.1001, L501.9520 #### [facility] [address] [place], [address] WBC (Bld) [#/Vol] 8.2 10*3/uL Normal 4.4-11.[address] [facility] Comment on above: Performed By: #### L 500.4050, L500.4100, L100.0100, L503.0106, L506.1001, L501.9520 #### [facility] [address] [place], [address] Calculated very low density lipoprotein (VLDL) cholesterol measurementOrdered By: Sherley Malik on 05-08-2024 VLDL Cholesterol 23 mg/dL 5-40 [facility] Carbon dioxide, total [Moles /volume] in Central venous bloodOrdered By: Sherley Malik on 05-08-2024 CO2 [Moles/Vol] 24.3 mmol/L 21.0-32.0 [facility] Chloride assayOrdered By: Kosta Malik on 05-08-2024 Chloride [Moles/Vol] 103 mmol/L 98-108 [facility] Comprehensive Metabolic Prof ilon 05-08-2024 Albumin [Mass/Vol] 4.2 g/dL Normal 3.4-4.[address] [facility] Comment on above: Performed By: #### L 500.4050, L500.4100, L100.0100, L503.0106, L506.1001, L501.9520 #### [facility] [address] [place], [address] Albumin/Globulin [Mass ratio] 1.4 {ratio} Normal 0.9-2.4 [facility] Comment on above: Performed By: #### L 500.4050, L500.4100, L100.0100, L503.0106, L506.1001, L501.9520 #### [facility] [address] [place], [address] ALK PHOS 74 U/L Normal 35-104 [facility] Comment on above: Performed By: #### L 500.4050, L500.4100, L100.0100, L503.0106, L506.1001, L501.9520 #### [facility] [address] [place], [address] ALT [Catalytic activity/Vol] 20 U/L Normal <=34 [facility] Comment on above: Performed By: #### L 500.4050, L500.4100, L100.0100, L503.0106, L506.1001, L501.9520 #### [facility] [address] [place], [address] AST [Catalytic activity/Vol] 27 U/L Normal <=31 [facility] Comment on above: Performed By: #### L 500.4050, L500.4100, L100.0100, L503.0106, L506.1001, L501.9520 #### [facility] [address] [place], [address] Bilirubin [Mass/Vol] 0.60 mg/dL Normal 0.00-1.30 [facility] Comment on above: Performed By: #### L 500.4050, L500.4100, L100.0100, L503.0106, L506.1001, L501.9520 #### [facility] [address] [place], [address] BUN/CRE 17.0 RATIO Normal 10-20 [facility] Comment on above: Performed By: #### L 500.4050, L500.4100, L100.0100, L503.0106, L506.1001, L501.9520 #### [facility] [address] [place], [address] Calcium [Mass/Vol] 9.9 mg/dL Normal 7.6-11.[address] [facility] Comment on above: Performed By: #### L 500.4050, L500.4100, L100.0100, L503.0106, L506.1001, L501.9520 #### [facility] [address] [place], [address] Chloride [Moles/Vol] 103 mmol/L Normal 98-108 [facility] Comment on above: Performed By: #### L 500.4050, L500.4100, L100.0100, L503.0106, L506.1001, L501.9520 #### [facility] [address] [place] [place], [address] CO2 [Moles/Vol] 24.3 mmol/L Normal 21.0-32.0 [facility] Comment on above: Performed By: #### L 500.4050, L500.4100, L100.0100, L503.0106, L506.1001, L501.9520 #### [facility] [address] [place], [address] Creatinine [Mass/Vol] 1.79 mg/dL High 0.70-1.20 [facility] Comment on above: Performed By: #### L 500.4050, L500.4100, L100.0100, L503.0106, L506.1001, L501.9520 #### [facility] [address] [place], [address] GAP 12 Normal 5-15 [facility] Comment on above: Performed By: #### L 500.4050, L500.4100, L100.0100, L503.0106, L506.1001, L501.9520 #### [facility] [address] [place], [address] GFR/1.73 sq M.predicted among non-blacks MDRD (S/P/Bld) [Vol rate/Area] 28 mL/min/{1.73_m2} Low >60 [facility] Comment on above: Result Comment: mL/m in/1.73m2 CKD-EPI Creatinine Equation (2020) Performed By: #### L 500.4050, L500.4100, L100.0100, L503.0106, L506.1001, L501.9520 #### [facility] [address] [place], [address] Globulin (S) [Mass/Vol] 3.0 g/dL Normal 2.2-4.2 [facility] Comment on above: Performed By: #### L 500.4050, L500.4100, L100.0100, L503.0106, L506.1001, L501.9520 #### [facility] [address] [place], [address] Glucose [Mass/Vol] 104 mg/dL High 70-[address] [facility] Comment on above: Performed By: #### L 500.4050, L500.4100, L100.0100, L503.0106, L506.1001, L501.9520 #### [facility] [address] [place], [address] Potassium [Moles/Vol] 3.8 mmol/L Normal 3.3-5.1 [facility] Comment on above: Performed By: #### L 500.4050, L500.4100, L100.0100, L503.0106, L506.1001, L501.9520 #### [facility] [address] [place], [address] Sodium [Moles/Vol] 139 mmol/L Normal 133-[address] [facility] Comment on above: Performed By: #### L 500.4050, L500.4100, L100.0100, L503.0106, L506.1001, L501.9520 #### [facility] [address] [place], [place], [id number] (323) T PROT 7.2 g/dL Normal 5.9-8.4 [facility] Comment on above: Performed By: #### L 500.4050, L500.4100, L100.0100, L503.0106, L506.1001, L501.9520 #### [facility] [address] [place], [address] Urea nitrogen [Mass/Vol] 30 mg/dL High 4-19 [facility] Comment on above: Performed By: #### L 500.4050, L500.4100, L100.0100, L503.0106, L506.1001, L501.9520 #### [facility] [address] [place], [address] Eosinophil percentageOrdered By: Sherley Malik on 05-08-2024 Eosinophils/100 WBC (Bld) 2.3 % 0-5 [facility] Erythrocyte distribution wid th (RBC) [Ratio]Ordered By: Sherley Malik on 05-08-2024 Erythrocyte distribution width (RBC) [Entitic vol] 42.3 fL 35.1-43.9 [facility] Erythrocyte distribution wid th ratioOrdered By: Sherley Malik on 05-08-2024 Erythrocyte distribution width (RBC) [Ratio] 12.1 % 11.6-14.6 [facility] GFR/1.73 sq M.predicted sergey g non-blacks MDRD (S/P/Bld) [Vol rate/Area]Ordered By: Sherley Malik on 05-08-2024 Estimated GFR (MDRD) Non-Af Amer 28 Low >60 [facility] Comment on above: mL/min/1.73m2 CKD-EP I Creatinine Equation (2020) Hematocrit Auto (Bld) [Volum e fraction]Ordered By: Sherley Malik on 05-08-2024 Hematocrit (Bld) [Volume fraction] 34.2 % Low 37-47 [facility] Hemoglobin measurementOrdere d By: Sherley Malik on 05-08-2024 Hemoglobin (Bld) [Mass/Vol] 11.6 g/dL Low 12.0-15.0 [facility] Immature granulocytes/100 WB C Auto (Bld)Ordered By: Sherley Malik on 05-08-2024 Immature granulocytes/100 WBC (Bld) 0.400 % 0.0-0.9 [facility] Comment on above: IG% - Immature Granu locytes (promyelocytes, myelocytes and metamyelocytes) > 1% indicates that a LEFT SHIFT is Present. L503.0106on 05-08-2024 Cobalamin (Vitamin B12) [Mass/Vol] 294 pg/mL Normal 180-914 [facility] Comment on above: Performed By: #### L 500.4050, L500.4100, L100.0100, L503.0106, L506.1001, L501.9520 #### [facility] [address] [facility] [place], [address] L506.1001on 05-08-2024 Vitamin D 25-OH 70.4 ng/mL Normal 30-100 [facility] Comment on above: Result Comment: Cathleen min D Status Deficiency: <20 ng/mL (50nmol/L) Insufficiency: 20-30 ng/mL (50-75 nmol/L) Sufficiency: 30-100 ng/mL (75-250 nmol/L) Toxicity: >100 ng/mL (>250 nmol/L) Performed By: #### L 500.4050, L500.4100, L100.0100, L503.0106, L506.1001, L501.9520 ####[facility] [address] [place], [address] LDL calc ser/plasOrdered By: Sherley Malik on 05-08-2024 LDL Cholesterol, Calculated 66 mg/dL [facility] Comment on above: Tolpnxvpnv=066-070 m g/dL & Higher Qcsn=169 mg/dL or greater Laboratory - Chemistry and C hemistry - challengeOrdered By: Shelrey Malik on 05-08-2024 AST [Catalytic activity/Vol] 27 U/L <32 [facility] Lipid Profileon 05-08-2024 CHOL:HDL 2.37 Normal [facility] Comment on above: Performed By: #### L 500.4050, L500.4100, L100.0100, L503.0106, L506.1001, L501.9520 #### [facility] [address] [place], [address] Cholesterol [Mass/Vol] 153 mg/dL Normal <=200 [facility] Comment on above: Result Comment: Chol esterol level, Desirable <200 mg/dL Borderline high cholesterol 200-239 mg/dL High cholesterol >=240 mg/dL Recommendations of the NCEP Adult Treatment Panel for the following risk-cutoff thresholds for the [place] population. Performed By: #### L 500.4050, L500.4100, L100.0100, L503.0106, L506.1001, L501.9520 #### [facility] [address] [place], [address] Cholesterol in HDL [Mass/Vol] 65 mg/dL Normal [facility] Comment on above: Result Comment: Lilli onal Cholesterol Education Program (NCEP) guidelines: <40 mg/dL: Low HDL-cholesterol (major risk factor for CHD) >= 60 mg/dL: High HDL-cholesterol (negative risk factor for CHD) HDL-cholesterol is affected by a number of factors, e.g. smoking, exercise, hormones, sex and age. Performed By: #### L 500.4050, L500.4100, L100.0100, L503.0106, L506.1001, L501.9520 #### [facility] [address] [place], [address] Cholesterol in LDL [Mass/Vol] 66 mg/dL Normal [facility] Comment on above: Result Comment: Bord stzlfb=818-297 mg/dL Higher Sayv=162 mg/dL or greater Performed By: #### L 500.4050, L500.4100, L100.0100, L503.0106, L506.1001, L501.9520 #### [facility] [address] [place], [address] Cholesterol in VLDL [Mass/Vol] 23 mg/dL Normal 5-40 [facility] Comment on above: Performed By: #### L 500.4050, L500.4100, L100.0100, L503.0106, L506.1001, L501.9520 #### [facility] [address] [place], [address] Triglyceride [Mass/Vol] 114 mg/dL Normal [facility] Comment on above: Result Comment: The drugs N-Acetylcysteine and Metamizole may falsely depress this assay. Normal range: <150 mg/dL Borderline High: 150-199 mg/dL High: 200-499 mg/dL Very High: >500 mg/dL Performed By: #### L 500.4050, L500.4100, L100.0100, L503.0106, L506.1001, L501.9520 #### [facility] [address] [place], [place], [address] Lymphocytes Auto (Unsp spec) [#/Vol]Ordered By: Sherley Malik on 05-08-2024 Lymphocytes (Bld) [#/Vol] 3.26 10*3/uL 0.83-4.51 [facility] Lymphocytes/100 WBC Auto (Un sp spec)Ordered By: Sherley Malik on 05-08-2024 Lymphocytes/100 WBC (Bld) 40.0 % 19-41 [facility] MCV (mean corpuscular volume ) determinationOrdered By: Sherley Malik on 05-08-2024 MCV (RBC) [Entitic vol] 94.2 fL 81-99 [facility] Mean corpuscular hemoglobin (MCH) determinationOrdered By: Sherley Malik on 05-08-2024 MCH (RBC) [Entitic mass] 32.0 pg 27.0-32.0 [facility] Mean corpuscular hemoglobin concentration (MCHC) determinationOrdered By: Sherley Malik on 05-08-2024 MCHC (RBC) [Mass/Vol] 33.9 g/dL 32-36 [facility] Mean platelet volume determi nationOrdered By: Sherley Malik on 05-08-2024 Platelet mean volume (Bld) [Entitic vol] 10.6 fL 6.2-12.0 [facility] Monocyte percentageOrdered B y: Sherley Malik on 05-08-2024 Monocytes/100 WBC (Bld) 7.7 % 0-10 [facility] Neutrophil percentageOrdered By: Sherley Malik on 05-08-2024 Neutrophils/100 WBC (Bld) 48.7 % 47-70 [facility] Nucleated red blood cell per centageOrdered By: Sherley Malik on 05-08-2024 Nucleated RBC/100 WBC (Bld) [Ratio] 0 % 0-5 [facility] Platelet countOrdered By: Kosta Malik on 05-08-2024 Platelets (Bld) [#/Vol] 207 10*3/uL 150-450 [facility] Potassium (Unsp spec) [Mass/ Vol]Ordered By: Sherley Malik on 05-08-2024 Potassium [Moles/Vol] 3.8 mmol/L 3.3-5.1 [facility] RBC Auto (Bld) [#/Vol]Ordere d By: Sherley Malik on 05-08-2024 RBC (Bld) [#/Vol] 3.63 10*6/uL Low 4.2-5.4 [facility] Screening total cholesterol/ high density lipoprotein (HDL) cholesterol ratioOrdered By: Sherley Malik on 05-08-2024 Cholesterol.total/Subha sterol in HDL [Mass ratio] 2.37 {ratio} [facility] Serum creatinine measurement (mass/volume)Ordered By: Sherley Malik on 05-08-2024 Creatinine [Mass/Vol] 1.79 mg/dL High 0.70-1.20 [facility] Serum globulin measurementOr dered By: Sherley Malik on 05-08-2024 Globulin (S) [Mass/Vol] 3.0 g/dL 2.2-4.2 [facility] Serum glucose measurement (m ass/volume)Ordered By: Sherley Malik on 05-08-2024 Glucose [Mass/Vol] 104 mg/dL High 70-[address] [facility] Serum or plasma alanine deal otransferase (ALT) measurementOrdered By: Sherley Malik on 05-08-2024 ALT [Catalytic activity/Vol] 20 U/L <35 [facility] Serum or plasma albumin alex urement (mass/volume)Ordered By: Sherley Malik on 05-08-2024 Albumin [Mass/Vol] 4.2 g/dL 3.4-4.[address] [facility] Serum or plasma albumin/glob ulin mass ratioOrdered By: Sherley Malik on 05-08-2024 Albumin/Globulin [Mass ratio] 1.4 {ratio} 0.9-2.4 [facility] Serum or plasma alkaline mason sphatase measurementOrdered By: Sherley Malik on 05-08-2024 ALP [Catalytic activity/Vol] 74 U/L 35-104 [facility] Serum or plasma calcium alex urement (mass/volume)Ordered By: Sherley Malik on 05-08-2024 Calcium [Mass/Vol] 9.9 mg/dL 7.6-11.[address] [facility] Serum or plasma cholesterol in HDL measurement (mass/volume)Ordered By: Sherley Malik on 05-08-2024 Cholesterol in HDL [Mass/Vol] 65 mg/dL >40 [facility] Comment on above: National Cholesterol Education Program (NCEP) guidelines:<40 mg/dL: Low HDL-cholesterol (major risk factor for CHD)>= 60 mg/dL: High HDL-cholesterol (negative risk factor for CHD)HDL-cholesterol is affected by a number of factors, e.g. smoking, exercise, hormones, sex and age. Serum or plasma cholesterol measurement (mass/volume)Ordered By: Sherley Malik on 05-08-2024 Cholesterol [Mass/Vol] 153 mg/dL <201 [facility] Comment on above: Cholesterol level, D esirable <200 mg/dLBorderline high cholesterol 200-239 mg/dLHigh cholesterol >=240 mg/dLRecommendations of the NCEP Adult Treatment Panel for the following risk-cutoff thresholds for the [place] population. Serum or plasma urea nitroge n measurement (mass/volume)Ordered By: Sherley Malik on 05-08-2024 Urea nitrogen [Mass/Vol] 30 mg/dL High 4-19 [facility] Sodium levelOrdered By: Lex Malik on 05-08-2024 Sodium [Moles/Vol] 139 mmol/L 133-[address] [facility] TSH DL <= 0.005 mIU/L QnOrde red By: Sherley Malik on 05-08-2024 Thyroid Stimulating Hormone (TSH) 1.880 uIU/mL 0.300-4.200 [facility] Thyroid Stim Hormone (TSH)on 05-08-2024 TSH 1.880 uIU/mL Normal 0.300-4.200 [facility] Comment on above: Performed By: #### L 500.4050, L500.4100, L100.0100, L503.0106, L506.1001, L501.9520 #### [facility] [address] [place], [address] Total proteinOrdered By: Matt Malik on 05-08-2024 Protein [Mass/Vol] 7.2 g/dL 5.9-8.[address] [facility] Triglycerides measurementOrd ered By: Sherley Malik on 05-08-2024 Triglyceride [Mass/Vol] 114 mg/dL <199 [facility] Comment on above: The drugs N-Acetylcy steine and Metamizole may falsely depress this assay. Normal range: <150 mg/dLBorderline High: 150-199 mg/dLHigh: 200-499 mg/dLVery High: >500 mg/dL Vitamin B12 ser/plasOrdered By: Sherley Malik on 05-08-2024 Cobalamin (Vitamin B12) [Mass/Vol] 294 pg/mL 180-914 [facility] Vitamin D, 25-hydroxyOrdered By: Sherley Malik on 05-08-2024 Vitamin D 25-Hydroxy 70.4 ng/mL 30-100 [facility] Comment on above: Vitamin D StatusDefi ciency: <20 ng/mL (50nmol/L)Insufficiency: 20-30 ng/mL (50-75 nmol/L)Sufficiency: 30-100 ng/mL (75-250 nmol/L)Toxicity: >100 ng/mL (>250 nmol/L) White blood cell (WBC) count Ordered By: Sherley Malik on 05-08-2024 WBC (Bld) [#/Vol] 8.2 10*3/uL 4.4-11.[address] [facility] Internal Medicine Office Vis iton 05-05-2024 Internal Medicine Office Visit [facility] [address] [place], [place] [address] OFFICE VISIT Date of Service: 05/06/24 MR#: [id number] Acct: [id number] Name: MALLORY PEREZ Rep #: [id number] : 1940 Provider: Dr. Sherley denton MD Age/Sex: 83/F Location: [facility] Status: Signed Intake Vital Signs 02/22/24 09:08 05/06/24 10:50 05/06/24 16:24 Height 5 ft 4 in 5 ft 4 in Weight: 121 lb 4 oz BMI 20.8 BP 148/88 H 124/72 H Blood Pressure Location Lt brachial Position Sitting Respiration 16 Pulse 72 Pulse Source Monitor Temp 96.8 F L Temp Source Temporal Pulse Oximetry (%) 96 Oxygen Delivery Method room air Intake Visit Reasons: 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 PT Chief Complaint: establishing care Check And Transfer Beader Required: No Accompanied by: Self Is patient in pain?: No Allergies No Known Allergies Allergy (Verified 05/06/24 10:47) Medications ???Medication ???Instructions ???Recorded ???Confirmed ???Type Bifidobacterium infantis 4 mg 4 mg PO QDAY 04/17/17 05/06/24 His tory capsule (Align (B.infantis)) aspirin 81 mg tablet,delayed 81 mg PO QDAY 04/17/17 05/06/24 Hi story release cholecalciferol (vitamin D3) 50 2,000 unit PO DAILY 11/30/1705/06 History mcg (2,000 unit) capsule acetaminophen 325 mg tablet 325 mg PO ONCE PRN 12/18/20 History nitroglycerin 0.4 mg sublingual 0.4 mg sublingual Q5-15M PRN chest 02/20/23 05/06/24 Rx tablet pain #25 tabs hydrochlorothiazide 25 mg tablet 25 mg PO DAILY #90 TABLETS 4 05/06/24 Rx levothyroxine 50 mcg tablet See Rx Instructions .Route 4 05/06/24 Rx (Synthroid) .COMPLEX #90 TABLETS rosuvastatin 20 mg tablet 20 mg PO DAILY #90 tabs 12/07/23 0 05/06/24 Rx atenolol 50 mg tablet 50 mg PO QDAY ONCE DAILY #90 tabs 02/28/24 05/06/24 Rx losartan 100 mg tablet 100 mg PO DAILY #90 tabs 04/10/24 05/06/24 Rx Have you fallen in the past year?: No PFSH Medical History (Updated 05/06/24 @ 11:[address] Sherley Malik MD) Uterine cancer Sciatica Scoliosis Osteoporosis Essential hypertension Pure hypercholesterolemia Hiatal hernia Family history of hypertension Atherosclerotic heart disease of [place] coronary artery without angina pectoris Premature ventricular contraction Surgical History History of cholecystectomy History of total hysterectomy History of tonsillectomy Postsurgical percutaneous transluminal coronary angioplasty (PTCA) status ( 10/31/04) Family History (Updated 05/06/24 @ 11:[address] Sherley Malik MD) Father CHF (congestive heart failure) Mother CAD (coronary artery disease) Uterine cancer Brother CAD (coronary artery disease) Hypertension Sister Cancer uterine Social History (Updated 05/06/24 @ 11:[address] 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 1. Little interest or pleasure in doing things: not at all 2. Feeling down, depressed, or hopeless: not at all 3. Trouble falling or staying asleep, or sleeping too much: not at all 4. Feeling tired or having little energy: not at all 5. Poor appetite or overeating: not at all 6. Feeling bad about yourself - or that you are a failure or have let yourself and your family down: not at all 7. Trouble concentrating on things, such as reading the newspaper or watching television: not at all 8. Moving or speaking so slowly that other people could have noticed? - Or the opposite - being so fidgety or restless that you have been moving around a lot more than usual: not at all 9. Thoughts that you would be better off or of hurting yourself in some way: not at all Total score: 0 Source: Developed by Drs. Cleveland Salinas, Sierra Levin, Andres Butt and colleagues, with an educational alexsandra from [employer]. HPI HPI Chief Complaint: establishing care Details: MALLORY PEREZ, is a 83 F who presents to the office today to establish care. She was seeing Dr. Suero and last saw them at least 4-5 years ago. She is due for some routine blood work. She is not due for any further screening. She isn't due for any immunizations. She doesn't smoke and doesn't need any refills. She reports she is eating healthy and staying active, with walking every morning. She likes salads, and doesn't eat a lot of junk. The patient has been on blood pressure medications for at least 30 years. She does check her blood pressure at [facility] (more content not included)... Normal [facility] Cardiology Visit Reporton Cardiology Visit Report [facility] [address] [place] [address] OFFICE VISIT Date of Service: 02/22/24 MR#: [id number] Acct: [id number] Name: MALLORY PEREZ Rep #: [id number] : 1940 Provider: Dr. Teto Sharma MD Age/Sex: 83/F Location: [facility] Status: Signed HPI HPI History of Present Illness Details: This is an 82 year old white female who presents today for outpatient cardiovascular follow-up with a history of underlying CAD status post remote PCI to the LAD distribution, hyperlipidemia, and hypertension. She denies chest, arm, jaw, or neck discomfort. She denies palpitations. She denies bilateral lower extremity edema. She denies claudication. She states shortness of breath with activity. This is intermittent and not new or worsening. She denies it with regular walks. She denies shortness of breath at rest, orthopnea, or PND. She denies chronic cough. She denies significant, sudden weight gain. She denies lightheadedness, dizziness, near-syncope, or syncope. She denies blood in urine, blood in stool, or epistaxis. He denies fever with chills. She denies myalgia. She denies fatigue. Her exercise level has remained stable. She states home blood pressure is 110s-120s systolic. Intake Vital Signs 02/20/23 13:10 02/22/24 09:08 Height 5 ft 4 in 5 ft 4 in Weight: 115 lb BMI 19.7 BP 146/70 H Blood Pressure Location Lt brachial Position Sitting Respiration 16 Pulse 66 Pulse Source NIBP Intake Visit Reasons: 1 Y FU Check And Transfer Beader Required: No Accompanied by: Self Is patient in pain?: No Allergies No Known Allergies Allergy (Verified 02/22/24 15:07) Medications ???Medication ???Instructions ???Recorded ???Confirmed ???Type Bifidobacterium infantis 4 mg 4 mg PO QDAY 04/17/17 02/22/24 History capsule (Align (B.infantis)) aspirin 81 mg tablet,delayed 81 mg PO QDAY 04/17/17 02/22/24 History release cholecalciferol (vitamin D3) 50 2,000 unit PO DAILY 11/30/17 02/22/24 History mcg (2,000 unit) capsule acetaminophen 325 mg tablet 325 mg PO ONCE PRN 12/18/20 02/22/24 History nitroglycerin 0.4 mg sublingual 0.4 mg sublingual Q5-15M PRN chest 02/20/23 02/22/24 Rx tablet pain #25 tabs hydrochlorothiazide 25 mg tablet 25 mg PO DAILY #90 TABLETS 06/13/23 02/22/24 Rx levothyroxine 50 mcg tablet See Rx Instructions .Route 07/04/23 02/22/24 Rx (Synthroid) .COMPLEX #90 TABLETS rosuvastatin 20 mg tablet 20 mg PO DAILY #90 tabs 12/07/23 02/22/24 Rx atenolol 50 mg tablet 50 mg PO ONCE #180 tabs 02/22/24 02/22/24 Rx losartan 100 mg tablet 100 mg PO DAILY #90 tabs 02/22/24 02/22/24 Rx Ejection fraction %: 83 Have you fallen in the past year?: No PFSH Medical History Scoliosis Osteoporosis Essential hypertension Pure hypercholesterolemia Hiatal hernia Family history of hypertension Atherosclerotic heart disease of [place] coronary artery without angina pectoris Premature ventricular contraction Surgical History History of cholecystectomy History of total hysterectomy History of tonsillectomy Postsurgical percutaneous transluminal coronary angioplasty (PTCA) status ( 10/31/04) Family History Father CHF (congestive heart failure) Mother CAD (coronary artery disease) Brother CAD (coronary artery disease) Hypertension Social History Smoking Status: Never smoker alcohol intake: never substance use type: does not use caffeine: Yes Type: tea ROS Const Const: Negative for fatigue, weakness, headache(s) or weight gain ENT ENT: Negative for headache(s), dizziness, Nosebleed/epistaxis or balance problems Cardio Chest Pain: No Palpitations: No Edema: None Muscle aches with walking: None Resp Respiratory: Positive for SOB with activity (w/ over exertion); Negative for SOB at rest or SOB orthopnea SOB lying down GI GI: Negative nausea, vomiting or heartburn Musc Musc: Negative for muscle aches/ myalgia, muscle weakness, joint pain or balance problems Neuro Neuro: Negative for dizziness, lightheadedness, near syncope, syncope, headache(s) or weakness Endo Endo: Negative for fatigue Cardiology Exam Const Appearance: cooperative, healthy appearing, comfortable and no acute distress Nutritional Appearance: average body habitus and well nourished Orientation: alert, awake and oriented x3 Head Head: normal to inspection Ears: hearing grossly normal bilaterally Nose: external nose normal Face and Sinus: face symmetric Mouth: moist mucous membranes Eyes General: appearance normal, both eyes and all related structures Eyelid (more content not included)... Normal [facility] STREP A MOLECULAR (POC)on Procedural Control Valid [facility] Strep A (POCT) Negative Negative [facility] Basophil percentageon 2021 Bilirubin [Mass/Vol] 0.50 mg/dL 0.20-1.00 [facility] Work Phone: Comment on above: For patients on eltr ombopag therapy, use of Dimension [place] TBIL is not recommended. Cholesterol [Mass/Vol] 140 mg/dL <200 [facility] Work Phone: Comment on above: <200 mg/dL Desirable 200-240 mg/dL Borderline >240 mg/dL High Risk Protein [Mass/Vol] 7.2 g/dL 6.4-8.[address] [facility] Work Phone: Triglyceride [Mass/Vol] 88 mg/dL <199 [facility] Work Phone: Comment on above: The drugs N-Acetylcy steine and Metamizole may falsely depress this assay.Serum Triglycerides Reference Interval Normal <150 mg/dL Borderline high 150 - 199 mg/dL High 200 - 499 mg/dL Very High > or = 500 mg/dL Direct bilirubinon 2 Bilirubin.direct [Mass/Vol] 0.15 mg/dL 0.00-0.30 [facility] Work Phone: Laboratory - Chemistry and C hemistry - challengeon 11-23-2021 ALP [Catalytic activity/Vol] 77 U/L 45-117 [facility] Work Phone: ALT [Catalytic activity/Vol] 26 U/L 13-56 [facility] Work Phone: Globulin (S) [Mass/Vol] 3.7 g/dL 2.2-4.2 [facility] Work Phone: Serum or plasma albumin alex urement (mass/volume)on 11-23-2021 Albumin [Mass/Vol] 3.5 g/dL 3.2-5.[address] [facility] Work Phone: Serum or plasma cholesterol in HDL measurement (mass/volume)on 11-23-2021 Cholesterol in HDL [Mass/Vol] 61 mg/dL >40 [facility] Work Phone: Comment on above: The drugs N-Acetylcy steine and Metamizole may falsely depress this assay. Reference Range HDL <40 mg/dL Low HDL Cholesterol HDL >or= 60 mg/dL High HDL Cholesterol Serum or plasma cholesterol in VLDL measurement (mass/volume)on 11-23-2021 Cholesterol in VLDL [Mass/Vol] 18 mg/dL 5-40 [facility] Work Phone: Serum or plasma low density lipoprotein (LDL) cholesterol measurement (mass/volume)on 11-23-2021 Cholesterol in LDL [Mass/Vol] 61 mg/dL 0-130 [facility] Work Phone: Thin prep Papanicolaou smear with manual screeningon 11-23-2021 Thin prep Papanicolaou smear with manual screening 21 U/L 15-37 [facility] Work Phone: Basophil percentageon 2021 Bilirubin [Mass/Vol] 0.60 mg/dL 0.20-1.00 [facility] Work Phone: Comment on above: For patients on eltr ombopag therapy, use of Dim[place] TBIL is not recommended. Cholesterol [Mass/Vol] 148 mg/dL <200 [facility] Work Phone: Comment on above: <200 mg/dL Desirable 200-240 mg/dL Borderline >240 mg/dL High Risk Protein [Mass/Vol] 7.0 g/dL 6.4-8.[address] [facility] Work Phone: Triglyceride [Mass/Vol] 103 mg/dL [facility] Work Phone: Comment on above: The drugs N-Acetylcy steine and Metamizole may falsely depress this assay.Serum Triglycerides Reference Interval Normal <150 mg/dL Borderline high 150 - 199 mg/dL High 200 - 499 mg/dL Very High > or = 500 mg/dL Direct bilirubinon Bilirubin.direct [Mass/Vol] 0.14 mg/dL 0.00-0.30 [facility] Work Phone: Laboratory - Chemistry and C hemistry - challengeon 05-31-2021 ALP [Catalytic activity/Vol] 73 U/L 45-117 [facility] Work Phone: ALT [Catalytic activity/Vol] 28 U/L 13-56 [facility] Work Phone: Globulin (S) [Mass/Vol] 3.5 g/dL 2.2-4.2 [facility] Work Phone: Serum or plasma albumin alex urement (mass/volume)on 05-31-2021 Albumin [Mass/Vol] 3.5 g/dL 3.2-5.[address] [facility] Work Phone: Serum or plasma cholesterol in HDL measurement (mass/volume)on 05-31-2021 Cholesterol in HDL [Mass/Vol] 57 mg/dL [facility] Work Phone: Comment on above: The drugs N-Acetylcy steine and Metamizole may falsely depress this assay. Reference Range HDL <40 mg/dL Low HDL Cholesterol HDL >or= 60 mg/dL High HDL Cholesterol Serum or plasma cholesterol in VLDL measurement (mass/volume)on 05-31-2021 Cholesterol in VLDL [Mass/Vol] 21 mg/dL 5-40 [facility] Work Phone: Serum or plasma low density lipoprotein (LDL) cholesterol measurement (mass/volume)on 05-31-2021 Cholesterol in LDL [Mass/Vol] 70 mg/dL 0-130 [facility] Work Phone: Thin prep Papanicolaou smear with manual screeningon 05-31-2021 Thin prep Papanicolaou smear with manual screening 24 U/L 15-37 [facility] Work Phone: Office Visit: [facility] 10-08-19 17 Documentation of current medications (procedure) Done Invalid Interpretation Code [employer] Work Phone: [phone] Fall risk assessment No Invalid Interpretation Code [employer] Work Phone: [phone] Lab Report: Lipid Profileon 09-23-2016 Cholesterol 128 mg/dL Invalid Interpretation Code 200 [employer] Work Phone: [phone] HDL Cholesterol 59 mg/dL Invalid Interpretation Code [employer] Work Phone: [phone] LDL Cholesterol 47 mg/dL Invalid Interpretation Code 0-130 [employer] Work Phone: [phone] Triglyceride 112 mg/dL Invalid Interpretation Code [employer] Phone: [phone] very low density lipoproteins 22 mg/dL Invalid Interpretation Code 5-40 [employer] Work Phone: [phone] Lab Report: Liver Profileon 09-23-2016 Alanine aminotransferase (ALT) 26 U/L Invalid Interpretation Code 12-78 [employer] Work Phone: [phone] Albumin 3.8 g/dL Invalid Interpretation Code 3.4-5.0 [employer] Phone: [phone] Alkaline phosphatase (ALP) 79 U/L Invalid Interpretation Code 45-117 [employer] Work Phone: [phone] ALP enzyme act/vol (Bld) 79 U/L 45-117 [employer] Work Phone: [phone] Aspartate aminotransferase (AST) 27 U/L Invalid Interpretation Code 15-37 [employer] Work Phone: [phone] Bilirubin (direct) 0.15 mg/dL Invalid Interpretation Code 0.00-0.30 [employer] Work Phone: [phone] Bilirubin (total) 0.70 mg/dL Invalid Interpretation Code 0.20-1.00 [employer] Phone: [phone] Globulin 3.3 g/dL Invalid Interpretation Code 2.3-3.5 [employer] Work Phone: [phone] Globulin mass conc (S) 3.3 g/dL 2.3-3.5 [facility] Work Phone: Protein 7.1 g/dL Invalid Interpretation Code 6.4-8.2 [facility] Work Phone: CNOVon 09-13-2016 CNOV Office Visit (AGGYNONPOB) MALLORY PEREZ ([id number]) 1940 FDate Time Provider Department09/13/16 1:00 PM YASH JAIN During your visit today, we recorded the following information about you: Temperature Pulse Respiration Blood pressure 98 degrees 62/minute 16/minute 142/80 Weight Height 56.2 kg 1.613 Clark Jain MD 09/13/2016 1:29 PM SignedPROBLEM: Stage IA FIGO 1 endometrial cancerCurrent Outpatient Prescriptions:KLOR-CON 10 10 mEq tablet Disp: Rfl:vit D3-folic adwa-Z2-Q2-B12 2,000-800-0.32 unit-mcg-mg tab Take by mouth.Disp: Rfl:atenolol (TENORMIN) 50 mg tablet Disp: Rfl:ibuprofen (ADVIL) 200 mg tablet Take 200 mg by mouth as needed. Disp: Rfl:famotidine (PEPCID) 40 mg tablet Take 1 tablet by mouth daily at bedtime. Disp:30 tablet Rfl: 3rosuvastatin (CRESTOR) 20 mg tablet Take 20 mg by mouth once daily. Disp: Rfl:levothyroxine (SYNTHROID) 50 mcg tablet Take 50 mcg by mouth once daily. Disp:Rfl:Valsartan-Hydr ochlorothiazide (DIOVAN HCT) 160-25 mg per tablet Take 1 tabletby mouth once daily. Disp: Rfl:Aspirin 81 mg tab Take 81 mg by mouth. Disp: Rfl:esomeprazole (NEXIUM) 40 mg capsule Take 40 mg by mouth as needed. Disp: Rfl:Bifidobacterium Infantis (ALIGN) 4 mg cap Take by mouth once daily. Disp:Rfl:famotidine (PEPCID) 40 mg tablet Take 1 tablet by mouth once daily. Disp: 90tablet Rfl: 3ATENOLOL ORAL Take 50 mg by mouth twice daily. Disp: Rfl:POTASSIUM CHLORIDE (KLOR-CON 10 ORAL) Take by mouth twice daily. Take 3tablets Disp: Rfl:nitroglycerin sublingual 0.4 mg SL tablet Dissolve 0.4 mg under the tongueevery 5 minutes as needed. Disp: Rfl:No current facility-administered medications for this visit.SUBJECTIVE:Mallory reports that she feels well. No vaginal bleeding or discharge. Noshortness of breath, cough, or chest pain. No abdominal pain, nausea,vomiting, diarrhea, or constipation. No dysuria, gross hematuria, urinaryfrequency, urinary urgency, or incontinence. Her ECOG performance status iszero (fully active, able to carry on all pre-disease performance withoutrestriction).BP 142/80 Pulse 62 Temp (Src) 98 (Oral) Resp 16 Ht 5' 3.5ANDquot; (1.61m) Wt 123 lb 12.8 oz (56.2kg) BMI 21.58 kg/(m2).PHYSICAL EXAM:GEN: ComfortableHEENT: MMM, normocephalicNECK: No cervical or supraclavicular adenopathy. No thyromegalyCARD: RRRPULM: Clear bilatABD: Soft, nontender, not distended, no organomegalyGROIN: No inguinal adenopathyPELVIC: The external genitalia are normal. Vaginal arreguin without lesion.Rectovaginal negative for mass.EXT: No lower ext edema or tendnerness.ASSESSMENT: 75 yo stage IA FIGO 1 uterine cancer, MSI nlLimited staging ([facility]) 08/2011FH : uterine cancer mother, sister, MGMPLAN:No clinical evidence of disease recurrenceFH uterine cancer, genetic testing recommended, pt declinedMammo 12/2014, follow up scheduled for Oct 2016Colonoscopy 07/2015 due at 3yBMD 09/2015Continue surveillanceRTC 1yBRITANY Wooefjulia Provider: SELF [200]Allergies As of Date: 09/13/2016(No Known Allergies)Date Reviewed: 09/13/2016Reviewed by: Emerald ([facility]) [place] - Fully AssessedReason for Visit: Follow Up [171]Visit Diagnosis:Endometrial cancer (HCC) [C54.1]Prescriptions as of 09/13/2016 Sig: KLOR-CON 10 MEQ TABLET,EXTEND* VIT D3-FOLIC ACID-VIT B2-B6-B* Take by mouth. ATENOLOL 50 MG TABLET IBUPROFEN 200 MG TABLET Take 200 mg by mouth as neede* FAMOTIDINE 40 MG TABLET Take 1 tablet by mouth daily * ROSUVASTATIN 20 MG TABLET Take 20 mg by mouth once vera* LEVOTHYROXINE 50 MCG TABLET Take 50 mcg by mouth once somani* VALSARTAN 160 MG-HYDROCHLOROT* Take 1 tablet by mouth once d* ASPIRIN 81 MG TABLET Take 81 mg by mouth. ESOMEPRAZOLE MAGNESIUM 40 MG * Take 40 mg by mouth as needed. BIFIDOBACTERIUM INFANTIS 4 MG* Take by mouth once daily. FAMOTIDINE 40 MG TABLET Take 1 tablet by mouth once d* ATENOLOL ORAL Take 50 mg by mouth twice osmani* KLOR-CON 10 ORAL Take by mouth twice daily. T* NITROGLYCERIN 0.4 MG SUBLINGU* Dissolve 0.4 mg under the ton*Medication notes this encounter KLOR-CON 10 ORAL >> Summer ([facility]) [place] 09/13/2016 1:13 PM >> FRANKLYN DOBBINS [facility] MonSep 13, 2016 1:13 PM Duplicate [facility] ([facility]) [place] NITROGLYCERIN 0.4 MG SUBLINGUAL TABLET >> [facility] ([facility]) [place] 09/13/2016 1:12 PM >> FRANKLYN DOBBINS [facility] MonSep 13, 2016 1:12 PM Duplicate [facility] ([facility]) [place]lynProblem List As Of Date 09/13/2016 Noted Resolved Gallbladder sludge [K82.8] INVALID FOR* Bloating [R14.0] INVALID FOR* Belching [R14.2] INVALID FOR* Chronic cholecystitis without calculus [K81.1] INVALID FOR* Uterine cancer (HCC) [C55] INVALID FOR*Disposition: Return in about 1 year (around 09/13/2017).Follow-up and Disposition History RecordedEncounter Number: [id number] Status:Closed by YASH JAIN MD on 09/13/16 [facility] PROGRESSon 09-13-2016 PROGRESS HNO ID: [id number]: Yash Holguin: (none)Author Type: PhysicianType: Progress NotesFiled: 09/13/2016 1:29 PMNote Text:PROBLEM: Stage IA FIGO 1 endometrial cancerCurrent Outpatient Prescriptions:KLOR-CON 10 10 mEq tablet Disp: Rfl:vit D3-folic oulo-B5-E6-B12 2,000-800-0.32 unit-mcg-mg tab Take by mouth.Disp: Rfl:atenolol (TENORMIN) 50 mg tablet Disp: Rfl:ibuprofen (ADVIL) 200 mg tablet Take 200 mg by mouth as needed. Disp:Rfl:famotidine (PEPCID) 40 mg tablet Take 1 tablet by mouth daily at bedtime.Disp: 30 tablet Rfl: 3rosuvastatin (CRESTOR) 20 mg tablet Take 20 mg by mouth once daily. Disp:Rfl:levothyroxine (SYNTHROID) 50 mcg tablet Take 50 mcg by mouth once daily.Disp: Rfl:Valsartan-Hydrochlo rothiazide (DIOVAN HCT) 160-25 mg per tablet Take 1tablet by mouth once daily. Disp: Rfl:Aspirin 81 mg tab Take 81 mg by mouth. Disp: Rfl:esomeprazole (NEXIUM) 40 mg capsule Take 40 mg by mouth as needed. Disp:Rfl:Bifidobacteriu m Infantis (ALIGN) 4 mg cap Take by mouth once daily. Disp: Rfl:famotidine (PEPCID) 40 mg tablet Take 1 tablet by mouth once daily. Disp:90 tablet Rfl: 3ATENOLOL ORAL Take 50 mg by mouth twice daily. Disp: Rfl:POTASSIUM CHLORIDE (KLOR-CON 10 ORAL) Take by mouth twice daily. Take 3tablets Disp: Rfl:nitroglycerin sublingual 0.4 mg SL tablet Dissolve 0.4 mg under the tongueevery 5 minutes as needed. Disp: Rfl:No current facility-administered medications for this visit.SUBJECTIVE:Mallory reports that she feels well. No vaginal bleeding or discharge. Noshortness of breath, cough, or chest pain. No abdominal pain, nausea,vomiting, diarrhea, or constipation. No dysuria, gross hematuria, urinaryfrequency, urinary urgency, or incontinence. Her ECOG performance statusis zero (fully active, able to carry on all pre-disease performancewithout restriction).BP 142/80 Pulse 62 Temp (Src) 98 (Oral) Resp 16 Ht 5' 3.5 (1.61m) Wt 123 lb 12.8 oz (56.2kg) BMI 21.58 kg/(m2).PHYSICAL EXAM:GEN: ComfortableHEENT: MMM, normocephalicNECK: No cervical or supraclavicular adenopathy. No thyromegalyCARD: RRRPULM: Clear bilatABD: Soft, nontender, not distended, no organomegalyGROIN: No inguinal adenopathyPELVIC: The external genitalia are normal. Vaginal arreguin without lesion.Rectovaginal negative for mass.EXT: No lower ext edema or tendnerness.ASSESSMENT: 75 yo stage IA FIGO 1 uterine cancer, MSI nlLimited staging ([facility]) 08/2011FH : uterine cancer mother, sister, MGMPLAN:No clinical evidence of disease recurrenceFH uterine cancer, genetic testing recommended, pt declinedMammo 12/2014, follow up scheduled for Oct 2016Colonoscopy 07/2015 due at 3yBMD 09/2015Continue surveillanceRTC 1Elba Jain MD [facility] Lab Report: T4 Total, Thyrox inon 04-01-2016 Thyroxine (T4) 12.0 ug/dL Invalid Interpretation Code 4.8-13.9 [employer] Work Phone: Lab Report: Thyroid Stim Hor zaria (TSH)on 04-01-2016 Thyroid stimulating hormone (TSH) 0.75 u[iU]/mL Invalid Interpretation Code 0.358-3.74 [employer] Work Phone: Office Visit: [facility] 04-01-19 17 Documentation of current medications (procedure) Done Invalid Interpretation Code [employer] Work Phone: Protein mass conc Done [employer] Work Phone: Clinical Lists Update: 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 03-30-2016 Left ventricular Ejection fraction 65 % Invalid Interpretation Code [employer] Work Phone: Office Visit: [facility] 04-16-19 16 Fall risk assessment Invalid Interpretation Code [employer] Work Phone: Tobacco smoking status NHIS Never smoker [employer] Work Phone: Tobacco use CPHS Never smoker Invalid Interpretation Code [employer] Work Phone: Replaced Document: Elena MARTINEZ Observationson 04-16-2015 EKG QRS axis 55 deg [employer] Work Phone: [phone] electrocardiogram interpretation Sinus Rhythm WITHIN NORMAL LIMITS Invalid Interpretation Code [employer] Work Phone: [phone] GE use only - for [employer] import when terms are not otherwise specified 381 ms Invalid Interpretation Code [employer] Work Phone: [phone] Interpretation Sinus Rhythm WITHIN NORMAL LIMITS [employer] Work Phone: [phone] P [place] 48 deg [facility] Work Phone: [phone] P wave axis, electrocardiogram 48 deg Invalid Interpretation Code [employer] Work Phone: [phone] NH Interval 180 ms [employer] Work Phone: [phone] NH interval, electrocardiogram 180 ms Invalid Interpretation Code [employer] Work Phone: [phone] Pulse (Heart Rate) 61 /min Invalid Interpretation Code [employer] Work Phone: [phone] QRS axis, electrocardiogram 55 deg Invalid Interpretation Code [employer] Work Phone: [phone] QRS Duration 82 ms [employer] Work Phone: [phone] QRS duration, electrocardiogram 82 ms Invalid Interpretation Code [employer] Work Phone: [phone] QT Interval new path ms [employer] Work Phone: [phone] QT interval, electrocardiogram new path ms Invalid Interpretation Code [facility] Work Phone: [phone] QTc Edsir 381 ms [facility] Work Phone: [phone] T [place] 50 deg [facility] Work Phone: T wave axis, electrocardiogram 50 deg Invalid Interpretation Code [facility] Work Phone: [phone] Clinical Lists Update: 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 05-19-2014 aPTT 27 s Invalid Interpretation Code [facility] Work Phone: [phone] BUN/Creatinine Ratio 15 mg/mg Invalid Interpretation Code [facility] Work Phone: [phone] Calcium 10.3 mg/dL Invalid Interpretation Code [facility] Work Phone: [phone] Chloride 93 mmol/L Low [facility] Work Phone: [phone] CO2 24 mmol/L Invalid Interpretation Code [facility] Work Phone: [phone] CO2 ppres (BldV) 24 mmol/L [facility] Work Phone: [phone] Coagulation tissue factor induced in platelet poor plasma 10.7 s Invalid Interpretation Code [facility] Work Phone: [phone] Creatinine 1.15 mg/dL High [facility] Work Phone: [phone] Erythrocyte distribution width Ratio (RBC) 13.1 % [facility] Work Phone: [phone] Erythrocytes (RBC) 3.91 10*6/uL Invalid Interpretation Code [facility] Work Phone: [phone] Globulin 2.4 g/dL Invalid Interpretation Code [facility] Work Phone: [phone] Globulin mass conc (S) 2.4 g/dL [facility] Work Phone: [phone] Glucose 92 mg/dL Invalid Interpretation Code [facility] Work Phone: [phone] Glucose mass conc 92 mg/dL [facility] Work Phone: [phone] Hematocrit (HCT) 36.1 % Invalid Interpretation Code [facility] Work Phone: [phone] Hematocrit Volume Fraction (Bld) 36.1 % [facility] Work Phone: [phone] Hemoglobin (HGB) 12.3 g/dL Invalid Interpretation Code [facility] Work Phone: [phone] INR Coag RelTime (PPP) 1.0 {INR} [facility] Work Phone: [phone] INR in blood by coagulation 1.0 {INR} Invalid Interpretation Code [facility] Work Phone: [phone] LDL/HDL ratio, serum 1.2 Invalid Interpretation Code [facility] Work Phone: [phone] MCH 31.5 pg Invalid Interpretation Code [facility] Work Phone: [phone] MCH Entitic mass (RBC) 31.5 pg [facility] Work Phone: [phone] MCHC 34.1 g/dL Invalid Interpretation Code [facility] Work Phone: [phone] MCHC mass conc (RBC) 34.1 g/dL [facility] Work Phone: [phone] MCV 92 fL Invalid Interpretation Code [facility] Work Phone: [phone] MCV Entitic volume (RBC) 92 fL [employer] Work Phone: [phone] Platelets 261 10*3/mm3 Invalid Interpretation Code [facility] Work Phone: [phone] Platelets #/vol (Bld) 261 10*3/mm3 [employer] Work Phone: [phone] Potassium 4.5 mmol/L Invalid Interpretation Code [facility] Work Phone: [phone] RBC #/vol (Bld) 3.91 10*6/uL [employer] Work Phone: [phone] RDW-CA 13.1 % Invalid Interpretation Code [employer] Work Phone: [phone] Sodium 134 mmol/L Invalid Interpretation Code [facility] Work Phone: [phone] Urea nitrogen 17 mg/dL Invalid Interpretation Code [facility] Work Phone: [phone] WBC #/vol (Bld) 7.3 10*3/uL [employer] Work Phone: [phone] WBC (Leukocytes) 7.3 10*3/uL Invalid Interpretation Code [employer] Work Phone: [phone] Office Visit: [facility] 01-25-20 14 cardiac risk group C Invalid Interpretation Code [facility] Work Phone: [phone] General cardiovascular disease 10Y risk [#] [place].D'Agostino N/A Invalid Interpretation Code [employer] Work Phone: [phone] Office Visiton 07-31-2013 Tobacco smoking status NHIS Never Invalid Interpretation Code [facility] Work Phone: [phone] Clinical Lists Update: 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 01-21-2013 Anion gap 8 mmol/L Invalid Interpretation Code [facility] Work Phone: [phone] Anion gap molar conc 8 mmol/L [employer] Work Phone: [phone] Replaced Document: Elena Ray CG Observationson 12-03-2012 Pulse (Heart Rate) 377 ms Invalid Interpretation Code [facility] Work Phone: [phone] Lab Reporton 03-16-2011 Glucose 89 mg/dL Invalid Interpretation Code [facility] Work Phone: [phone] Glucose fasting mass conc 89 mg/dL [facility] Work Phone: [phone] MCHC 34.7 % Invalid Interpretation Code [facility] Work Phone: [phone] MCHC mass conc (RBC) 34.7 % [employer] Work Phone: [phone] Vital Signs Date Time Vital Sign Value Performing Clinician Munir neumann 11-05-2024 11:09-0400 Body height 162.56 cm No Primary Care Physician [facility] 11-05-2024 11:09-0400 Body mass index (BMI) [Ratio] 21.1 kg/m2 No Primary Care Physician [facility] 11-05-2024 11:09-0400 Body temperature 97.6 [degF] No Primary Care Physician [facility] 11-05-2024 11:09-0400 Body weight 55.79 kg No Primary Care Physician [facility] 11-05-2024 11:09-0400 Diastolic blood pressure 82 mm[Hg] No Primary Care Physician [facility] 11-05-2024 11:09-0400 Heart rate 62 /min No Primary Care Physician [facility] 11-05-2024 11:09-0400 Respiratory rate 14 /min No Primary Care Physician [facility] 11-05-2024 11:09-0400 SaO2% (BldA) [Mass fraction] 95 % No Primary Care Physician [facility] 11-05-2024 11:09-0400 Systolic blood pressure 136 mm[Hg] No Primary Care Physician [facility] 05-21-2024 08:19-0400 Body height 162.56 cm No Primary Care Physician [facility] 05-06-2024 16:24-0400 Diastolic blood pressure 72 mm[Hg] No Primary Care Physician [facility] 05-06-2024 16:24-0400 Systolic blood pressure 124 mm[Hg] No Primary Care Physician [facility] 05-06-2024 10:50-0400 Body height 162.56 cm No Primary Care Physician [facility] 05-06-2024 10:50-0400 Body mass index (BMI) [Ratio] 20.8 kg/m2 No Primary Care Physician [facility] 05-06-2024 10:50-0400 Body temperature 96.8 [degF] No Primary Care Physician [facility] 05-06-2024 10:50-0400 Body weight 54.99 kg No Primary Care Physician [facility] 05-06-2024 10:50-0400 Heart rate 72 /min No Primary Care Physician [facility] 05-06-2024 10:50-0400 Respiratory rate 16 /min No Primary Care Physician [facility] 05-06-2024 10:50-0400 SaO2% (BldA) [Mass fraction] 96 % No Primary Care Physician [facility] 02-22-2024 09:08-0500 Body mass index (BMI) [Ratio] 19.7 kg/m2 No Primary Care Physician [facility] 02-22-2024 09:08-0500 Body weight 52.16 kg No Primary Care Physician [facility] 02-22-2024 09:08-0500 Diastolic blood pressure 70 mm[Hg] No Primary Care Physician [facility] [facility] 09:08-0500 Heart rate 66 /min No Primary Care Physician [facility] 02-22-2024 09:08-0500 Respiratory rate 16 /min No Primary Care Physician [facility] 02-22-2024 09:08-0500 Systolic blood pressure 146 mm[Hg] No Primary Care Physician [facility] 06-03-2022 10:12-0400 Body temperature 99 [degF] Bertrand Sanford PA Work Phone: [facility] 06-03-2022 10:12-0400 Body weight 52.71 kg Bertrand Sanford PA Work Phone: [facility] 06-03-2022 10:12-0400 Diastolic blood pressure 82 mm[Hg] Bertrand Sanford PA Work Phone: [facility] 06-03-2022 10:12-0400 Heart rate 75 /min Krislyn Aberegg PA Work Phone: [facility] 06-03-2022 10:12-0400 Respiratory rate 21 /min Krislyn Aberegg PA Work Phone: [facility] 06-03-2022 10:12-0400 SaO2% (BldA) [Mass fraction] 97 % Krislyn Aberegg PA Work Phone: [facility] 06-03-2022 10:12-0400 Systolic blood pressure 168 mm[Hg] Krislyn Aberegg PA Work Phone: [facility] 10-07-2016 09:26-0400 BMI (Body Mass Index) 20.66 kg/m2 Mayra Guillaume [facility] Work Phone: 10-07-2016 09:26-0400 BP Diastolic 76 mm[Hg] Mayra Low [facility] Work Phone: 10-07-2016 09:26-0400 BP Systolic 148 mm[Hg] Mayra Low [facility] Work Phone: 10-07-2016 09:26-0400 Height 162.56 cm Mayra Low [facility] Work Phone: 10-07-2016 09:26-0400 Pulse (Heart Rate) 64 /min Mayra Low [facility] Work Phone: 10-07-2016 09:26-0400 Respiratory Rate 18 /min Mayra Low [facility] Work Phone: 10-07-2016 09:26-0400 Weight 54.6 kg Mayra Low [facility] Work Phone: 04-01-2016 09:54-0500 BMI (Body Mass Index) 21.59 kg/m2 Nik Mcneal NP [facility] Work Phone: 04-01-2016 09:54-0500 BP Diastolic 64 mm[Hg] Nik Mcneal NP [facility] Work Phone: 04-01-2016 09:54-0500 BP Systolic 148 mm[Hg] Nik Mcneal EXTRUSION DIE REPAIRER [facility] Work Phone: 04-01-2016 09:54-0500 BSA (Body Surface Area) 1.61 m2 Nik Mcneal EXTRUSION DIE REPAIRER [facility] Work Phone: 04-01-2016 09:54-0500 Pulse (Heart Rate) 64 /min Nik Mcneal EXTRUSION DIE REPAIRER [facility] Work Phone: 04-01-2016 09:54-0500 Respiratory Rate 18 /min Nik Mcneal EXTRUSION DIE REPAIRER [facility] Work Phone: 04-01-2016 09:54-0500 Weight 57.06 kg Nik Mcneal EXTRUSION DIE REPAIRER [facility] Work Phone: 04-16-2015 09:06-0500 Heart rate 61 /min Mayra Low [facility] Work Phone: 12-03-2012 09:44-0400 Heart rate 377 ms Mayra Low [facility] Work Phone: 04-29-2011 09:23-0400 Height 162.56 cm Nik Mcneal EXTRUSION DIE REPAIRER [facility] Work Phone: 04-29-2011 09:23-0400 Pulse (Heart Rate) 64 /min Nik Mcneal EXTRUSION DIE REPAIRER [facility] Work Phone: Encounters Encounter Date Encounter Type Care Provider Facility Start: 12-17-2024 ambulatory Jalil Demiter Facility :[facility] Start: 12-03-2024 ambulatory Sherley Savage Facility :[facility] Start: 11-20-2024 End: 11-20-2024 ambulatory Jalil Demiter Facility:[facility] Start: 11-07-2024 End: 11-07-2024 ambulatory Sherley King Facility:[facility] Start: 11-05-2024 End: 11-05-[address] Sherley Malik MD -[facility] Work Phone: Start: 11-05-2024 End: 11-05-2024 ambulatory No Primary Care Physician -[facility] Start: 05-21-2024 End: 05-21-2024 ambulatory No Primary Care Physician [facility] Work Phone: Start: 05-21-2024 End: 05-21-[address] Sherley Malik MD -Outpatient [facility] D[facility] Work Phone: Start: 05-21-2024 End: 05-21-2024 ambulatory Sherley King Facility:[facility] Start: 05-08-2024 End: 05-08-2024 ambulatory No Primary Care Physician [facility] Work Phone: Start: 05-08-2024 End: 05-08-[address] Sherley Malik MD -Laboratory Work Phone: Start: 05-08-2024 End: 05-08-2024 ambulatory Sherley Lopezlay Facility:[facility] Start: 05-06-2024 End: 05-06-[address] Sherley Malik MD -[facility] Work Phone: Start: 05-06-2024 End: 05-06-2024 ambulatory Sherley Malik Facility:[facility] Start: 02-22-2024 End: 02-22-[address] Teto Sharma MD -[facility] Work Phone: Start: 02-22-2024 End: 02-22-2024 ambulatory No Primary Care Physician Facility:[facility] Start: 06-03-2022 End: 06-03-2022 Patient encounter procedure Bertrand LUNA Work Phone: [facility] Comment on above: Sore throat (Primary Dx); URI, acute Start: 11-23-2021 End: 11-23-2021 ambulatory [facility] Work Phone: Start: 11-23-2021 End: 11-23-2021 Patient encounter procedure [facility] Start: 05-31-2021 End: 05-31-2021 Patient encounter procedure [facility] Start: 09-13-2016 End: 09-13-2016 Ambulatory [facility] Start: 10-13-2015 End: 10-14-[address] [facility] Facility:[facility] Procedures Date Procedure Procedure Detail Performing Clinician Start: 05-21-2024 Dual energy X-ray absorptiometry No Primary Care Physician Start: 06-03-2022 STREP A MOLECULAR (POC) Bertrand LUNA Work Phone: Start: 09-20-2016 End: 10-07-2016 *Hepatic Function Panel Marely perez PA-C Work Phone: Start: 09-20-2016 End: 10-07-2016 Lipid panel [AGGREGATE] Marely perez PA-C Work Phone: Start: 04-01-2016 End: 04-01-2016 Follow Up Appt 6 months Marely perez PA-C Work Phone: Start: 04-01-2016 End: 04-01-2016 PFM Marely Marcos PA-C Work Phone: Start: 04-01-2016 End: 04-01-2016 Thyroid stimulating hormone (TSH) Marely Marcos PA-C Work Phone: Start: 04-01-2016 End: 04-01-2016 Thyroxine (T4) Marely Marcos PA-C Work Phone: Start: 03-16-2016 End: 03-22-2016 *Hepatic Function Panel Marely perez PA-C Work Phone: Start: 03-16-2016 End: 03-22-2016 Lipid panel [AGGREGATE] Marely perez PA-C Work Phone: Start: 09-21-2015 End: 09-21-2015 Follow Up Appt 6 months Bobby Ribera MD Start: 09-21-2015 End: 09-21-2015 MMM Bobby Ribera MD Start: 09-14-2015 End: 09-14-2015 *Hepatic Function Panel Marely perez PA-C Work Phone: Start: 09-14-2015 End: 09-14-2015 Lipid panel [AGGREGATE] Marely perez PA-C Work Phone: Start: 04-16-2015 End: 04-16-2015 Electrocardiogram, complete Marely Frausto PA-C Work Phone: Start: 04-16-2015 End: 04-16-2015 Follow Up Appt 6 months Marely perez PA-C Work Phone: Start: 04-16-2015 End: 04-16-2015 PFM Marely Marcos PA-C Work Phone: Start: 09-22-2014 End: 04-16-2015 *Hepatic Function Panel Bobby Ribera MD Start: 09-22-2014 End: 09-23-2014 Documentation of current medications Bobby Ribera MD Start: 09-22-2014 End: 09-22-2014 Follow Up Appt 6 months Bobby Ribera MD Start: 09-22-2014 End: 04-16-2015 Lipid panel [AGGREGATE] Bobby Ribera MD Start: 09-22-2014 End: 09-22-2014 MMM Bobby Ribera MD Start: 01-24-2014 End: 01-24-2014 Follow Up Appt 6 months Marely perez PA-C Work Phone: Start: 01-24-2014 End: 01-24-2014 PFM Marely Marcos PA-C Work Phone: Start: 07-31-2013 End: 07-31-2013 Follow Up Appt 6 months Bobby Ribera MD Start: 07-31-2013 End: 07-31-2013 MMM Bobby Ribera MD Start: 01-14-2013 End: 01-14-2013 Follow Up Appt Other Marely carey PA-C Work Phone: Start: 12-03-2012 End: 12-03-2012 Electrocardiogram, complete Bobby alicea MD Start: 12-03-2012 End: 12-03-2012 Follow Up Appt 6 weeks Bobby Ribera MD Start: 12-03-2012 End: 12-03-2012 Follow Up Appt Other Bobby Ribera MD Start: 12-03-2012 End: 12-03-2012 MMM Bobby Ribera MD Start: 05-14-2012 End: 12-03-2012 *Hepatic Function Panel Marely perez PA-C Work Phone: Start: 05-14-2012 End: 05-14-2012 Follow Up Appt 6 months Marely perez PA-C Work Phone: Start: 05-14-2012 End: 12-03-2012 Lipid panel [AGGREGATE] Marely perez PA-C Work Phone: Start: 05-14-2012 End: 05-14-2012 PFM Marely Marcos PA-C Work Phone: Start: 10-27-2011 End: 10-27-2011 Follow Up Appt 6 months Bobby Ribera MD Start: 10-27-2011 End: 04-26-2012 Nuclear stress test -exercise Bobby Ribera MD Start: 04-29-2011 End: 04-29-2011 Follow Up Appt 6 months Bobby Ribera MD Plan of Treatment Date Care Activity Detail Author Start: 05-21-2024 DXA Bone [Mass/Area] Bone density [facility] Start: 10-07-2022 Influenza vaccination INFLUENZA (Season Ended) [facility] Start: 02-06-2022 ADVANCE DIRECTIVE DISCUSSION ADVANCE DIRECTIVE DISCUSSION [facility] Start: 02-06-2022 DEPRESSION ASSESSMENT DEPRESSION ASSESSMENT [facility] Start: 05-29-2017 End: 05-29-2017 Appointment Appointment [facility] Work Phone: Start: 04-24-2017 End: 10-07-2016 *Hepatic Function Panel *Hepatic Function Panel [facility] Work Phone: Start: 04-24-2017 End: 10-07-2016 Lipid panel [AGGREGATE] *Lipid Profile CC PCP [facility] Work Phone: Start: 11-26-2016 DIABETES SCREEN DIABETES SCREEN [facility] Start: 10-07-2016 End: 10-07-2016 Appointment Appointment [facility] Work Phone: Start: 10-07-2016 End: 10-07-2016 Follow Up Appt 6 months Follow Up Appt 6 months [facility] Work Phone: Start: 10-07-2016 End: 10-07-2016 Follow Up Appt Other Follow Up Appt Other [facility] Work Phone: Start: 10-07-2016 End: 10-07-2016 PFM PFM [facility] Work Phone: Start: 09-20-2016 End: 10-07-2016 *Hepatic Function Panel *Hepatic Function Panel [facility] Work Phone: Start: 09-20-2016 End: 10-07-2016 Lipid panel [AGGREGATE] *Lipid Profile CC PCP [facility] Work Phone: Start: 04-01-2016 End: 04-01-2016 Follow Up Appt 6 months Follow Up Appt 6 months [facility] Work Phone: Start: 04-01-2016 End: 04-01-2016 PFM PFM [facility] Work Phone: Start: 04-01-2016 End: 04-01-2016 Thyroid stimulating hormone (TSH) *TSH [facility] Work Phone: Start: 04-01-2016 End: 04-01-2016 Thyroxine (T4) *T4 (Total) [facility] Work Phone: Start: 03-16-2016 End: 03-22-2016 *Hepatic Function Panel *Hepatic Function Panel [facility] Work Phone: Start: 03-16-2016 End: 03-22-2016 Lipid panel [AGGREGATE] *Lipid Profile CC PCP [facility] Work Phone: Start: 11-06-2015 End: 09-14-2015 *Hepatic Function Panel *Hepatic Function Panel [facility] Work Phone: Start: 11-06-2015 End: 09-14-2015 Lipid panel [AGGREGATE] *Lipid Profile CC PCP [facility] Work Phone: Start: 09-21-2015 End: 09-21-2015 Follow Up Appt 6 months Follow Up Appt 6 months [facility] Work Phone: Start: 09-21-2015 End: 09-21-2015 MMM MMM [facility] Work Phone: Start: 04-16-2015 End: 04-16-2015 Electrocardiogram, complete EKG (In office) [facility] Work Phone: Start: 04-16-2015 End: 04-16-2015 Follow Up Appt 6 months Follow Up Appt 6 months [facility] Work Phone: Start: 04-16-2015 End: 04-16-2015 PFM PFM [facility] Work Phone: Start: 09-22-2014 End: 04-16-2015 *Hepatic Function Panel *Hepatic Function Panel [facility] Work Phone: Start: 09-22-2014 End: 09-22-2014 Follow Up Appt 6 months Follow Up Appt 6 months [facility] Work Phone: Start: 09-22-2014 End: 04-16-2015 Lipid panel [AGGREGATE] *Lipid Profile CC PCP [facility] Work Phone: Start: 09-22-2014 End: 09-22-2014 MMM MMM [facility] Work Phone: Start: 01-24-2014 End: 01-24-2014 Follow Up Appt 6 months Follow Up Appt 6 months [facility] Work Phone: Start: 01-24-2014 End: 01-24-2014 PFM PFM [facility] Work Phone: Start: 07-31-2013 End: 07-31-2013 Follow Up Appt 6 months Follow Up Appt 6 months [facility] Work Phone: Start: 07-31-2013 End: 07-31-2013 MMM MMM [facility] Work Phone: Start: 01-14-2013 End: 01-14-2013 Follow Up Appt Other Follow Up Appt Other [facility] Work Phone: Start: 12-03-2012 End: 12-03-2012 Electrocardiogram, complete EKG (In office) [facility] Work Phone: Start: 12-03-2012 End: 12-03-2012 Follow Up Appt 6 weeks Follow Up Appt 6 weeks [facility] Work Phone: Start: 12-03-2012 End: 12-03-2012 Follow Up Appt Other Follow Up Appt Other [facility] Work Phone: Start: 12-03-2012 End: 12-03-2012 MMM MMM [facility] Work Phone: Start: 05-14-2012 End: 12-03-2012 *Hepatic Function Panel *Hepatic Function Panel [facility] Work Phone: Start: 05-14-2012 End: 05-14-2012 Follow Up Appt 6 months Follow Up Appt 6 months [facility] Work Phone: Start: 05-14-2012 End: 12-03-2012 Lipid panel [AGGREGATE] *Lipid Profile [facility] Work Phone: Start: 05-14-2012 End: 05-14-2012 PFM PFM [facility] Work Phone: Start: 10-27-2011 End: 10-27-2011 Follow Up Appt 6 months Follow Up Appt 6 months [facility] Work Phone: Start: 10-27-2011 End: 10-27-2011 Nuclear stress test -exercise Nuclear stress test -exercise [facility] Work Phone: Start: 04-29-2011 End: 04-29-2011 Follow Up Appt 6 months Follow Up Appt 6 months [facility] Work Phone: Start: 2005 BONE DENSITY BONE DENSITY [facility] Start: 2005 PNEUMOCOCCAL: 65+ (1 - PCV) PNEUMOCOCCAL: 65+ (1 - PCV) [facility] Start: 1990 SHINGRIX VACCINE (1 of 2) SHINGRIX VACCINE (1 of 2) [facility] Start: 10-10-1959 Urine microalbumin profile DTAP,TDAP,TD (1 - Tdap) [facility] CBC W Auto Different ial panel - Blood [facility] Comprehensive metabo lic 2000 panel - Serum or Plasma [facility] Patient Education [facility] Work Phone: XR Lumbar spine 2 or 3 Views [facility] Immunizations Immunization Date Immunization Notes Care Provider Tatyana richards 08-20-2024 RSV Adult Recombinan t (Arexvy) No Primary Care Physician [facility] 11-17-2023 Seasonal trivalent influenza vaccine, adjuvanted, preservative free No Primary Care Physician [facility] 10-30-2023 Pfizer Covid-19 (Comirnaty) No Primary Care Physician [facility] 12-07-2022 Pfizer Covid-19 (Comirnaty) No Primary Care Physician [facility] 11-15-2022 influenza, injectabl e, quadrivalent, preservative free No Primary Care Physician [facility] 08-23-2022 Covid Moderna Bivale nt Booster No Primary Care Physician [facility] 11-25-2021 Covid Moderna Bivale nt Booster No Primary Care Physician [facility] 06-09-2021 Covid (Moderna) No Primary C are Physician [facility] 12-22-2020 Covid (Moderna) No Primary C are Physician [facility] 11-12-2020 Influenza High-Dose Quadrivalent No Primary Care Physician [facility] 03-31-2020 Covid (Moderna) No Primary C are Physician [facility] 03-03-2020 Covid (Moderna) No Primary C are Physician [facility] 11-01-2019 influenza, injectabl e, quadrivalent, preservative free No Primary Care Physician [facility] 10-22-2018 influenza, high dose seasonal, preservative-free No Primary Care Physician [facility] 10-22-2018 zoster vaccine recombinant No Primary Care Physician [facility] 11-01-2017 influenza, high dose seasonal, preservative-free No Primary Care Physician [facility] 12-14-2015 pneumococcal conjuga te vaccine, 13 valent No Primary Care Physician [facility] 11-02-2015 influenza, high dose seasonal, preservative-free No Primary Care Physician [facility] 10-20-2008 influenza, injectabl e, quadrivalent, preservative free No Primary Care Physician [facility] 12-05-2006 influenza, injectabl e, quadrivalent, preservative free No Primary Care Physician [facility] Payers Date Payer Category Payer Private Health Insurance [id number] 2024 Private Health Insurance [id number] 2024 Self-pay [id number] 2017 Private Health Insurance [employer] A ETNA CHOICE POS II [id number] 2017-Present [phone] [address] [place] [address] POS [id number] 2006 Private Health Insurance [id number] Unknown [id number] Unknown [id number] 62 Unknown [id number] 62 Unknown [id number] 62 Unknown [id number] 62 Unknown [id number] 62 Unknown [id number] 62 Unknown [id number] 62 Unknown [id number] 62 Unknown [id number] 62 Social History Date Type Detail Facility Start: 12-18-2020 Tobacco smoking stat us AZIS Unknown if ever smoked [facility] Work Phone: Start: 1940 Sex Assigned At Female [facility] Start: 04-02-2013 End: 05-06-2024 Tobacco smoking status NHIS Never smoked tobacco [facility] Start: 06-03-2022 Alcohol intake Current non-dr business services analyst of alcohol (finding) [facility] Start: 1940 Sex Assigned At Not 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 February 22, 2024 2:47pm Essential hypertension chronic Ja nuary 2024 2:47pm Pure hypercholesterolemia chronic February 22, 2024 2:47pm Dyspnea on exertion acute May 06, 2024 10:45am 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 May 06, 2024 10:45am Essential hypertension chronic Ma rch 2024 10:45am Numbness and tingling noneactive Mar ch 2024 10:45am Acquired hypothyroidism noneactive M arch 2024 10:45am Establishing care with new doctor, encounter for noneactive April 10:45am Osteopenia noneactive May 06 10:45am [facility] Work Phone: Instructions 06-03-2022 Patient Instructions Note Date & Type Note Facility 06-03-2022 Instructions JEREMY Elizabeth - 06/03/2022 10:29 AM EDT PHARYNGITIS PATIENT INSTRUCTIONS DESCRIPTION: Inflammation and infection of the pharynx that can be caused by a variety of germs. SIGNS AND SYMPTOMS: -Sore throat. -Swallowing difficulty. -Tickle or lump in the throat. -Fever. -Swollen glands in the neck (sometimes). -Throat may be red or covered with a grayish membrane (sometimes). -Generalized aching. CAUSES: Infection from bacteria, viruses or fungi. PREVENTIVE MEASURES: -Avoid close contact with anyone with a sore throat. -Keep immunizations, including diphtheria, up to date. TREATMENT: -Laboratory throat culture and blood count may be done to determine type of infection. -Home care is usually sufficient. -Use gargles to relieve throat pain. Prepare double strength tea, hot or cold, or a salt-water solution (1 teaspoon salt in 8 oz. warm water). Use to gargle as often as you wish. -Use a cool-mist ultrasonic humidifier to increase air moisture. This will relieve the dry, tight feeling in the throat. Clean humidifier daily. -If the glands are large and tender, apply moist, warm soaks at least 4 times a day for 30 to 60 minutes. The compresses will be more effective if they are kept warm. Be careful not to burn the skin. -Replace your toothbrush. It may be harboring germs. -Until infection is gone, don't share washcloths; or food. MEDICATIONS: -For minor discomfort you may use non-prescription drugs such as acetaminophen. Don't give aspirin to a child for any viral illness. -Non-prescription throat lozenges may help ease discomfort. -Antibiotics or antifungal agents to fight bacterial or fungal infections. Be sure to finish entire course of prescribed antibiotics to avoid complications. ACTIVITY: Limited activity is necessary until symptoms disappear. DIET: Extra fluids are necessary. Drink at least 8 glasses of fluid daily, more for high fevers. If swallowing solid food is painful, try a liquid or soft diet for a few days. NOTIFY OFFICE: -The following occur during treatment: Breathing or swallowing difficulty. Fever; severe headache. Thick mucus drainage from the nose. Productive cough that is discolored. Skin rash. Dark urine. Chest pain. documented in this encounter [facility] History of Present illness Narrative 06-03-2022 JEREMY Elizabeth - 06/03/2022 10:21 AM EDT Note Date & Type Note Facility 06-03-2022 History of Presen t illness Narrative This note was created using [employer]. Subjective Mallory Perez is a 81 year old female. HPI 81-year-old female presents for sore throat and cough. Patient has had a sore throat for the past 3 days. She has also had a dry cough. She states she always has a runny nose and some congestion, nothing new. No new nasal congestion. No headaches. No fevers. No vomiting or diarrhea. No sick contacts. Still able to eat and drink. PAST MEDICAL HISTORY Diagnosis Date Arthritis Flatulence, eructation, and gas pain 05/08/13 Heart disease Hepatitis Hep A Hyperlipidemia Other specified disorder of gallbladder 05/08/13 Uterine cancer (HCC) PAST SURGICAL HISTORY Procedure Laterality Date BLOOD TRANSFUSION 2011 CATARACT EXT; EYEONICS IOL SYS CHOLECYSTECTOMY COLONOSCOPY 2016 normal LAPS SURG CHOLECYSTECTOMY W/CHOLANGIOGRAPHY 05/08/13 PAST SURGICAL HISTORY OF 1993 rotablator SALPINGO-OOPHORECTOMY COMPL/PRTL UNI/BI SPX 2011 TONSILLECTOMY PRIMARY/SECONDARY <AGE 12 Tonsillectomy alone TOTAL ABDOMINAL HYSTERECT W/WO RMVL TUBE OVARY 2012 Hysterectomy, JESÚS ALLERGIES Patient has no known allergies. MEDICATIONS KLOR-CON 10 10 mEq tablet vit D3-folic [id number] 2,000-800-0.32 unit-mcg-mg tab Take by mouth. atenolol (TENORMIN) 50 mg tablet ibuprofen (MOTRIN) 200 mg tablet Take 200 mg by mouth as needed. famotidine (PEPCID) 40 mg tablet Take 1 tablet by mouth once daily. famotidine (PEPCID) 40 mg tablet Take 1 tablet by mouth daily at bedtime. rosuvastatin (CRESTOR) 20 mg tablet Take 20 mg by mouth once daily. POTASSIUM CHLORIDE (KLOR-CON 10 ORAL) Take by mouth twice daily. Take 3 tablets levothyroxine (SYNTHROID) 50 mcg tablet Take 50 mcg by mouth once daily. Valsartan-hydroCHLOROthiazide 160-25 mg per tablet Take 1 tablet by mouth once daily. Aspirin 81 mg tab Take 81 mg by mouth. nitroglycerin sublingual 0.4 mg SL tablet Dissolve 0.4 mg under the tongue every 5 minutes as needed. Bifidobacterium Infantis (ALIGN) 4 mg cap Take by mouth once daily. (Patient not taking: Reported on 06/03/2022) ATENOLOL ORAL Take 50 mg by mouth twice daily. esomeprazole (NEXIUM) 40 mg capsule Take 40 mg by mouth as needed. (Patient not taking: Reported on 06/03/2022) FAMILY HISTORY Problem Relation Age of Onset Cancer Mother Uterine Heart Mother Cancer Sister Uterine Heart Maternal Grandmother Social History Tobacco Use Smoking status: Never Substance Use Topics Alcohol use: No Drug use: No Review of Systems Constitutional: Negative for chills and fever. HENT: Positive for sore throat and voice change (Loss of voice). Negative for congestion and ear pain. Respiratory: Positive for cough. Negative for shortness of breath. Cardiovascular: Negative for chest pain. Gastrointestinal: Negative for diarrhea and vomiting. Objective BP 168/82 Pulse 75 Temp 37.2 C (99 F) Resp 21 Wt 52.7 kg (116 lb 3.2 oz) SpO2 97% BMI 20.26 kg/m Physical Exam Vitals and nursing note reviewed. Constitutional: General: She is not in acute distress. Appearance: Normal appearance. She is not toxic-appearing. HENT: Right Ear: Tympanic membrane and ear canal normal. Left Ear: Tympanic membrane and ear canal normal. Nose: Nose normal. Mouth/Throat: Mouth: Mucous membranes are moist. Pharynx: Uvula midline. Posterior oropharyngeal erythema present. No oropharyngeal exudate. Tonsils: No tonsillar exudate or tonsillar abscesses. Eyes: Conjunctiva/sclera: Conjunctivae normal. Cardiovascular: Rate and Rhythm: Normal rate and regular rhythm. Pulmonary: Effort: Pulmonary effort is normal. Breath sounds: Normal breath sounds. Neurological: Mental Status: She is alert. Assessment and Plan ASSESSMENT/PLAN: 1. Sore throat - ICD9: 462, ICD10: J02.9 (primary diagnosis) - suspect viral - Alere Strep Test negative, no culture pending - Discussed supportive care treatment with fluids, rest and analgesia. -Recommend [id number] throat lozenges, fluids, cough medication as needed - STREP A MOLECULAR (POC) 2. URI, acute - ICD9: 465.9, ICD10: J06.9 - Discussed viral etiology and rationale for treatment. - Symptomatic treatment with prn analgesia - Supportive care with fluids and rest -Declines COVID/flu swab. Pt will do home test if needed. Diagnosis and treatment plan were discussed and questions were answered to the patient's satisfaction. Pt acknowledged understanding of concepts and follow up plan. Specific signs and symptoms that would indicate the need for higher level of care were discussed in detail warranting prompt ER evaluation. JEREMY Elizabeth documented in this encounter [facility] Evaluation note Note Date & Type Note Facility Evaluation note No assessment information [facility] Work Phone: Evaluation note Note Date & Type Note Facility Evaluation note Diagnosis Sore throat- Primary Acute pharyngitis URI, acute Acute upper respiratory infections of unspecified site documented in this encounter 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 November 05, 2024 10:47am Essential hypertension chronic Se ptember 2024 10:47am Acquired hypothyroidism noneactive S eptember 2024 10:47am Elevated serum creatinine noneactive November 05, 2024 10:47am Chronic left-sided low back pain noneactive November 05, 2024 10:47am [facility] Work Phone: Progress note Note Date & Type Note Facility Progress note Note Date/Time November 05, 2024 12:05pm [facility] [address] [place] [address] [place] [address] OFFICE VISIT Date of Service: 11/05/24 MR#: [id number] Acct: [id number] Name: MALLORY PEREZ Rep #: [id number] : 1940 Provider: Dr. Lex Malik MD Age/Sex: 84/F Location: [facility] Status: Signed Intake Vital Signs 05/06/24 10:50 05/21/24 08:19 11/05/24 11:09 Height 5 ft 4 in 5 ft 4 in 5 ft 4 in Weight: 123 lb BMI 21.1 BP 136/82 H Blood Pressure Location Lt brachial Position Sitting Respiration 14 Pulse 62 Pulse Source Monitor Temp 97.6 F L Temp Source Temporal Pulse Oximetry (%) 95 Oxygen Delivery Method room air Intake Visit Reasons: 6 M Check And Transfer Beader Required: No Is patient in pain?: Yes (L hip- shopulders) Pain scale (1-10): 4 Allergies No Known Allergies Allergy (Verified 11/05/24 10:54) Medications ?Medication ?Instructions ?Recorded ?Confirmed ?Type Bifidobacterium infantis 4 mg 4 mg PO QDAY 04/17/17 History capsule (Align (B.infantis)) aspirin 81 mg tablet,delayed 81 mg PO QDAY 04/17/17 History release cholecalciferol (vitamin D3) 50 2,000 unit PO DAILY 11/05/24 History mcg (2,000 unit) capsule acetaminophen 325 mg tablet 325 mg PO ONCE PRN 12/18/ 1 11/05/24 History nitroglycerin 0.4 mg sublingual 0.4 mg sublingual Q5-1 5M PRN chest 02/20/23 11/05/24 Rx tablet pain #25 tabs rosuvastatin 20 mg tablet 20 mg PO DAILY #90 tabs 11/0811/05/24 Rx atenolol 50 mg tablet 50 mg PO QDAY ONCE DAILY #90 tabs 02/28/24 11/05/24 Rx losartan 100 mg tablet 100 mg PO DAILY #90 tabs 06/3011/05/24 Rx denosumab 60 mg/mL subcutaneous 60 mg subcut [id number] #1 mL 05/23/24 11/05/24 Rx syringe (Prolia) hydrochlorothiazide 25 mg tablet 25 mg PO DAILY #90 TA BLETS 06/06/24 11/05/24 Rx levothyroxine 50 mcg tablet 50 mcg PO .COMPLEX 5 History (Synthroid) mecobalamin (vitamin B12) 1,000 1,000 mcg PO QDAY 10/0911/05/24 History mcg chewable tablet (B12 Active) Have you fallen in the past year?: No Nurse's Note: Pt has questions about Prolia, she thought that the prolia would help with pain,but then read into it. Would like to discuss prior to getting injection. She states that she wants to discuss today with provider. Pt states she is always inpain from sciatica, which is getting more frequent as she has had it for years and did PT successfully in the past for it many years ago. The L side is affected by this and pinches then shoots down the leg. She states sx's are alleviated by rest. Pt also c/o scoliosis pain which is ongoing and states that pain level in general with these things is off the charts over a 10/10, and thatthe pain is getting more frequently and making her lifestyle more Sedentary. Shestates her pain level is at a 4 today due to taking it easy. She states that she will get her flu vaccine at a later time. 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 Premature ventricular contraction Surgical History History of cholecystectomy History of total hysterectomy History of tonsillectomy Postsurgical percutaneous transluminal coronary angioplasty (PTCA) status (~10/31/04) Family History Father CHF (congestive heart failure) Mother CAD (coronary artery disease) Uterine cancer Brother CAD (coronary artery disease) Hypertension Sister Cancer uterine Social History household members: spouse current occupational status: retired 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 She isdue for some follow up blood work. She is not due for any further screening. She plans on getting her flu shot later in the season. She doesn't smoke and doesn't need any refills. She reports she is eating healthy and staying active,with walking every morning. She does check her blood pressure at home and reports it is still often in the 110s-130s/50-60s. She reports she has had her cuff checked for accuracy, but states it has been a while. She is taking her medication as prescribed without problems. She does try to monitor her salt intake. She takes her synthroid first thing in the morning before anything else. The patient has a history of CAD. She follows with cardiology has an appointment in a couple of weeks. She last saw them in February. She reports that she is taking her medication as prescribed without problems. She denies any symptoms of chest pain or palpitations. She reports her shortness of breath with exertion has been unchanged. Since she was last seen, she had a repeat bone density which showed progression to osteoporosis. Prolia was discussed and ordered, however, the patient is still waiting on her co-pay card from insurance to get her initial injection. She reports that she did get her approval, but has concerns about the side effects as well as that it doesn't help with pain. She isn't sure if she wants to start it. The patient has been having pain in her back. She reports she has had pain for years and has previously had imaging done. She believes it is related to arthritis and scoliosis. She does think over the last year, it has been progressing. She doesn't think it has changed in quality, however. It is in her lower back, but radiates down her legs and up her spine. She reports she will occasionally take aleve which doesn't help much. She rates her pain 5-6/10currently. She hasn't had any falls or injuries recently. Her imaging was lastdone 2 years ago. ROS Const Constitutional: Positive for weakness (occasional); No body ache, chills, excessive sweating, fatigue, fever(s), frequent falls, headache(s), snoring, weight change, sleep problems or change in appetite Eyes Eyes: Positive for blurry vision; No change in vision, eye pain or Light sensitivity ENT ENT: No abnormal hearing, ear or mastoid pain, tinnitus, nasal congestion, headache(s), neck pain or sore throat Resp Respiratory: Positive for shortness of breath sob: SOB with activity; No cough, snoring or wheezing Cardio Cardiology: No chest pain at rest, chest pain with exertion, excessive sweating,shortness of breath, dyspnea on exertion, lightheadedness, orthopnea, palpitations or other (no leg swelling) Gastro GI: No abdominal pain, change in bowel habits, constipation, cramping, diarrhea,nausea/dyspepsia or vomiting Genitourinary-Female: No difficulty urinating, burning urination, painful urination, urinary incontinence, urinary frequency, abnormal vaginal bleeding or pelvic pain Musc Musculoskeletal: Positive for back pain, numbness (occasional in toes), radiating pain into limb, stiffness and tingling (occasional in toes); No abnormal gait, joint pain, limited range of motion or neck pain Skin Skin: No dry skin, redness, lesions, itchy eyes, rash or wounds Neuro Neurology: Positive for weakness (occasional), numbness (occasional in toes) andtingling (occasional in toes); No abnormal gait, abnormal hearing, dizziness, frequent falls, headache(s), memory loss or fainting Psych Psychiatric: No anxiety, No change in appetite, No depression, No memory loss and No Thoughts of harming yourself/Others Endo Endocrine: No cold intolerance, excessive sweating, fatigue, flushing, heat intolerance, increased thirst/drinking, increased hunger or weight change Aller/Imm Allergy/Immunologic: No itchy eyes, seasonal allergy symptoms, hives or wheezing Mikey/Lymp Hematologic/Lymphatic: No easy bleeding, easy bruising, enlarged lymph nodes or other Exam Const General: cooperative, healthy appearing, no acute distress, well developed, not diaphoretic and not ill appearing Nutritional Appearance: well nourished Orientation: alert and oriented x3 Limitations: mental status not altered [facility] Head: normal to inspection, normocephalic and atraumatic Ears: hearing grossly normal bilaterally Face and sinus: normal facial exam Mouth: oral mucosae normal and moist mucous membranes Teeth and gingiva: dentition normal Throat: posterior oropharynx normal Eyes Conjunctivae: conjunctivae normal Sclera: sclerae normal Pupils: PERRL Chest Chest palpation & inspection: normal inspection of the chest Resp Effort & Inspection: normal respiratory effort, able to speak in complete sentences, no audible wheezes and no cough Auscultation: Bilateral: Clear to Auscultation Cardio Rate: regular rate Rhythm: regular rhythm Heart Sounds: S1 normal, S2 normal and no murmurs GI Inspection: non-distended Auscultation: normal bowel sounds Palpation: soft, no hepatosplenomegaly and nontender Musc Thoracic/Lumbar Spine: no paraspinal tenderness, scoliosis, no thoracic spinal tenderness and no lumbar spinal tenderness Skin General: no rashes or lesions noted and dry skin Wounds: no wounds Neuro General: patient alert and patient oriented x3 Cranial Nerves: PERRL Speech: speech normal Extrem General: normal to inspection and no edema Psych Appearance: grossly normal Affect: normal affect Attitude: cooperative Coding Level of Care Code Off vis,est,level 4 Diagnoses Age-related osteoporosis without current pathological fracture M81.0 Osteoporosis type: age-related Presence of current pathological fracture: without current pathological fracture 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 transplanted heart: tanana heart Acquired hypothyroidism E03.9 Elevated serum creatinine R79.89 Dyspnea on exertion R06.09 Time Spent (min) 32 Assessment and Plan Assessment and Plan (1) Osteoporosis: Status: Acute Qualifiers: Osteoporosis type: age-related Presence of current pathological fracture: without current pathological fracture Qualified Code(s): M81.0 - Age-related osteoporosis without current pathological fracture Plan: The patient was ordered prolia, but had concerns about starting it. Discussed her concerns including possible side effects with the medication and feels more comfortable starting the medication. She does report some planned tooth extractions coming up, so I did suggest she wait until that is completed to start the medication in the interest of not delaying the extractions. She was in agreement with the plan. (2) Chronic left-sided low back pain: Qualifiers: Sciatica presence: with sciatica Sciatica laterality: sciatica of left side Qualified Code(s): M54.42 - Lumbago with sciatica, left side; G89.29 - Other chronic pain Plan: The patient reports occasional sciatica. She has had chronic pain in her back for years. Likely arthritis related, however, with her osteoporosis and worsening pain over the last year, will get an XR for further assessment. Pending results, will make recommendations on pain management options. She was in agreement. (3) Essential hypertension: Status: Chronic Plan: Blood pressure shows fair control. Will continue current management and monitor. Discussed monitoring salt intake. 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 Patient reports FLYNN, but it is intermittent and manageable. She deniesany chest pain or palpitations. Will continue to follow up on cardiology's findings and recommendations. (5) Acquired hypothyroidism: Plan: Stable. Most recent TSH was in normal range. Discussed the importance of taking on an empty stomach first thing in the morning. Will continue current management. (6) Elevated serum creatinine: Plan: The patient's kidney function did worsen from past labs I have available. Unfortunately, these are from several years ago. Will get repeat labs to ensureno rapid progression and make further recommendations at that time. She was in agreement. (7) Dyspnea on exertion: Status: Acute Plan: Patient reports her symptoms are intermittent with exerting herself, and not allthe time. The patient declined further work up at her last office visit. Will continue to monitor. The patient is here for a follow up. Plan as above. Medications reviewed with the patient. Routine follow up scheduled. The patient was instructed to call with any concerns or questions before then and they were in agreement. I spent a total of 32 minutes on the date of the service which included preparing to see the patient, [id number] patient care, completing clinical documentation, obtaining and/or reviewing separately obtained history. This excludes separately reportable services. Orders: Orders CBC W/Diff, Automated Today I10 - Essential (primary) hypertension Comprehensive Metabolic Profil Today I10 - Essential (primary) hypertension Lumbar Spine 2 or 3 Views Today G89.29 - Other chronic pain, M54.50 - Low back pain, unspecified Plan Details Follow Up: 6 Months Clinical Quality Measures Falls Risk Screening/Assistive Devices Have you fallen in the past year?: No 11/05/24 1407 <Electronically signed by Sherley fernandez MD> Date _ Sherley Malik MD Cosigner Signature: Date (if applicable) CC: ~ [facility] Work Phone: Reason for referral (narrative) Note Date & Type Note Facility Reason for referral (narrative) No reason for referral information available [facility] Work Phone: Summary Purpose Family History No Family History Records Found Relationship Condition Age at Onset Recorded Date/T kaylee father Congestive heart failure Unknown mother Coronary artery disease Unknown brother Coronary artery disease Unknown Hypertension Unknown Relationship Condition Age at Onset Recorded Date/T kaylee father Congestive heart failure Unknown mother Coronary artery disease Unknown Malignant neoplasm of uterus Unknown brother Coronary artery disease Unknown Hypertension Unknown sister Malignant neoplasm Unknown Advance Directives No Advanced Directives Records Found Advance Directive Response Recorded Date/ Time Living Will Yes November 27 8:26am Power of Management Coordinator Yes November 27, 2020 8:26am Advance Directive Response Recorded Date/ Time Living Will Yes November 27 8:26am Do you have a Healthcare Power of Management Coordinator? 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 PT May 06, 2024 10:45am Reason for Visit Admit Date Premature ventricular contraction Januar y 2024 2:47pm Atherosclerotic heart diseas e of tanana coronary artery without angina pectoris February 22, 2024 2:47pm Essential hypertension February 21 2:47pm Pure hypercholesterolemia February 22, 2024 2:47pm Dyspnea on exertion May 06, 2024 10: 45am Atherosclerotic heart diseas e of tanana coronary artery without angina pectoris May 06, 2024 10:45am Essential hypertension May 06, 2024 10:45am Numbness and tingling May 06, 2024 1 0:45am Acquired hypothyroidism May 06, 2024 10:45am Establishing care with new doctor, toan roberts for May 06, 2024 10:45am Osteopenia May 06, 2024 10: 45am Chief Complaint Admit Date 1 Y FU February 22, 2024 2 :47pm 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 PT May 06, 2024 10:45am follow up May 21, 2024 8:0 7am Chief Complaint Admit Date 6 M FU November 05, 2024 10:47am Reason for Visit Admit Date Dyspnea on exertion November 05, 2024 10:47am Osteoporosis November 05, 2024 10:47am Atherosclerotic heart diseas e of tanana coronary artery without angina pectoris November 05, 2024 10:47am Essential hypertension November 05, 2 025 10:47am Acquired hypothyroidism November 05, 2024 10:47am Elevated serum creatinine October 10:47am Chronic left-sided low back pain Septemb 2024 10:47am Additional Source Comments INFORMATION SOURCE (unrecogn ized section and content) DATE CREATED AUTHOR 08/02/2017 [facility] DATE CREATED AUTHOR AUTHOR'S ORGANIZ ATION 08/02/2017 [facility] DATE CREATED AUTHOR AUTHOR'S ORGANIZ ATION 12/02/2024 [facility] Goals (unrecognized section and content) Goals may be documented in a n alternate sectionGoals may be documented in an alternate sectionGoals may be documented in an alternate sectionGoals may be documented in an alternate sectionGoals may be documented in an alternate section Source Comments (unrecognize d section and content) In the event this informatio n is protected by the Federal Confidentiality of Alcohol and Drug Abuse Patient Records regulations: The Federal rules restrict any use of the information to criminally investigate or prosecute any alcohol or drug abuse patient.[facility] Reason for Visit (unrecogniz ed section and content) Reason Comments Sore Throat Cough x 3 days Care Teams (unrecognized sec tion and content) Team Status: Active Member Role Status Dates Dr. Sherley Malik MD Primary Care Provider Active Team Status: Inactive Member Role Status Dates No Primary Care Physician Primary Care Provider Active Start: February 22, 2024 End: February 22, 2024 No Primary Care Physician Referring Provider Active Start: February 22, 2024 End: February 22, 2024 Dr. Teto Sharma MD Attending Provider Active S tart: February 22, 2024 End: February 22, 2024 Team Status: Inactive Member Role Status Dates No Primary Care Physician Primary Care Provider Active Start: May 06, 2024 End: May 06, 2024 No Primary Care Physician Referring Provider Active Start: May 06, 2024 End: May 06, 2024 Dr. Sherley Malik MD Attending Provider Active Start: May 06, 2024 End: May 06, 2024 Team Status: Inactive Member Role Status Dates No Primary Care Physician Primary Care Provider Active Start: May 08, 2024 End: May 08, 2024 Dr. Sherley Malik MD Attending Provider Active Start: May 08, 2024 End: May 08, 2024 Dr. Sherley Malik MD Referring Provider Active Start: May 08, 2024 End: May 08, 2024 Team Status: Inactive Member Role Status Dates Dr. Sherley Malik MD Primary Care Provider Active Start: May 21, 2024 End: May 21, 2024 Dr. Sherley Malik MD Attending Provider Active Start: May 21, 2024 End: May 21, 2024 Dr. Sherley Malik MD Referring Provider Active Start: May 21, 2024 End: May 21, 2024 Team Status: Active Member Role/Relationship Status Dates Dr. Sherley Malik MD Primary care physician Active Team Status: Inactive Member Role/Relationship Status Dates No Primary Care Physician Referring Provider Active Start: November 05, 2024 End: November 05, 2024 Dr. Sherley Malik MD Primary care physician Active Start: November 05, 2024 End: November 05, 2024 Dr. Sherley Malik MD Attending physician Active Start: November 05, 2024 End: November 05, 2024 FOR RECORDS PERTAINING TO PATIENTS WHO ARE OR HAVE BEEN ENROLLED IN A CHEMICAL DEPENDENCY/SUBSTANCEABUSE PROGRAM, SOME INFORMATION MAY BE OMITTED. This clinical summary was aggregated from multiple sources. Caution should be exercised in using it in the provision of clinical care. This summary normalizes information from multiple sources, and as a consequence, information in this document may materially change the coding, format and clinical context of patient data. In addition, data may be omitted in some cases. CLINICAL DECISIONS SHOULD BE BASED ON THE PRIMARY CLINICAL RECORDS. [employer] [facility]. provides no warranty or guarantee of the accuracy or completeness of information in this document.
== END | disposition home or self-care (01) ==
LOC: CVS 08:48
PROVIDERS: PCP Internal Medicine; Referring Provider Internal Medicine; Visit Provider Internal Medicine
DX: I71.40 Abdominal aortic aneurysm, without rupture, unspecified (principal)
CPT/HCPCS: 76706

== ENCOUNTER → 2024-12-17 | Outpatient (CLI) | payer OTHER, SELFPAY ==
--- NOTE | 2024-12-17 07:19 | ECHOD_ITS ---
Reason For Study Reason For Study: MURMUR Procedure This was a 2D Doppler, Color Flow transthoracic echocardiogram. Myocardial strain analysis was performed in this exam to aid in the assessment of cardiac function. Exam performed in department. Left Ventricle Normal LV size. Left ventricular systolic function is normal. Stage 1 diastolic dysfunction. The left ventricular ejection fraction is 65 %. No regional wall motion abnormalities noted. Right Ventricle Normal RV size. Normal systolic function. Atria Normal left atrium. Normal right atrium. Mitral Valve There is mild to moderate mitral annular calcification. Tricuspid Valve Normal tricuspid valve. Aortic Valve Trisinus/trileaflet aortic valve. Mild focal aortic valve calcification. Pulmonic Valve Normal pulmonic valve. Great Vessels Normal aortic root. The pulmonary artery is normal size. Inferior vena cava collapse with respiration. Pericardium/Pleural No pericardial effusion. MMode/2D Measurements & Calculations LVIDd: 3.8 cm IVSd: 0.75 cm LVOT diam: 2.0 cm LVIDs: 1.8 cm LVPWd: 0.83 cm LVOT area: 3.1 cm2 RVDd: 2.4 cm FS: 53.5 % Ao root diam: 3.3 cm LAV(MOD-bp): 31.6 ml LVAd ap4: 19.8 cm2 LAV(MOD-bp) Indexed: 19.8 ml/m2 LVLd ap4: 6.5 cm LAV(MOD-sp2): 37.2 ml EDV(MOD-sp4): 48.9 ml LAV(MOD-sp4): 26.0 ml EDV(sp4-el): 51.4 ml LVAs ap4: 8.5 cm2 LVLs ap4: 4.8 cm ESV(MOD-sp4): 13.2 ml ESV(sp4-el): 12.8 ml EF(MOD-sp4): 73.1 % EF(sp4-el): 75.1 % LVAd ap2: 20.8 cm2 SV(MOD-sp4): 35.7 ml SV(MOD-sp2): 39.6 ml LVLd ap2: 6.7 cm SI(MOD-sp4): 22.4 ml/m2 SI(MOD-sp2): 24.8 ml/m2 EDV(MOD-sp2): 54.1 ml EDV(sp2-el): 54.6 ml LVAs ap2: 9.3 cm2 LVLs ap2: 5.6 cm ESV(MOD-sp2): 14.5 ml ESV(sp2-el): 13.0 ml EF(MOD-sp2): 73.2 % SV(sp4-el): 38.7 ml LA dimension(2D): 3.2 cm LA A4 area: 12.3 cm2 RA A4 area: 10.1 cm2 Time Measurements MV dec time: 0.26 sec Doppler Measurements & Calculations MV E max sherry: 72.4 cm/sec Ao V2 max: 176.1 cm/sec MV A max sherry: 97.8 cm/sec MV dec slope: 275.3 cm/sec2 Ao max P.1 mmHg MV E/A: 0.74 Ao V2 mean: 120.8 cm/sec Ao mean P.9 mmHg Ao V2 VTI: 42.3 cm AV (velocity ratio): 0.48 CHERYL(I,D): 1.5 cm2 CHERYL(V,D): 1.5 cm2 LV V1 max: 87.3 cm/sec SV(LVOT): 62.1 ml PA V2 max: 104.3 cm/sec LV V1 max P.0 mmHg LV V1 mean P.6 mmHg LV V1 mean: 57.0 cm/sec LV V1 VTI: 20.1 cm ECHO/Echo Complete Interpretation Summary Stage 1 diastolic dysfunction. The left ventricular ejection fraction is 65 %. Left ventricular systolic function is normal. Normal LV size. The global longitudinal strain is normal. The global longitudinal strain = -18. 8 % (normal). Ordering Physician: Jalil Douglas Referring Physician: Sherley Malik Performed By: Liz Simms RDCS
--- OUTSIDE RECORDS SUMMARY | 2024-12-17 07:24 | XMS RPT_ITS | CCD ---
Author Organization [facility] CliniSyak Care Team Providers Care Toy Maker Name Role Phone LowVeroMayra Y Unavailable DeFinis, Harbrendon Y Unavailable Unavailable Vero Lowricia Y Unavailable Roof MENTAL RETARDATION NURSE, Nik Alvarez Unavailable YASH JAIN Unavailable Unavailable YASH JAIN Unavailable Unavailable YASH JAIN Unavailable Unavailable NO REFERRING DR Unavailable Unavailable Mayra Low Y Unavailable Unavailable Primary Care Provider [facility] Care Physician, No Primary Primary Care Provider Unavailable Care Physician, No Primary Referring Provider Un available Zachary PATEL, Dr. Irene Attending Provider [phone] Dr. Sherley Malik MD Attending Provider King PATEL, Dr. Lepe Referring Provider Dr. Sherley Malik MD Primary Care Provider [phone] Care Physician, No Primary Referring Provider Un available King PATEL, Dr. Lepe Primary Care Physician King PATEL, Dr. Lepe Attending Physician [phone] Dr. Sherley Malik MD Referring Provider Jalil Jenkins Attending Physician [phone] Sherley Malik Attending Unavailable Care Physician, No Primary Primary Care Unava ilable Care Physician, No Primary Referring Unava ilable Sherley Malik Primary Care Unavailable Glenn Alvarez Attending Unavailable Teto Sharma Attending Unavailable Care Physician, No Primary Primary Care Unava ilable Care Physician, No Primary Referring Unava ilable Jalil Douglas Attending Unavailable Sherley Malik Primary Care Unavailable Care Physician, No Primary Referring Unava ilable Easton, Sherley Attending Unavailable King, Sherley Primary Care Unavailable Care Physician, No Primary Referring Unava ilable King, Sherley Referring Unavailable Easton, Sherley Primary Care Unavailable Easton, Sherley Attending Unavailable Easton, Sherley Attending Unavailable Easton, Sherley Referring Unavailable King, Sherley Primary Care Unavailable Easton, Sherley Attending Unavailable King, Sherley Referring Unavailable Care Physician, No Primary Primary Care Unava ilable Demiter, Jalil Attending Unavailable Demiter, Jalil Referring Unavailable Easton, Sherley Primary Care Unavailable King, Sherley Referring Unavailable Easton, Sherley Primary Care Unavailable King, Sherley Attending Unavailable Allergies Allergy Classification Reported Allergen(s) Allergy Type Date of Onset Reaction(s) Facility (4 sources) NKDA drug allergy 04-29-2011 [facility] Work Phone: (4 sources) NKA drug allergy 04-29-2011 [facility] Work Phone: Medications Current Medications Medication Drug Class(es) Dates Sig (Normalized) Sig (Original) acetaminophen 325 mg oral tablet (6 sources) Start: 12-18-2020 take 1 tablet by mouth once as needed aspirin 81 mg delayed release oral tablet (17 sources) Nonsteroidal Anti-inflammatory Drug Start: 04-17-2017 take 1 tablet by mouth once daily Start: 06-02-2010 take 1 tablet by ronald th once daily ASPIRIN 81 MG TABS One tablet by mouth daily ASPIRIN [id number] Odalys Hanna Start: 06-02-2010 take 1 tablet by ronald th once daily ASPIRIN 81 MG TABS One tablet by mouth daily ASPIRIN [id number] Odalys Hanna Start: 06-02-2010 ASPIRIN EC 81 MG [facility] ASPIRIN [id number] Martine Gibbs LPN Comment on above: Take 81 mg by mouth. cholecalciferol 0.05 mg oral capsule (16 sources) Vitamin D Start: 11-30-2017 take 1 capsule by mouth once daily Start: 04-29-2011 End: 07-31-2013 take 1 tablet by mouth once daily VITAMIN D 2000 UNIT TABS One tablet by mouth daily CHOLECALCIFEROL [id number] Bobby Ribera MD losartan potassium 100 mg oral tablet (20 sources) Angiotensin 2 Receptor Franky Start: 02-22-2024 End: 04-10-2024 take 1 tablet by mouth once daily Start: 08-25-2017 End: 02-22-2024 take 1 tablet by mouth once daily Losartan 50 mg tablet Discontinued 50 mg PO DAILY 90 3 February 02, 2023 4:08pm February 22, 2024 4:44pm mecobalamin 1 mg chewable tablet (2 sources) Start: 11-05-2024 levothyroxine sodium 0.05 mg oral tablet (20 sources) l-Thyroxine Start: 11-05-2024 take 0.5 tablet by mouth once daily Start: 04-17-2017 End: 07-16-2021 take 1 capsule by mouth once daily [...] except 1/2 tablet on Monday LEVOTHYROXINE SODIUM [id number] Marely Marcos PA-C Start: 06-02-2010 take 1 tablet by ronald th once daily, then take 0.5 tablet by mouth once SYNTHROID 75 MCG TABS One tablet by mouth daily, except 1/2 tablet every Monday LEVOTHYROXINE SODIUM [id number] Odalys Hanna Start: 06-02-2010 take 1 tablet by ronald th once daily, then take 0.5 tablet by mouth once SYNTHROID 75 MCG TABS One tablet by mouth daily, except 1/2 tablet every Monday LEVOTHYROXINE SODIUM [id number] Odalys Hanna Comment on above: Take 50 mcg by mouth once daily. Completed/Discontinued Medications Medication Drug Class(es) Dates Sig (Normalized) Sig (Original) atenolol 50 mg oral tablet (20 sources) beta-Adrenergic Franky Start: 02-22-2024 End: 02-28-2024 take 1 tablet by mouth once Atenolol 50 mg tablet Discontinued 50 mg PO ONCE 180 February 23, 2024 5:41pm February 28, 2024 3:59pm Start: 06-02-2010 End: 02-22-2024 take 1 tablet by mouth twice daily Atenolol 50 mg tablet Discontinued 50 mg PO TWICE A DAY 180 3 February 13, 2024 9:51am February 22, 2024 4:44pm Comment on above: Take 50 mg by mouth twice daily. bifidobacterium infantis 4 mg oral capsule (12 sources) Start: 09-21-19 End: 11-21-19 take 1 capsule by mouth once daily Bifidobacterium Infantis (Align (B.Infantis)) 4 mg capsule Discontinued 4 mg PO daily April 17, 2017 12:00am November 20, 2024 11:01am Comment on above: Take by mouth once d aily. calcium carbonate / vitamin D (10 sources) Start: 06-03-19 take 1 tablet by mouth once daily CALCIUM CARBONATE-VITAMIN D 600-125 MG-UNIT TABS One tablet by mouth daily CALCIUM CARBONATE-VITAMIN D [id number] Odalys Hanna Start: 06-02-2010 End: 04-29-2011 take 1 tablet by mouth once daily CALCIUM CARBONATE-VITAMIN D 600-125 MG-UNIT TABS One tablet by mouth daily CALCIUM CARBONATE-VITAMIN D [id number] Bobby Ribera MD 1 ml denosumab 60 mg/ml prefilled syringe (3 sources) RANK Ligand Inhibitor Start: 05-23-2024 End: 11-20-2024 Denosumab (Prolia) 60 mg/mL syringe Discontinued 60 mg SC every 6 months 1 May 23, 2024 12:00am November 20, 2024 11:00am esomeprazole 40 mg delayed release oral capsule (12 sources) Proton Pump Inhibitor Start: 06-02-2010 End: 12-28-2018 take 1 capsule by mouth once daily as needed Esomeprazole Magnesium (Nexium) 40 mg capsule,delayed release(DR/EC) Discontinued 40 mg PO daily as needed May 29, 2017 12:00am December 28, 2018 10:16am Start: 06-02-2010 NEXIUM 40 MG C PDR as needed ESOMEPRAZOLE MAGNESIUM [id number] Odalys Hanna Comment on above: Take 40 mg by mouth as needed. famotidine 40 mg oral tablet (18 sources) Histamine-2 Receptor Antagonist Start: 2014 End: 2024 take 1 tablet by mouth once daily as needed Famotidine (Pepcid) 40 mg tablet Discontinued 40 mg PO daily as needed April 17, 2017 12:00am February 22, 2024 4:09pm Comment on above: Take 1 tablet by ronald th daily at bedtime. Take 1 tablet by ronald th once daily. hydroCHLOROthiazide 25 mg oral tablet (20 sources) Thiazide Diuretic Start: 2017 End: 2024 take 1 tablet by mouth once daily Hydrochlorothiazide 25 mg tablet Discontinued 25 mg PO DAILY 90 June 13, 2023 8:20am June 06, 2024 12:39pm hydroCHLOROthiazide 25 mg / valsartan 160 mg oral tablet (20 sources) Thiazide Diuretic, Angiotensin 2 Receptor Franky Start: 2017 End: 2017 Valsartan-Hydrochlorothia zide (Diovan Hct) 160-25 mg tablet Discontinued 1 {tbl} PO daily 90 3 March 07, 2017 1:00am August 25, 2017 10:45am Start: 09-21-2015 take 1 tablet by ronald th once daily DIOVAN HCT 160-25 MG TABS One tablet by mouth daily VALSARTAN-HYDROCHLOROTHIAZIDE [id number] Bobby Ribera MD Start: 06-02-2010 End: 09-21-2015 take 1 tablet by mouth once daily DIOVAN HCT 160-25 MG TABS One tablet by mouth daily VALSARTAN-HYDROCHLOROTHIAZIDE [id number] Bobby Ribera MD Start: 06-02-2010 take 1 tablet by ronald th once daily DIOVAN HCT 160-25 MG TABS One tablet by mouth daily VALSARTAN-HYDROCHLOROTHIAZIDE [id number] Odalys Garciaward Start: 06-02-2010 End: 09-21-2015 take 1 tablet by mouth once daily DIOVAN HCT 160-25 MG TABS One tablet by mouth daily VALSARTAN-HYDROCHLOROTHIAZIDE [id number] Bobby Ribera MD Comment on above: Take 1 tablet by ronald th once daily. ibuprofen 200 mg oral tablet (12 sources) Nonsteroidal Anti-inflammatory Drug Start: 04-17-2017 End: 12-18-2020 Ibuprofen (Advil) 200 mg tablet Discontinued PO Q8H as needed 0 April 17, 2017 12:00am December 18, 2020 11:02am Start: 09-21-2015 ADVIL 200 MG T ABS One tablet by mouth Q6-8 H as needed IBUPROFEN [id number] Bobby Ribera MD ibuprofen (MOTRI N) 200 mg tablet Take 200 mg by mouth as needed. 0 Active Comment on above: Take 200 mg by mouth as needed. Lactobacillus Combination No.8 (Adult Probiotic) 3 billion cell capsule (6 sources) Start: 8 End: 8 take 3 [...] One tablet by mouth daily MULTIPLE VITAMINS-MINERALS [id number] Odalys Hanna Start: 06-02-2010 End: 07-31-2013 take 1 tablet by mouth once daily CENTRUM SILVER TABS One tablet by mouth daily MULTIPLE VITAMINS-MINERALS [id number] Bobby Ribera MD MULTIPLE VITAMINS-MINERALS (2 sources) Start: 06-02-2010 take 1 tablet by mouth once daily CENTRUM SILVER TABS One tablet by mouth daily MULTIPLE VITAMINS-MINERALS [id number] Odalys Hanna Start: 06-02-2010 End: 07-31-2013 take 1 tablet by mouth once daily CENTRUM SILVER TABS One tablet by mouth daily MULTIPLE VITAMINS-MINERALS [id number] Bobby Ribera MD nitroglycerin 0.4 mg sublingual [...] tablet,ER particles/crystals Discontinued 0 .ROUTE .COMPLEX 360 February 02, 2023 4:08pm February 22, 2024 4:43pm TAKE 2 TABLETS TWICE A DAY Start: 04-17-2017 End: 01-11-2021 take 20 mEq by mouth twice daily Potassium Chloride Discontinued 20 MEQ PO TWICE A DAY 360 February 10, 2020 7:22pm January 11, 2021 6:21pm Start: 05-14-2012 KLOR-CON 10 10 mEq tablet Start: 06-02-2010 take 1 tablet by ronald twice daily POTASSIUM CHLORIDE ER 10 MEQ CR-TABS One tablet by mouth twice daily POTASSIUM CHLORIDE [id number] Odalys Hanna take 3 tablets by mo [facility] twice daily POTASSIUM CHLORIDE (KLOR-CON 10 ORAL) Take by mouth twice daily. Take 3 tablets 0 Active Comment on above: Take by mouth twice daily. Take 3 tablets PROBIOTIC PRODUCT (4 sources) Start: 5 take 1 tablet by mouth once daily 4X PROBIOTIC TABS One tablet by mouth daily PROBIOTIC PRODUCT [id number] Bobby Ribera MD PROBIOTIC PRODUCT (1 source) Start: 5 take 1 tablet by mouth once daily 4X PROBIOTIC TABS One tablet by mouth daily PROBIOTIC PRODUCT [id number] Bobby Ribera MD rosuvastatin calcium 20 mg oral tablet (20 sources) HMG-CoA Reductase Inhibitor Start: 1 End: 4 Rosuvastatin 20 mg tablet Discontinued 0 .ROUTE .COMPLEX 90 3 January 03, 2022 7:04pm February 20, 2023 2:29pm TAKE 1 TABLET DAILY Comment on above: Take 20 mg by mouth once daily. vit D3-folic opfl-R4-T5-B12 2,000-800-0.32 unit-mcg-mg tab (1 source) vit D3-folic onhg-U5-R4-B12 2,000-800-0.32 unit-mcg-mg tab Take by mouth. 0 [...] uterus] Onset: 09-29-2015 09-29-2015 Chronic Cardiac dysrhythmias (14 sources) Ventricular premature beats; Translations: [Ventricular premature depolarization] Onset: 06-02-2010 06-02-2010 Chronic Coronary atherosclerosis and other heart disease (19 sources) Coronary atherosclerosis; Translations: [Atherosclerotic heart disease of [place] coronary artery without angina pectoris] Onset: 06-02-2010 06-02-2010 Chronic Disorders of lipid metabolism (15 sources) Hyperlipidemia; Translations: [Pure hypercholesterolemi a] Onset: 06-02-2010 06-02-2010 Chronic Essential hypertension (19 sources) Hypertensive disorder; Translations: [Essential hypertension] Onset: 06-02-2010 06-02-2010 Chronic Heart valve disorders (4 sources) Heart murmur; Translations: [Cardiac murmur, unspecified] Onset: 11-20-2024 11-23-2024 Episodic Osteoporosis (8 sources) Osteoporosis; Translations: [Age-related osteoporosis without current pathological fracture] 12-18-2020 Chronic Other acquired deformities (6 sources) Scoliosis deformity of spine; Translations: [Scoliosis, [...] injuries and conditions due to external causes (4 sources) Injury of left wrist; Translations: [Unspecified injury of left wrist, hand and finger(s), initial encounter] 12-05-2020 Episodic Other lower respiratory disease (8 sources) Dyspnea on exertion; Translations: [Other forms [...] conditions (not mental disorders or infectious disease) (2 sources) Serum creatinine raised; Translations: [Other specified abnormal findings of blood chemistry] 11-05-2024 Episodic Other upper respiratory infections (2 sources) Sore throat symptom; Translations: [Acute pharyngitis, unspecified] Episodic Spondylosis; intervertebral disc disorders; other back problems (2 sources) Chronic low back pain; Translations: [Chronic left-sided low back pain] 11-05-2024 Episodic Thyroid disorders (4 sources) Acquired hypothyroidism; Translations: [Hypothyroidism, unspecified] 05-06-2024 Chronic Unclassified (1 source) Abdominal aortic aneurysm, without rupture, unspecified; Translations: [Abdominal aortic aneurysm, without rupture, unspecified] Onset: 12-10-2024 Unclassified (1 source) Low back pain, unspecified; Translations: [Low back pain, unspecified] Onset: 12-02-2024 Past or Other Problems Problem Classification Problem Date Documented Da te Episodic/Chronic Biliary tract disease (2 sources) Biliary sludge; Translations: [Other specified diseases of gallbladder] Onset: 04-23-2013 04-23-2013 Episodic Coronary atherosclerosis and other heart disease (11 sources) Coronary angioplasty status; Translations: [Patient post [...] Test Name Value Interpretation Reference Range Facility AAA Screeningon 12-03-2024 AAA Screening [facility] [place] [address] AAA Screening 12/03/24 0905 MR#: [id number] Acct: [id number] Name: MALLORY PEREZ Rep #: [id number] : 1940 84 From: Glenn Alvarez MD Attending Dr: Dr. Sherley Malik MD Status: RE G CLI Ordering Dr: Sherley Malik MD Date: 12/03/24 Location: [facility] Sex: F C Admitted: Reason For Study Reason For Study: AAA SCreening Aorta Measurements Aorta Doppler Measurements Proximal aorta measures1.55 x 1.60cm. in cross-sectional Peak systolic flow velocities within the proximal aorta axis. measure 72.3 cm/sec. Proximal aorta measures1.55cm. in longitudinal axis. Peak systolic flow velocities within the mid aorta measure Mid aorta measures1.48 x1.44cm. in cross-sectional axis. 72.3 cm/sec. Mid aorta measures1.39cm. in longitudinal axis. Peak systolic flow velocities within the distal aorta Distal aorta measures3.06 x 2.92cm. in cross-sectional axis.measure 67.6 cm/sec. Distal aorta measures3.09cm. in longitudinal axis. Left Iliac Artery Left iliac artery measures 0.87 x 0.77 cm. in the cross-sectional axis. Left iliac artery measures 0.94 cm. in the longitudinal axis. Peak systolic velocity in the left iliac artery measures 98.2 cm/sec. Right Iliac Artery Right iliac artery measures 0.75 x0.87 cm. in the cross-sectional axis. Right iliac artery measures 0.76 cm. in the longitudinal axis. Peak systolic velocity in the right iliac artery measures 135.6 cm/sec. Procedure Aorta IVC Iliac vasculature or bypass grafts 92539. The exam was diagnostic. Exam performed in department. VL/AAA Screening Interpretation Summary Aorta patent, 3.09 cm aneurysm present. Bilateral iliac arteries patent, normal caliber. Ordering Physician: Sherley Malik Referring Physician: Sherley Malik Performed By: Duncan Franklin, RVT 12/03/241532 Date Glenn Alvarez MD CC: Dr. Sherley aMlik MD Date Dictated: 12/03/24904 Date Transcribed: 12/03/241532 Retail Buyer: Signed Normal [facility] Cardiology Visit Reporton Cardiology Visit Report 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 Normal [facility] Absolute lymphocyte countOrd ered By: Sherley Malik on 11-07-2024 Lymphocytes Auto (Unsp spec) [#/Vol] 2.76 10*3/uL 0.83-4.51 [facility] Absolute neutrophil countOrd ered By: Sherley Malik on 11-07-2024 Neutrophils (Bld) [#/Vol] 3.7 10*3/uL 2.0-7.7 [facility] Anion gap in Serum or Plasma Ordered By: Sherley Malik on 11-07-2024 Anion gap [Moles/Vol] 11 mmol/L 5-15 [facility] Automated blood erythrocyte countOrdered By: Sherley Malik on 11-07-2024 RBC (Bld) [#/Vol] 3.49 10*6/uL Low 4.2-5.4 [facility] Comment on above: Performed By: #### L 500.4050, L100.0100 ####[facility] [address] [place], [address] Automated blood hematocrit ( percentage)Ordered By: Sherley Malik on 11-07-2024 Hematocrit (Bld) [Volume fraction] 33.1 % Low 37-47 [facility] Comment on above: Performed By: #### L 500.4050, L100.0100 ####[facility] [address] [place], [address] Automated lymphocyte count a s percentage of total leukocytesOrdered By: Sherley Malik on 11-07-2024 Lymphocytes/100 WBC Auto (Unsp spec) 36.7 % - [facility] BUN/creatinine ratioOrdered By: Sherley Malik on 11-07-2024 Urea nitrogen/Creatinine [Mass ratio] 13.3 mg/mg 10- [facility] Basophil percentageOrdered B y: Sherley Malik on 11-07-2024 Basophils/100 WBC (Bld) 0.9 % Normal 0-1 [facility] Comment on above: Performed By: #### L 500.4050, L100.0100 ####[facility] [address] [place], [address] Bilirubin, totalOrdered By: Sherley Malik on 11-07-2024 Bilirubin [Mass/Vol] 0.68 mg/dL 0.00-1.30 [facility] CBC W/Diff, Automatedon 100 Absolute Lymph 2.76 X10 3/uL Normal 0.83-4.51 [facility] Comment on above: Performed By: #### L 500.4050, L100.0100 ####[facility] [address] [place], [address] Absolute Neut 3.7 X10 3/uL Normal 2.0-7.7 [facility] Comment on above: Performed By: #### L 500.4050, L100.0100 ####[facility] [address] [place], [address] IG% 0.300 Normal 0.0-0.9 [facility] Comment on above: Result Comment: IG% - Immature Granulocytes (promyelocytes, myelocytes and metamyelocytes) > 1% indicates that a LEFT SHIFT is Present. Performed By: #### L 500.4050, L100.0100 ####[facility] [address] [place], [address] Lymphocytes/100 WBC (Bld) 36.7 % Normal 19-41 [facility] Comment on above: Performed By: #### L 500.4050, L100.0100 ####[facility] [address] [place], [address] Nucleated RBC (Bld) [#/Vol] 0 10*3/uL Normal 0-5 [facility] Comment on above: Performed By: #### L 500.4050, L100.0100 ####[facility] [address] [place], [address] RDW SD 42.8 fl Normal 35.1-43.9 [facility] Comment on above: Performed By: #### L 500.4050, L100.0100 ####[facility] [address] [place], [address] Carbon dioxide, total [Moles /volume] in Central venous bloodOrdered By: Sherley Malik on 11-07-2024 CO2 [Moles/Vol] 25.8 mmol/L 21.0-32.0 [facility] Chloride assayOrdered By: Kosta Malik on 11-07-2024 Chloride [Moles/Vol] 102 mmol/L 98-108 [facility] Comprehensive Metabolic Prof ilon 11-07-2024 Albumin [Mass/Vol] 4.3 g/dL Normal 3.4-4.8 [facility] Comment on above: Performed By: #### L 500.4050, L100.0100 ####[facility] [address] [place], [address] Albumin/Globulin [Mass ratio] 1.5 {ratio} Normal 0.9-2.4 [facility] Comment on above: Performed By: #### L 500.4050, L100.0100 ####[facility] [address] [place], [address] ALK PHOS 82 U/L Normal 35-104 [facility] Comment on above: Performed By: #### L 500.4050, L100.0100 ####[facility] [address] [place], [address] ALT [Catalytic activity/Vol] 20 U/L Normal <=34 [facility] Comment on above: Performed By: #### L 500.4050, L100.0100 ####[facility] [address] [place], [address] AST [Catalytic activity/Vol] 29 U/L Normal <=31 [facility] Comment on above: Performed By: #### L 500.4050, L100.0100 ####[facility] [address] [place], [address] Bilirubin [Mass/Vol] 0.68 mg/dL Normal 0.00-1.30 [facility] Comment on above: Performed By: #### L 500.4050, L100.0100 ####[facility] [address] [place], [address] BUN/CRE 13.3 RATIO Normal 10-20 [facility] Comment on above: Performed By: #### L 500.4050, L100.0100 ####[facility] [address] [place], [address] Calcium [Mass/Vol] 10.0 mg/dL Normal 7.6-11.0 [facility] Comment on above: Performed By: #### L 500.4050, L100.0100 ####[facility] [address] [place], [address] Chloride [Moles/Vol] 102 mmol/L Normal 98-108 [facility] Comment on above: Performed By: #### L 500.4050, L100.0100 ####[facility] [address] [place], [address] CO2 [Moles/Vol] 25.8 mmol/L Normal 21.0-32.0 [facility] Comment on above: Performed By: #### L 500.4050, L100.0100 ####[facility] [address] [place], [address] Creatinine [Mass/Vol] 1.79 mg/dL High 0.70-1.20 [facility] Comment on above: Performed By: #### L 500.4050, L100.0100 ####[facility] [address] [place], [address] GAP 11 Normal 5-15 [facility] Comment on above: Performed By: #### L 500.4050, L100.0100 ####[facility] [address] [place], [address] GFR/1.73 sq M.predicted among non-blacks MDRD (S/P/Bld) [Vol rate/Area] 28 mL/min/{1.73_m2} Low >60 [facility] Comment on above: Result Comment: mL/m in/1.73m2 CKD-EPI Creatinine Equation (2020) Performed By: #### L 500.4050, L100.0100 ####[facility] [address] [place], [address] Globulin (S) [Mass/Vol] 2.9 g/dL Normal 2.2-4.2 [facility] Comment on above: Performed By: #### L 500.4050, L100.0100 ####[facility] [address] [place], [address] Glucose [Mass/Vol] 107 mg/dL High 70-99 [facility] Comment on above: Performed By: #### L 500.4050, L100.0100 ####[facility] [address] [place], [address] Potassium [Moles/Vol] 4.4 mmol/L Normal 3.3-5.1 [facility] Comment on above: Performed By: #### L 500.4050, L100.0100 ####[facility] [address] [place], [address] Sodium [Moles/Vol] 138 mmol/L Normal 133-145 [facility] Comment on above: Performed By: #### L 500.4050, L100.0100 ####[facility] [address] [place], [address] T PROT 7.2 g/dL Normal 5.9-8.4 [facility] Comment on above: Performed By: #### L 500.4050, L100.0100 ####[facility] [address] [place], [address] Urea nitrogen [Mass/Vol] 24 mg/dL High 4-19 [facility] Comment on above: Performed By: #### L 500.4050, L100.0100 ####[facility] [address] [place], [address] Eosinophil percentageOrdered By: Sherley Malik on 11-07-2024 Eosinophils/100 WBC (Bld) 4.0 % Normal 0-5 [facility] Comment on above: Performed By: #### L 500.4050, L100.0100 ####[facility] [address] [place], [address] Erythrocyte distribution wid th ratioOrdered By: Sherley Malik on 11-07-2024 Erythrocyte distribution width (RBC) [Ratio] 12.4 % Normal 11.6-14.6 [facility] Comment on above: Performed By: #### L 500.4050, L100.0100 ####[facility] [address], [address] Erythrocyte distribution wid th standard deviationOrdered By: Sherley Malik on 11-07-2024 Erythrocyte distribution width (RBC) [Ratio] 42.8 fl 35.1-43.9 [facility] Glomerular filtration rate ( GFR) estimation/1.73 sq m using serum, plasma, or whole bOrdered By: Sherley Malik on 11-07-2024 GFR/1.73 sq M.predicted among non-blacks MDRD (S/P/Bld) [Vol rate/Area] 28 mL/min/{1.73_m2} Low >60 [facility] Comment on above: mL/min/1.73m2 CKD-EP I Creatinine Equation (2020) Hemoglobin measurementOrdere d By: Sherley Malik on 11-07-2024 Hemoglobin (Bld) [Mass/Vol] 11.4 g/dL Low 12.0-15.0 [facility] Comment on above: Performed By: #### L 500.4050, L100.0100 ####[facility] [address] [place], [address] Immature granulocytes/100 WB C Auto (Bld)Ordered By: Sherley Malik on 11-07-2024 Immature granulocytes/100 WBC (Bld) 0.300 % 0.0-0.9 [facility] Comment on above: IG% - Immature Granu locytes (promyelocytes, myelocytes and metamyelocytes) > 1% indicates that a LEFT SHIFT is Present. Laboratory - Chemistry and C hemistry - challengeOrdered By: Sherley Malik on 11-07-2024 AST [Catalytic activity/Vol] 29 U/L <32 [facility] Lumbar Spine 2 or 3 Viewson 11-07-2024 Lumbar Spine 2 or 3 Views [facility] Imaging Services [address] [place], [place] [address] Lumbar Spine 2 or 3 Views MR#: [id number] Acct: [id number] Name: MALLORY PEREZ Rep #: [id number] : 1940 F 84 From: Eber Mitchell MD PCP: Dr. Sherley Malik MD Status: REG CLI Study: Lumbar Spine 2 or 3 Views Date of Exam: Exam# [id number] Ordering Dr: Sherley Malik MD PROCEDURE: LUMBAR [...] described. 3. Abdominal aortic aneurysm. Reading Location: [facility] CC: Dr. Sherley Malik MD Retail Buyer: Signed Normal [facility] MCV (mean corpuscular volume ) determinationOrdered By: Sherley Malik on 11-07-2024 MCV (RBC) [Entitic vol] 94.8 fL Normal 81-99 [facility] Comment on above: Performed By: #### L 750.1790, L100.0100 ####[facility] [address] [place], [address] Mean corpuscular hemoglobin (MCH) determinationOrdered By: Sherley Malik on 11-07-2024 MCH (RBC) [Entitic mass] 32.7 pg High 27.0-32.0 [facility] Comment on above: Performed By: #### L 500.4050, L100.0100 ####[facility] [address] [place], [address] Mean corpuscular hemoglobin concentration (MCHC) determinationOrdered By: Sherley Malik on 11-07-2024 MCHC (RBC) [Mass/Vol] 34.4 g/dL Normal 32-36 [facility] Comment on above: Performed By: #### L 500.4050, L100.0100 ####[facility] [address] [place], [address] Mean platelet volume determi nationOrdered By: Sherley Malik on 11-07-2024 Platelet mean volume (Bld) [Entitic vol] 10.3 fL Normal 6.2-12.0 [facility] Comment on above: Performed By: #### L 500.4050, L100.0100 ####[facility] [address] [place], [address] Monocyte percentageOrdered B y: Sherley Malik on 11-07-2024 Monocytes/100 WBC (Bld) 8.5 % Normal 0-10 [facility] Comment on above: Performed By: #### L 500.4050, L100.0100 ####[facility] [address] [place], [address] Neutrophil percentageOrdered By: Sherley Malik on 11-07-2024 Neutrophils/100 WBC (Bld) 49.6 % Normal 47-70 [facility] Comment on above: Performed By: #### L 500.4050, L100.0100 ####[facility] [address] [place], [place], [address] Nucleated red blood cell per centageOrdered By: Sherley Malik on 11-07-2024 Nucleated RBC/100 WBC (Bld) [Ratio] 0 % 0-5 [facility] Platelet countOrdered By: Kosta Malik on 11-07-2024 Platelets (Bld) [#/Vol] 216 10*3/uL Normal 150-450 [facility] Comment on above: Performed By: #### L 500.4050, L100.0100 ####[facility] [address] [place], [place], [address] Potassium measurement (mass/ volume)Ordered By: Sherley Malik on 11-07-2024 Potassium (Unsp spec) [Mass/Vol] 4.4 mmol/L 3.3-5.1 [facility] Serum creatinine measurement (mass/volume)Ordered By: Sherley Malik on 11-07-2024 Creatinine [Mass/Vol] 1.79 mg/dL High 0.70-1.20 [facility] Serum globulin measurementOr dered By: Sherley Malik on 11-07-2024 Globulin (S) [Mass/Vol] 2.9 g/dL 2.2-4.2 [facility] Serum glucose measurement (m ass/volume)Ordered By: Sherley Malik on 11-07-2024 Glucose [Mass/Vol] 107 mg/dL High 70-99 [facility] Serum or plasma alanine deal otransferase (ALT) measurementOrdered By: Sherley Malik on 11-07-2024 ALT [Catalytic activity/Vol] 20 U/L <35 [facility] Serum or plasma albumin alex urement (mass/volume)Ordered By: Sherley Malik on 11-07-2024 Albumin [Mass/Vol] 4.3 g/dL 3.4-4.8 [facility] Serum or plasma albumin/glob ulin mass ratioOrdered By: Sherley Malik on 11-07-2024 Albumin/Globulin [Mass ratio] 1.5 {ratio} 0.9-2.4 [facility] Serum or plasma alkaline mason sphatase measurementOrdered By: Sherley Malik on 11-07-2024 ALP [Catalytic activity/Vol] 82 U/L 35-104 [facility] Serum or plasma calcium alex urement (mass/volume)Ordered By: Sherley Malik on 11-07-2024 Calcium [Mass/Vol] 10.0 mg/dL 7.6-11.0 [facility] Serum or plasma urea nitroge n measurement (mass/volume)Ordered By: Sherley Malik on 11-07-2024 Urea nitrogen [Mass/Vol] 24 mg/dL High 4-19 [facility] Sodium levelOrdered By: Lex Malik on 11-07-2024 Sodium [Moles/Vol] 138 mmol/L 133-145 [facility] Total proteinOrdered By: Matt Malik on 11-07-2024 Protein [Mass/Vol] 7.2 g/dL 5.9-8.4 [facility] White blood cell (WBC) count Ordered By: Sherley Malik on 11-07-2024 WBC (Bld) [#/Vol] 7.5 10*3/uL Normal 4.4-11.0 [facility] Comment on above: Performed By: #### L 500.4050, L100.0100 ####[facility] [address] [place], [address] Internal Medicine Office Vis iton 11-04-2024 Internal Medicine Office Visit [facility] Internal Medicine [address] [place] [address] OFFICE VISIT Date of Service: 11/05/24 MR#: [id number] Acct: [id number] Name: MALLORY PEREZ Rep #: [id number] : 1940 Provider: Dr. 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 [facility] Medical History Uterine cancer Sciatica Scoliosis Osteoporosis Essential hypertension Pure hypercholesterolemia Hiatal hernia Family history of hypertension Atherosclerotic heart disease of [place] coronary artery without angina pectoris Premature ventricular [...] prescribed wi (more content not included)... Normal [facility] Bone density reportOrdered B y: Jim Lainez on 05-22-2024 Study report Skeletal system DXA [facility] Imaging Services [address] [place] [address] Dexa Bone Density Study MR#: [id number] Acct: [id number] Name: MALLORY PEREZ Rep #: [id number] : 1940 F 83 From: Rajinder Lainez MD PCP: Dr. Sherley Malik MD Status: REG CLI Study:Dexa Bone Density Study Date of Exam: 05/21/24 Exam# [id number] Ordering Dr: Sherley Malik MD PROCEDURE: DEXA BONE DENSITY STUDY 05/21/2024 REASON FOR EXAM: FOLLOW UP F, age 83 y/o . Postmenopausal. TECHNIQUE: DXA scan of the lumbar spine and both hips, using make and model. REFERENCE LINKS: ISCD Adult Positions COMPARISON: Comparison is made with [...] Recommend follow-up as clinically warranted. Reading Location: [place] [address] CC: Dr. Sherley Malik MD ~ Retail Buyer: Signed [facility] Dexa Bone Density Studyon Dexa Bone Density Study [facility] Imaging Services [address] [place], [place] [id number] Dexa Bone Density Study MR#: [id number] Acct: [id number] Name: MALLORY PEREZ Rep #: [id number] : 1940 F 83 From: Jim amezcua MD PCP: Dr. Sherley Malik MD Status: REG CLI Study: Dexa Bone Density Study Date of Exam: 05/21/24 Exam# [id number] Ordering Dr: Sherley Malik MD PROCEDURE: DEXA BONE DENSITY STUDY 05/21/2024 REASON FOR EXAM: FOLLOW UP F, age 83 y/o . Postmenopausal. TECHNIQUE: DXA scan of the lumbar spine and both hips, using make and model. REFERENCE LINKS: ISCD Adult Positions COMPARISON: Comparison is made with [...] Recommend follow-up as clinically warranted. Reading Location: [place] [address] CC: Dr. Sherley Malik MD Retail Buyer: Signed Normal [facility] Absolute neutrophil countOrd ered By: Sherley Malik on 05-08-2024 Neutrophils (Bld) [#/Vol] 4.0 10*3/uL 2.0-7.7 [facility] Anion gap in Serum or Plasma Ordered By: Sherley Malik on 05-08-2024 Anion gap [Moles/Vol] 12 mmol/L 5-15 [facility] BUN/creatinine ratioOrdered By: Sherley Malik on 05-08-2024 Urea nitrogen/Creatinine [Mass ratio] 17.0 mg/mg 10-20 [facility] Basophil percentageOrdered B y: Sherley Malik on 05-08-2024 Basophils/100 WBC (Bld) 0.9 % 0-1 [facility] Bilirubin, totalOrdered By: Sherley Malik on 05-08-2024 Bilirubin [Mass/Vol] 0.60 mg/dL 0.00-1.30 [facility] CBC W/Diff, Automatedon Absolute Lymph 3.26 X10 3/uL Normal 0.83-4.51 [facility] Comment on above: Performed By: #### L 500.4050, L500.4100, L100.0100, L503.0106, L506.1001, L501.9520 #### [facility] [address] [place], [address] Absolute Neut 4.0 X10 3/uL Normal 2.0-7.7 [facility] Comment on above: Performed By: #### L 500.4050, L500.4100, L100.0100, L503.0106, L506.1001, L501.9520 #### [facility] [address] [place], [address] Basophils/100 WBC (Bld) 0.9 % Normal 0-1 [facility] Comment on above: Performed By: #### L 500.4050, L500.4100, L100.0100, L503.0106, L506.1001, L501.9520 #### [facility] [address] [place], [address] Eosinophils/100 WBC (Bld) 2.3 % Normal 0-5 [facility] Comment on above: Performed By: #### L 500.4050, L500.4100, L100.0100, L503.0106, L506.1001, L501.9520 #### [facility] [address] [place], [address] Erythrocyte distribution width (RBC) [Ratio] 12.1 % Normal 11.6-14.6 [facility] Comment on above: Performed By: #### L 500.4050, L500.4100, L100.0100, L503.0106, L506.1001, L501.9520 #### [facility] [address] [place], [address] Hematocrit (Bld) [Volume fraction] 34.2 % Low 37-47 [facility] Comment on above: Performed By: #### L 500.4050, L500.4100, L100.0100, L503.0106, L506.1001, L501.9520 #### [facility] [address] [place], [address] Hemoglobin (Bld) [Mass/Vol] 11.6 g/dL Low 12.0-15.0 [facility] Comment on above: Performed By: #### L 500.4050, L500.4100, L100.0100, L503.0106, L506.1001, L501.9520 #### [facility] [address] [place], [address] IG% 0.400 Normal 0.0-0.9 [facility] Comment on above: Result Comment: IG% - Immature Granulocytes (promyelocytes, myelocytes and metamyelocytes) > 1% indicates that a LEFT SHIFT is Present. Performed By: #### L 500.4050, L500.4100, L100.0100, L503.0106, L506.1001, L501.9520 #### [facility] [address] [place], [address] Lymphocytes/100 WBC (Bld) 40.0 % Normal 19-41 [facility] Comment on above: Performed By: #### L 500.4050, L500.4100, L100.0100, L503.0106, L506.1001, L501.9520 #### [facility] [address] [place], [address] MCH (RBC) [Entitic mass] 32.0 pg Normal 27.0-32.0 [facility] Comment on above: Performed By: #### L 500.4050, L500.4100, L100.0100, L503.0106, L506.1001, L501.9520 #### [facility] [address] [place], [address] MCHC (RBC) [Mass/Vol] 33.9 g/dL Normal 32-36 [facility] Comment on above: Performed By: #### L 500.4050, L500.4100, L100.0100, L503.0106, L506.1001, L501.9520 #### [facility] [address] [place], [address] MCV (RBC) [Entitic vol] 94.2 fL Normal 81-99 [facility] Comment on above: Performed By: #### L 500.4050, L500.4100, L100.0100, L503.0106, L506.1001, L501.9520 #### [facility] [address] [place], [address] Monocytes/100 WBC (Bld) 7.7 % Normal 0-10 [facility] Comment on above: Performed By: #### L 500.4050, L500.4100, L100.0100, L503.0106, L506.1001, L501.9520 #### [facility] [address] [place], [address] Neutrophils/100 WBC (Bld) 48.7 % Normal 47-70 [facility] Comment on above: Performed By: #### L 500.4050, L500.4100, L100.0100, L503.0106, L506.1001, L501.9520 #### [facility] [address] [place], [address] Nucleated RBC (Bld) [#/Vol] 0 10*3/uL Normal 0-5 [facility] Comment on above: Performed By: #### L 500.4050, L500.4100, L100.0100, L503.0106, L506.1001, L501.9520 #### [facility] [address] [place], [address] Platelet mean volume (Bld) [Entitic vol] 10.6 fL Normal 6.2-12.0 [facility] Comment on above: Performed By: #### L 500.4050, L500.4100, L100.0100, L503.0106, L506.1001, L501.9520 #### [facility] [address] [place], [address] Platelets (Bld) [#/Vol] 207 10*3/uL Normal 150-450 [facility] Comment on above: Performed By: #### L 500.4050, L500.4100, L100.0100, L503.0106, L506.1001, L501.9520 #### [facility] [address] [place], [address] RBC (Bld) [#/Vol] 3.63 10*6/uL Low 4.2-5.4 [facility] Comment on above: Performed By: #### L 500.4050, L500.4100, L100.0100, L503.0106, L506.1001, L501.9520 #### [facility] [address] [place], [address] RDW SD 42.3 fl Normal 35.1-43.9 [facility] Comment on above: Performed By: #### L 500.4050, L500.4100, L100.0100, L503.0106, L506.1001, L501.9520 #### [facility] [address] [place], [address] WBC (Bld) [#/Vol] 8.2 10*3/uL Normal 4.4-11.0 [facility] Comment on above: Performed By: #### L 500.4050, L500.4100, L100.0100, L503.0106, L506.1001, L501.9520 #### [facility] [address] [place], [address] Calculated very low density lipoprotein (VLDL) cholesterol measurementOrdered By: Sherley Malik on 05-08-2024 VLDL Cholesterol 23 mg/dL 5-40 [facility] Carbon dioxide, total [Moles /volume] in Central venous bloodOrdered By: Sherley Malik on 05-08-2024 CO2 [Moles/Vol] 24.3 mmol/L 21.0-32.0 [facility] Chloride assayOrdered By: Kosta Malik on 05-08-2024 Chloride [Moles/Vol] 103 mmol/L 98-108 [facility] Comprehensive Metabolic Prof ilon 05-08-2024 Albumin [Mass/Vol] 4.2 g/dL Normal 3.4-4.8 [facility] Comment on above: Performed By: #### L 500.4050, L500.4100, L100.0100, L503.0106, L506.1001, L501.9520 #### [facility] [address] [place], [address] Albumin/Globulin [Mass ratio] 1.4 {ratio} Normal 0.9-2.4 [facility] Comment on above: Performed By: #### L 500.4050, L500.4100, L100.0100, L503.0106, L506.1001, L501.9520 #### [facility] [address] [place], [address] ALK PHOS 74 U/L Normal 35-104 [facility] Comment on above: Performed By: #### L 500.4050, L500.4100, L100.0100, L503.0106, L506.1001, L501.9520 #### [facility] [address] [place], [address] ALT [Catalytic activity/Vol] 20 U/L Normal <=34 [facility] Comment on above: Performed By: #### L 500.4050, L500.4100, L100.0100, L503.0106, L506.1001, L501.9520 #### [facility] [address] [place], [address] AST [Catalytic activity/Vol] 27 U/L Normal <=31 [facility] Comment on above: Performed By: #### L 500.4050, L500.4100, L100.0100, L503.0106, L506.1001, L501.9520 #### [facility] [address] [place], [address] Bilirubin [Mass/Vol] 0.60 mg/dL Normal 0.00-1.30 [facility] Comment on above: Performed By: #### L 500.4050, L500.4100, L100.0100, L503.0106, L506.1001, L501.9520 #### [facility] [address] [place], [address] BUN/CRE 17.0 RATIO Normal 10-20 [facility] Comment on above: Performed By: #### L 500.4050, L500.4100, L100.0100, L503.0106, L506.1001, L501.9520 #### [facility] [address] [place], [address] Calcium [Mass/Vol] 9.9 mg/dL Normal 7.6-11.0 [facility] Comment on above: Performed By: #### L 500.4050, L500.4100, L100.0100, L503.0106, L506.1001, L501.9520 #### [facility] [address] [place], [address] Chloride [Moles/Vol] 103 mmol/L Normal 98-108 [facility] Comment on above: Performed By: #### L 500.4050, L500.4100, L100.0100, L503.0106, L506.1001, L501.9520 #### [facility] [address] [place], [address] CO2 [Moles/Vol] 24.3 mmol/L Normal 21.0-32.0 [facility] Comment on above: Performed By: #### L 500.4050, L500.4100, L100.0100, L503.0106, L506.1001, L501.9520 #### [facility] [address] [place], [address] Creatinine [Mass/Vol] 1.79 mg/dL High 0.70-1.20 [facility] Comment on above: Performed By: #### L 500.4050, L500.4100, L100.0100, L503.0106, L506.1001, L501.9520 #### [facility] [address] [place], [address] GAP 12 Normal 5-15 [facility] Comment on above: Performed By: #### L 500.4050, L500.4100, L100.0100, L503.0106, L506.1001, L501.9520 #### [facility] [address] [place], [address] GFR/1.73 sq M.predicted among non-blacks MDRD (S/P/Bld) [Vol rate/Area] 28 mL/min/{1.73_m2} Low >60 [facility] Comment on above: Result Comment: mL/m in/1.73m2 CKD-EPI Creatinine Equation (2020) Performed By: #### L 500.4050, L500.4100, L100.0100, L503.0106, L506.1001, L501.9520 #### [facility] [address] [place], [address] Globulin (S) [Mass/Vol] 3.0 g/dL Normal 2.2-4.2 [facility] Comment on above: Performed By: #### L 500.4050, L500.4100, L100.0100, L503.0106, L506.1001, L501.9520 #### [facility] [address] [place], [address] Glucose [Mass/Vol] 104 mg/dL High 70-99 [facility] Comment on above: Performed By: #### L 500.4050, L500.4100, L100.0100, L503.0106, L506.1001, L501.9520 #### [facility] [address] [place], [address] Potassium [Moles/Vol] 3.8 mmol/L Normal 3.3-5.1 [facility] Comment on above: Performed By: #### L 500.4050, L500.4100, L100.0100, L503.0106, L506.1001, L501.9520 #### [facility] [address] [place], [address] Sodium [Moles/Vol] 139 mmol/L Normal 133-145 [facility] Comment on above: Performed By: #### L 500.4050, L500.4100, L100.0100, L503.0106, L506.1001, L501.9520 #### [facility] [address] [place], [address] T PROT 7.2 g/dL Normal 5.9-8.4 [facility] Comment on above: Performed By: #### L 500.4050, L500.4100, L100.0100, L503.0106, L506.1001, L501.9520 #### [facility] [address] [place], [address] Urea nitrogen [Mass/Vol] 30 mg/dL High 4-19 [facility] Comment on above: Performed By: #### L 500.4050, L500.4100, L100.0100, L503.0106, L506.1001, L501.9520 #### [facility] [address] [place], [address] Eosinophil percentageOrdered By: Sherley Malik on 05-08-2024 Eosinophils/100 WBC (Bld) 2.3 % 0-5 [facility] Erythrocyte distribution wid th (RBC) [Ratio]Ordered By: Sherley Malik on 05-08-2024 Erythrocyte distribution width (RBC) [Entitic vol] 42.3 fL 35.1-43.9 [facility] Erythrocyte distribution wid th ratioOrdered By: Sherley Malik on 05-08-2024 Erythrocyte distribution width (RBC) [Ratio] 12.1 % 11.6-14.6 [facility] GFR/1.73 sq M.predicted sergey g non-blacks MDRD (S/P/Bld) [Vol rate/Area]Ordered By: Sherley Malik on 05-08-2024 Estimated GFR (MDRD) Non-Af Amer 28 Low >60 [facility] Comment on above: mL/min/1.73m2 CKD-EP I Creatinine Equation (2020) Hematocrit Auto (Bld) [Volum e fraction]Ordered By: Sherley Malik on 05-08-2024 Hematocrit (Bld) [Volume fraction] 34.2 % Low 37-47 [facility] Hemoglobin measurementOrdere d By: Sherley Malik on 05-08-2024 Hemoglobin (Bld) [Mass/Vol] 11.6 g/dL Low 12.0-15.0 [facility] Immature granulocytes/100 WB C Auto (Bld)Ordered By: Sherley Malik on 05-08-2024 Immature granulocytes/100 WBC (Bld) 0.400 % 0.0-0.9 [facility] Comment on above: IG% - Immature Granu locytes (promyelocytes, myelocytes and metamyelocytes) > 1% indicates that a LEFT SHIFT is Present. L503.0106on 05-08-2024 Cobalamin (Vitamin B12) [Mass/Vol] 294 pg/mL Normal 180-914 [facility] Comment on above: Performed By: #### L 500.4050, L500.4100, L100.0100, L503.0106, L506.1001, L501.9520 #### [facility] [address] [place], [address] L506.1001on 05-08-2024 Vitamin D 25-OH 70.4 ng/mL Normal 30-100 [facility] Comment on above: Result Comment: Cathleen min D Status Deficiency: <20 ng/mL (50nmol/L) Insufficiency: 20-30 ng/mL (50-75 nmol/L) Sufficiency: 30-100 ng/mL (75-250 nmol/L) Toxicity: >100 ng/mL (>250 nmol/L) Performed By: #### L 500.4050, L500.4100, L100.0100, L503.0106, L506.1001, L501.9520 ####[facility] [address] [place], [address] LDL calc ser/plasOrdered By: Sherley Malik on 05-08-2024 LDL Cholesterol, Calculated 66 mg/dL [facility] Comment on above: Unnozwudnj=302-671 m g/dL & Higher Grmx=253 mg/dL or greater Laboratory - Chemistry and C hemistry - challengeOrdered By: Sherley Malik on 05-08-2024 AST [Catalytic activity/Vol] 27 U/L <32 [facility] Lipid Profileon 05-08-2024 CHOL:HDL 2.37 Normal [facility] Comment on above: Performed By: #### L 500.4050, L500.4100, L100.0100, L503.0106, L506.1001, L501.9520 #### [facility] [address] [place], [address] Cholesterol [Mass/Vol] 153 mg/dL Normal <=200 [facility] Comment on above: Result Comment: Chol esterol level, Desirable <200 mg/dL Borderline high cholesterol 200-239 mg/dL High cholesterol >=240 mg/dL Recommendations of the NCEP Adult Treatment Panel for the following risk-cutoff thresholds for the [place] population. Performed By: #### L 500.4050, L500.4100, L100.0100, L503.0106, L506.1001, L501.9520 #### [facility] [address] [place], [address] Cholesterol in HDL [Mass/Vol] 65 mg/dL Normal [facility] Comment on above: Result Comment: Lilli onal Cholesterol Education Program (NCEP) guidelines: <40 mg/dL: Low HDL-cholesterol (major risk factor for CHD) >= 60 mg/dL: High HDL-cholesterol (negative risk factor for CHD) HDL-cholesterol is affected by a number of factors, e.g. smoking, exercise, hormones, sex and age. Performed By: #### L 500.4050, L500.4100, L100.0100, L503.0106, L506.1001, L501.9520 #### [facility] [address] [place], [address] Cholesterol in LDL [Mass/Vol] 66 mg/dL Normal [facility] Comment on above: Result Comment: Bord ianulk=930-050 mg/dL Higher Ovae=888 mg/dL or greater Performed By: #### L 500.4050, L500.4100, L100.0100, L503.0106, L506.1001, L501.9520 #### [facility] [address] [place], [address] Cholesterol in VLDL [Mass/Vol] 23 mg/dL Normal 5-40 [facility] Comment on above: Performed By: #### L 500.4050, L500.4100, L100.0100, L503.0106, L506.1001, L501.9520 #### [facility] [address] [place], [address] Triglyceride [Mass/Vol] 114 mg/dL Normal [facility] Comment on above: Result Comment: The drugs N-Acetylcysteine and Metamizole may falsely depress this assay. Normal range: <150 mg/dL Borderline High: 150-199 mg/dL High: 200-499 mg/dL Very High: >500 mg/dL Performed By: #### L 500.4050, L500.4100, L100.0100, L503.0106, L506.1001, L501.9520 #### [facility] [address] [place], [address] Lymphocytes Auto (Unsp spec) [#/Vol]Ordered By: Sherley Malik on 05-08-2024 Lymphocytes (Bld) [#/Vol] 3.26 10*3/uL 0.83-4.51 [facility] Lymphocytes/100 WBC Auto (Un sp spec)Ordered By: Sherley Malik on 05-08-2024 Lymphocytes/100 WBC (Bld) 40.0 % 19-41 [facility] MCV (mean corpuscular volume ) determinationOrdered By: Sherley Malik on 05-08-2024 MCV (RBC) [Entitic vol] 94.2 fL 81-99 [facility] Mean corpuscular hemoglobin (MCH) determinationOrdered By: Sherley Malik on 05-08-2024 MCH (RBC) [Entitic mass] 32.0 pg 27.0-32.0 [facility] Mean corpuscular hemoglobin concentration (MCHC) determinationOrdered By: Sherley Malik on 05-08-2024 MCHC (RBC) [Mass/Vol] 33.9 g/dL 32-36 [facility] Mean platelet volume determi nationOrdered By: Sherley Malik on 05-08-2024 Platelet mean volume (Bld) [Entitic vol] 10.6 fL 6.2-12.0 [facility] Monocyte percentageOrdered B y: Sherley Malik on 05-08-2024 Monocytes/100 WBC (Bld) 7.7 % 0-10 [facility] Neutrophil percentageOrdered By: Sherley Malik on 05-08-2024 Neutrophils/100 WBC (Bld) 48.7 % 47-70 [facility] Nucleated red blood cell per centageOrdered By: Sherley Malik on 05-08-2024 Nucleated RBC/100 WBC (Bld) [Ratio] 0 % 0-5 [facility] Platelet countOrdered By: Kosta Malik on 05-08-2024 Platelets (Bld) [#/Vol] 207 10*3/uL 150-450 [facility] Potassium (Unsp spec) [Mass/ Vol]Ordered By: Sherley Malik on 05-08-2024 Potassium [Moles/Vol] 3.8 mmol/L 3.3-5.1 [facility] RBC Auto (Bld) [#/Vol]Ordere d By: Sherley Malik on 05-08-2024 RBC (Bld) [#/Vol] 3.63 10*6/uL Low 4.2-5.4 [facility] Screening total cholesterol/ high density lipoprotein (HDL) cholesterol ratioOrdered By: Sherley Malik on 05-08-2024 Cholesterol.total/Subha sterol in HDL [Mass ratio] 2.37 {ratio} [facility] Serum creatinine measurement (mass/volume)Ordered By: Sherley Malik on 05-08-2024 Creatinine [Mass/Vol] 1.79 mg/dL High 0.70-1.20 [facility] Serum globulin measurementOr dered By: Sherley Malik on 05-08-2024 Globulin (S) [Mass/Vol] 3.0 g/dL 2.2-4.2 [facility] Serum glucose measurement (m ass/volume)Ordered By: Sherley Malik on 05-08-2024 Glucose [Mass/Vol] 104 mg/dL High 70-99 [facility] Serum or plasma alanine deal otransferase (ALT) measurementOrdered By: Sherley Malik on 05-08-2024 ALT [Catalytic activity/Vol] 20 U/L <35 [facility] Serum or plasma albumin alex urement (mass/volume)Ordered By: Sherley Malik on 05-08-2024 Albumin [Mass/Vol] 4.2 g/dL 3.4-4.8 [facility] Serum or plasma albumin/glob ulin mass ratioOrdered By: Sherley Malik on 05-08-2024 Albumin/Globulin [Mass ratio] 1.4 {ratio} 0.9-2.4 [facility] Serum or plasma alkaline mason sphatase measurementOrdered By: Sherley Malik on 05-08-2024 ALP [Catalytic activity/Vol] 74 U/L 35-104 [facility] Serum or plasma calcium alex urement (mass/volume)Ordered By: Sherley Malik on 05-08-2024 Calcium [Mass/Vol] 9.9 mg/dL 7.6-11.0 [facility] Serum or plasma cholesterol in HDL measurement (mass/volume)Ordered By: Sherley Malik on 05-08-2024 Cholesterol in HDL [Mass/Vol] 65 mg/dL >40 [facility] Comment on above: National Cholesterol Education Program (NCEP) guidelines:<40 mg/dL: Low HDL-cholesterol (major risk factor for CHD)>= 60 mg/dL: High HDL-cholesterol (negative risk factor for CHD)HDL-cholesterol is affected by a number of factors, e.g. smoking, exercise, hormones, sex and age. Serum or plasma cholesterol measurement (mass/volume)Ordered By: Sherley Malik on 05-08-2024 Cholesterol [Mass/Vol] 153 mg/dL <201 [facility] Comment on above: Cholesterol level, D esirable <200 mg/dLBorderline high cholesterol 200-239 mg/dLHigh cholesterol >=240 mg/dLRecommendations of the NCEP Adult Treatment Panel for the following risk-cutoff thresholds for the [place] population. Serum or plasma urea nitroge n measurement (mass/volume)Ordered By: Sherley Malik on 05-08-2024 Urea nitrogen [Mass/Vol] 30 mg/dL High 4-19 [facility] Sodium levelOrdered By: Lex Malik on 05-08-2024 Sodium [Moles/Vol] 139 mmol/L 133-145 [facility] TSH DL <= 0.005 mIU/L QnOrde red By: Sherley Malik on 05-08-2024 Thyroid Stimulating Hormone (TSH) 1.880 uIU/mL 0.300-4.200 [facility] Thyroid Stim Hormone (TSH)on 05-08-2024 TSH 1.880 uIU/mL Normal 0.300-4.200 [facility] Comment on above: Performed By: #### L 500.4050, L500.4100, L100.0100, L503.0106, L506.1001, L501.9520 #### [facility] [address] [place], [address] Total proteinOrdered By: Matt Malik on 05-08-2024 Protein [Mass/Vol] 7.2 g/dL 5.9-8.4 [facility] Triglycerides measurementOrd ered By: Sherley Malik on 05-08-2024 Triglyceride [Mass/Vol] 114 mg/dL <199 [facility] Comment on above: The drugs N-Acetylcy steine and Metamizole may falsely depress this assay. Normal range: <150 mg/dLBorderline High: 150-199 mg/dLHigh: 200-499 mg/dLVery High: >500 mg/dL Vitamin B12 ser/plasOrdered By: Sherley Malik on 05-08-2024 Cobalamin (Vitamin B12) [Mass/Vol] 294 pg/mL 180-914 [facility] Vitamin D, 25-hydroxyOrdered By: Sherley Malik on 05-08-2024 Vitamin D 25-Hydroxy 70.4 ng/mL 30-100 [facility] Comment on above: Vitamin D StatusDefi ciency: <20 ng/mL (50nmol/L)Insufficiency: 20-30 ng/mL (50-75 nmol/L)Sufficiency: 30-100 ng/mL (75-250 nmol/L)Toxicity: >100 ng/mL (>250 nmol/L) White blood cell (WBC) count Ordered By: Sherley Malik on 05-08-2024 WBC (Bld) [#/Vol] 8.2 10*3/uL 4.4-11.0 [facility] Internal Medicine Office Vis iton 05-05-2024 Internal Medicine Office Visit [facility] [address] [place] [address] [place] [address] OFFICE VISIT Date of Service: 05/06/24 MR#: [id number] Acct: [id number] Name: MALLORY PEREZ Rep #: [id number] : 1940 Provider: Dr. 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 HPI HPI Chief Complaint: establishing care Details: [...] [facility] (more content not included)... Normal [facility] Cardiology Visit Reporton Cardiology Visit Report [facility] [address] [place] [address] OFFICE VISIT Date of Service: 02/22/24 MR#: [id number] Acct: [id number] Name: MALLORY PEREZ Rep #: [id number] : 1940 Provider: Dr. 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 Normal [facility] STREP A MOLECULAR (POC)on Procedural Control Valid [facility] Strep A (POCT) Negative Negative [facility] Basophil percentageon 2021 Bilirubin [Mass/Vol] 0.50 mg/dL 0.20-1.00 [facility] Work Phone: Comment on above: For patients on eltr ombopag therapy, use of Dimension [place] TBIL is not recommended. Cholesterol [Mass/Vol] 140 mg/dL <200 [facility] Work Phone: Comment on above: <200 mg/dL Desirable 200-240 mg/dL Borderline >240 mg/dL High Risk Protein [Mass/Vol] 7.2 g/dL 6.4-8.2 [facility] Work Phone: Triglyceride [Mass/Vol] 88 mg/dL <199 [facility] Work Phone: Comment on above: The drugs N-Acetylcy steine and Metamizole may falsely depress this assay.Serum Triglycerides Reference Interval Normal <150 mg/dL Borderline high 150 - 199 mg/dL High 200 - 499 mg/dL Very High > or = 500 mg/dL Direct bilirubinon 2 Bilirubin.direct [Mass/Vol] 0.15 mg/dL 0.00-0.30 [facility] Work Phone: Laboratory - Chemistry and C hemistry - challengeon 11-23-2021 ALP [Catalytic activity/Vol] 77 U/L 45-117 [facility] Work Phone: ALT [Catalytic activity/Vol] 26 U/L 13-56 [facility] Work Phone: Globulin (S) [Mass/Vol] 3.7 g/dL 2.2-4.2 [facility] Work Phone: Serum or plasma albumin alex urement (mass/volume)on 11-23-2021 Albumin [Mass/Vol] 3.5 g/dL 3.2-5.0 [facility] Work Phone: Serum or plasma cholesterol in HDL measurement (mass/volume)on 11-23-2021 Cholesterol in HDL [Mass/Vol] 61 mg/dL >40 [facility] Work Phone: Comment on above: The drugs N-Acetylcy steine and Metamizole may falsely depress this assay. Reference Range HDL <40 mg/dL Low HDL Cholesterol HDL >or= 60 mg/dL High HDL Cholesterol Serum or plasma cholesterol in VLDL measurement (mass/volume)on 11-23-2021 Cholesterol in VLDL [Mass/Vol] 18 mg/dL 5-40 [facility] Work Phone: Serum or plasma low density lipoprotein (LDL) cholesterol measurement (mass/volume)on 11-23-2021 Cholesterol in LDL [Mass/Vol] 61 mg/dL 0-130 [facility] Work Phone: Thin prep Papanicolaou smear with manual screeningon 11-23-2021 Thin prep Papanicolaou smear with manual screening 21 U/L 15-37 [facility] Work Phone: Basophil percentageon 2021 Bilirubin [Mass/Vol] 0.60 mg/dL 0.20-1.00 [facility] Work Phone: Comment on above: For patients on eltr ombopag therapy, use of Dimension [place] TBIL is not recommended. Cholesterol [Mass/Vol] 148 mg/dL <200 [facility] Work Phone: Comment on above: <200 mg/dL Desirable 200-240 mg/dL Borderline >240 mg/dL High Risk Protein [Mass/Vol] 7.0 g/dL 6.4-8.2 [facility] Work Phone: Triglyceride [Mass/Vol] 103 mg/dL [facility] Work Phone: Comment on above: The drugs N-Acetylcy steine and Metamizole may falsely depress this assay.Serum Triglycerides Reference Interval Normal <150 mg/dL Borderline high 150 - 199 mg/dL High 200 - 499 mg/dL Very High > or = 500 mg/dL Direct bilirubinon 2 Bilirubin.direct [Mass/Vol] 0.14 mg/dL 0.00-0.30 [facility] Work Phone: Laboratory - Chemistry and C hemistry - challengeon 05-31-2021 ALP [Catalytic activity/Vol] 73 U/L 45-117 [facility] Work Phone: ALT [Catalytic activity/Vol] 28 U/L 13-56 [facility] Work Phone: Globulin (S) [Mass/Vol] 3.5 g/dL 2.2-4.2 [facility] Work Phone: Serum or plasma albumin alex urement (mass/volume)on 05-31-2021 Albumin [Mass/Vol] 3.5 g/dL 3.2-5.0 [facility] Work Phone: Serum or plasma cholesterol in HDL measurement (mass/volume)on 05-31-2021 Cholesterol in HDL [Mass/Vol] 57 mg/dL [facility] Work Phone: Comment on above: The drugs N-Acetylcy steine and Metamizole may falsely depress this assay. Reference Range HDL <40 mg/dL Low HDL Cholesterol HDL >or= 60 mg/dL High HDL Cholesterol Serum or plasma cholesterol in VLDL measurement (mass/volume)on 05-31-2021 Cholesterol in VLDL [Mass/Vol] 21 mg/dL 5-40 [facility] Work Phone: Serum or plasma low density lipoprotein (LDL) cholesterol measurement (mass/volume)on 05-31-2021 Cholesterol in LDL [Mass/Vol] 70 mg/dL 0-130 [facility] Work Phone: Thin prep Papanicolaou smear with manual screeningon 05-31-2021 Thin prep Papanicolaou smear with manual screening 24 U/L 15-37 [facility] Work Phone: Office Visit: [facility] 10-08-19 17 Documentation of current medications (procedure) Done Invalid Interpretation Code [employer] Work Phone: [phone] Fall risk assessment No Invalid Interpretation Code [facility] Phone: [phone] Lab Report: Lipid Profileon 09-23-2016 Cholesterol 128 mg/dL Invalid Interpretation Code 200 [employer] Work Phone: [phone] HDL Cholesterol 59 mg/dL Invalid Interpretation Code [facility] Phone: [phone] LDL Cholesterol 47 mg/dL Invalid Interpretation Code 0-130 [facility] Work Phone: [phone] Triglyceride 112 mg/dL Invalid Interpretation Code [employer] Work Phone: [phone] very low density lipoproteins 22 mg/dL Invalid Interpretation Code 5-40 [facility] Phone: [phone] Lab Report: Liver Profileon 09-23-2016 Alanine aminotransferase (ALT) 26 U/L Invalid Interpretation Code 12-78 [facility] Work Phone: [phone] Albumin 3.8 g/dL Invalid Interpretation Code 3.4-5.0 [employer] Work Phone: [phone] Alkaline phosphatase (ALP) 79 U/L Invalid Interpretation Code 45-117 [employer] [facility] Phone: [phone] ALP enzyme act/vol (Bld) 79 U/L 45-117 [facility] Work Phone: [phone] Aspartate aminotransferase (AST) 27 U/L Invalid Interpretation Code 15-37 [facility] Work Phone: [phone] Bilirubin (direct) 0.15 mg/dL Invalid Interpretation Code 0.00-0.30 [facility] Work Phone: [phone] Bilirubin (total) 0.70 mg/dL Invalid Interpretation Code 0.20-1.00 [facility] Work Phone: [phone] Globulin 3.3 g/dL Invalid Interpretation Code 2.3-3.5 [facility] Work Phone: [phone] Globulin mass conc (S) 3.3 g/dL 2.3-3.5 [facility] Work Phone: [phone] Protein 7.1 g/dL Invalid Interpretation Code 6.4-8.2 [facility] Work Phone: [phone] CNOVon 09-13-2016 CNOV Office Visit (BETTYPOB) MALLORY PEREZ ([id number]) 1940 [facility] Time Provider Department09/13/16 1:00 PM YASH JAIN During your visit today, we recorded the following information about you: Temperature Pulse Respiration Blood pressure 98 degrees 62/minute 16/minute 142/80 Weight Height 56.2 kg 1.613 Clark Jain MD 09/13/2016 1:29 PM SignedPROBLEM: Stage IA FIGO 1 endometrial cancerCurrent Outpatient Prescriptions:KLOR-CON 10 10 mEq tablet Disp: Rfl:vit D3-folic lacf-O2-A0-B12 2,000-800-0.32 unit-mcg-mg tab Take by mouth.Disp: Rfl:atenolol [...] FIGO 1 uterine cancer, MSI nlLimited staging ([facility]) 08/2011FH : uterine cancer mother, sister, MGMPLAN:No clinical evidence of disease recurrenceFH uterine cancer, genetic testing recommended, pt declinedMammo 12/2014, follow up scheduled for Oct 2016Colonoscopy 07/2015 due at 3yBMD 09/2015Continue surveillanceRTC 1Matthew Nova Provider: SELF [200]Allergies As of Date: 09/13/2016(No Known Allergies)Date Reviewed: 09/13/2016Reviewed by: Emerald (Sy) Franklyn - Fully AssessedReason for Visit: Follow [...] TABLET Take 50 mcg by mouth once osmani* VALSARTAN 160 MG-HYDROCHLOROT* Take 1 tablet by [...] notes this encounter KLOR-CON 10 ORAL >> Emerald (Sy) Franklyn 09/13/2016 1:13 PM >> FRANKLYN DOBBINS summerSep 13, 2016 1:13 PM Duplicate Summer (Sy) Franklyn NITROGLYCERIN 0.4 MG SUBLINGUAL TABLET >> Emerald (Rno Estes 09/13/2016 1:12 PM >> FRANKLYN DOBBINS, summerSep 13, 2016 1:12 PM Duplicate Summer ([facility]) FranklynProblem List As Of Date 09/13/2016 Noted Resolved Gallbladder sludge [K82.8] INVALID FOR* Bloating [R14.0] INVALID FOR* Belching [R14.2] INVALID FOR* Chronic cholecystitis without calculus [K81.1] INVALID FOR* Uterine cancer (HCC) [C55] INVALID FOR*Disposition: Return in about 1 year (around 09/13/2017).Follow-up and Disposition History RecordedEncounter Number: [id number] Status:Closed by YASH JAIN MD on 09/13/16 [facility] PROGRESSon 09-13-2016 PROGRESS HNO ID: [id number]: Yash Penningtonervice: (none)Author Type: PhysicianType: Progress NotesFiled: 09/13/2016 1:29 PMNote Text:PROBLEM: Stage IA FIGO 1 endometrial cancerCurrent Outpatient Prescriptions:KLOR-CON 10 10 mEq tablet Disp: Rfl:vit D3-folic mgmb-O0-Y0-B12 2,000-800-0.32 unit-mcg-mg tab Take by mouth.Disp: Rfl:atenolol [...] FIGO 1 uterine cancer, MSI nlLimited staging ([facility]) 08/2011FH : uterine cancer mother, sister, MGMPLAN:No clinical evidence of disease recurrenceFH uterine cancer, genetic testing recommended, pt declinedMammo 12/2014, follow up scheduled for Oct 2016Colonoscopy 07/2015 due at 3yBMD 09/2015Continue surveillanceRTC 1Elba Jain MD Normal [facility] Lab Report: T4 Total, Thyrox inon 04-01-2016 Thyroxine (T4) 12.0 ug/dL Invalid Interpretation Code 4.8-13.9 [employer] Work Phone: Lab Report: Thyroid Stim Hor zaria (TSH)on 04-01-2016 Thyroid stimulating hormone (TSH) 0.75 u[iU]/mL Invalid Interpretation Code 0.358-3.74 [facility] Work Phone: [phone] Office Visit: [facility] 04-01-19 17 Documentation of current medications (procedure) Done Invalid Interpretation Code [facility] Work Phone: [phone] Protein mass conc Done [employer] Work Phone: [phone] 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 Left ventricular Ejection fraction 65 % Invalid Interpretation Code [facility] Work Phone: [phone] Office Visit: [facility] 04-16-19 16 Fall risk assessment Invalid Interpretation Code [facility] Work Phone: [phone] Tobacco smoking status NHIS Never smoker [employer] Work Phone: [phone] Tobacco use CPHS Never smoker Invalid Interpretation Code [employer] Work Phone: [phone] Replaced Document: Elena MARTINEZ Observationson 04-16-2015 EKG QRS axis 55 deg [facility] Work Phone: [phone] electrocardiogram interpretation Sinus Rhythm WITHIN NORMAL LIMITS Invalid Interpretation Code [employer] Work Phone: [phone] GE use only - for [employer] import when terms are not otherwise specified 381 ms Invalid Interpretation Code [employer] Work Phone: [phone] Interpretation Sinus Rhythm WITHIN NORMAL LIMITS [employer] Work Phone: [phone] P [place] 48 deg [employer] Work Phone: [phone] P wave axis, electrocardiogram 48 deg Invalid Interpretation Code [facility] Work Phone: [phone] NE Interval 180 ms [facility] Work Phone: [phone] NE interval, electrocardiogram 180 ms Invalid Interpretation Code [facility] Work Phone: [phone] Pulse (Heart Rate) 61 /min Invalid Interpretation Code [facility] Work Phone: [phone] QRS axis, electrocardiogram 55 deg Invalid Interpretation Code [facility] Work Phone: [phone] QRS Duration 82 ms [employer] Work Phone: [phone] QRS duration, electrocardiogram 82 ms Invalid Interpretation Code [facility] Work Phone: [phone] QT Interval new path ms [facility] Work Phone: [phone] QT interval, electrocardiogram new path ms Invalid Interpretation Code [facility] Work Phone: [phone] QTc Desir 381 ms [facility] Work Phone: [phone] T [place] 50 deg [facility] Work Phone: [phone] T wave axis, electrocardiogram 50 deg Invalid Interpretation Code [facility] Work Phone: [phone] Clinical Lists 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: 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 05-19-2014 aPTT 27 s Invalid Interpretation Code [facility] Work Phone: [phone] BUN/Creatinine Ratio 15 mg/mg Invalid Interpretation Code [facility] Work Phone: [phone] Calcium 10.3 mg/dL Invalid Interpretation Code [facility] Work Phone: [phone] Chloride 93 mmol/L Low [facility] Work Phone: [phone] CO2 24 mmol/L Invalid Interpretation Code [facility] Work Phone: [phone] CO2 ppres (BldV) 24 mmol/L [facility] Work Phone: [phone] Coagulation tissue factor induced in platelet poor plasma 10.7 s Invalid Interpretation Code [facility] Work Phone: [phone] Creatinine 1.15 mg/dL High [facility] Work Phone: [phone] Erythrocyte distribution width Ratio (RBC) 13.1 % [facility] Work Phone: [phone] Erythrocytes (RBC) 3.91 10*6/uL Invalid Interpretation Code [facility] Work Phone: [phone] Globulin 2.4 g/dL Invalid Interpretation Code [facility] Work Phone: [phone] Globulin mass conc (S) 2.4 g/dL [facility] Work Phone: [phone] Glucose 92 mg/dL Invalid Interpretation Code [facility] Work Phone: [phone] Glucose mass conc 92 mg/dL [facility] Work Phone: [phone] Hematocrit (HCT) 36.1 % Invalid Interpretation Code [facility] Work Phone: [phone] Hematocrit Volume Fraction (Bld) 36.1 % [facility] Work Phone: [phone] Hemoglobin (HGB) 12.3 g/dL Invalid Interpretation Code [facility] Work Phone: [phone] INR Coag RelTime (PPP) 1.0 {INR} [facility] Work Phone: [phone] INR in blood by coagulation 1.0 {INR} Invalid Interpretation Code [facility] Work Phone: [phone] LDL/HDL ratio, serum 1.2 Invalid Interpretation Code [facility] Work Phone: [phone] MCH 31.5 pg Invalid Interpretation Code [facility] Work Phone: [phone] MCH Entitic mass (RBC) 31.5 pg [facility] Work Phone: [phone] MCHC 34.1 g/dL Invalid Interpretation Code [facility] Work Phone: [phone] MCHC mass conc (RBC) 34.1 g/dL [facility] Work Phone: [phone] MCV 92 fL Invalid Interpretation Code [facility] Work Phone: [phone] MCV Entitic volume (RBC) 92 fL [facility] Work Phone: [phone] Platelets 261 10*3/mm3 Invalid Interpretation Code [facility] Work Phone: [phone] Platelets #/vol (Bld) 261 10*3/mm3 [facility] Work Phone: [phone] Potassium 4.5 mmol/L Invalid Interpretation Code [facility] Work Phone: [phone] RBC #/vol (Bld) 3.91 10*6/uL [facility] Work Phone: [phone] RDW-CA 13.1 % Invalid Interpretation Code [facility] Work Phone: [phone] Sodium 134 mmol/L Invalid Interpretation Code [facility] Work Phone: [phone] Urea nitrogen 17 mg/dL Invalid Interpretation Code [facility] Work Phone: [phone] WBC #/vol (Bld) 7.3 10*3/uL [facility] Work Phone: [phone] WBC (Leukocytes) 7.3 10*3/uL Invalid Interpretation Code [facility] Work Phone: [phone] Office Visit: [facility] 01-25-20 14 cardiac risk group C Invalid Interpretation Code [facility] Work Phone: [phone] General cardiovascular disease 10Y risk [#] [place]D'[place]ost[place] N/A Invalid Interpretation Code [facility] Work Phone: [phone] Office Visiton 07-31-2013 Tobacco smoking status NHIS Never Invalid Interpretation Code [facility] Work Phone: [phone] Clinical Lists 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: 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 01-21-2013 Anion gap 8 mmol/L Invalid Interpretation Code [facility] Work Phone: [phone] Anion gap molar conc 8 mmol/L [facility] [employer] [facility] Work Phone: [phone] Replaced Document: [facility] CG Observationson 12-03-2012 Pulse (Heart Rate) 377 ms Invalid Interpretation Code [facility] Work Phone: [phone] Lab Reporton 03-16-2011 Glucose 89 mg/dL Invalid Interpretation Code [facility] Work Phone: [phone] Glucose fasting mass conc 89 mg/dL [facility] Work Phone: [phone] MCHC 34.7 % Invalid Interpretation Code [facility] Work Phone: [phone] MCHC mass conc (RBC) 34.7 % [facility] Work Phone: [phone] Vital Signs Date Time Vital Sign Value Performing Clinician Munir neumann 11-20-2024 11:25-0400 Diastolic blood pressure 70 mm[Hg] No Primary Care Physician [facility] 11-20-2024 11:25-0400 Systolic blood pressure 160 mm[Hg] No Primary Care Physician [facility] 11-20-2024 08:16-0400 Body mass index (BMI) [Ratio] 21.2 kg/m2 No Primary Care Physician [facility] 11-20-2024 08:16-0400 Body weight 56.24 kg No Primary Care Physician [facility] 11-20-2024 08:16-0400 Heart rate 61 /min No Primary Care Physician [facility] 11-20-2024 08:16-0400 Respiratory rate 18 /min No Primary Care Physician [facility] 11-20-2024 08:16-0400 SaO2% (BldA) [Mass fraction] 98 % No Primary Care Physician [facility] 11-05-2024 11:09-0400 Body height 162.56 cm No Primary Care Physician [facility] 11-05-2024 11:09-0400 Body mass index (BMI) [Ratio] 21.1 kg/m2 No Primary Care Physician [facility] 11-05-2024 11:09-0400 Body temperature 97.6 [degF] No Primary Care Physician [facility] 11-05-2024 11:09-0400 Body weight 55.79 kg No Primary Care Physician [facility] 11-05-2024 11:09-0400 Diastolic blood pressure 82 mm[Hg] No Primary Care Physician [facility] 11-05-2024 11:09-0400 Heart rate 62 /min No Primary Care Physician [facility] 11-05-2024 11:09-0400 Respiratory rate 14 /min No Primary Care Physician [facility] 11-05-2024 11:09-0400 SaO2% (BldA) [Mass fraction] 95 % No Primary Care Physician [facility] 11-05-2024 11:09-0400 Systolic blood pressure 136 mm[Hg] No Primary Care Physician [facility] 05-21-2024 08:19-0400 Body height 162.56 cm No Primary Care Physician [facility] 05-06-2024 16:24-0400 Diastolic blood pressure 72 mm[Hg] No Primary Care Physician [facility] 05-06-2024 16:24-0400 Systolic blood pressure 124 mm[Hg] No Primary Care Physician [facility] 05-06-2024 10:50-0400 Body height 162.56 cm No Primary Care Physician [facility] 05-06-2024 10:50-0400 Body mass index (BMI) [Ratio] 20.8 kg/m2 No Primary Care Physician [facility] 05-06-2024 10:50-0400 Body temperature 96.8 [degF] No Primary Care Physician [facility] 05-06-2024 10:50-0400 Body weight 54.99 kg No Primary Care Physician [facility] 05-06-2024 10:50-0400 Heart rate 72 /min No Primary Care Physician [facility] 05-06-2024 10:50-0400 Respiratory rate 16 /min No Primary Care Physician [facility] 05-06-2024 10:50-0400 SaO2% (BldA) [Mass fraction] 96 % No Primary Care Physician [facility] 02-22-2024 09:08-0500 Body mass index (BMI) [Ratio] 19.7 kg/m2 No Primary Care Physician [facility] 02-22-2024 09:08-0500 Body weight 52.16 kg No Primary Care Physician [facility] 02-22-2024 09:08-0500 Diastolic blood pressure 70 mm[Hg] No Primary Care Physician [facility] 02-22-2024 09:08-0500 Heart rate 66 /min No Primary Care Physician [facility] 02-22-2024 09:08-0500 Respiratory rate 16 /min No Primary Care Physician [facility] 02-22-2024 09:08-0500 Systolic blood pressure 146 mm[Hg] No Primary Care Physician [facility] 06-03-2022 10:12-0400 Body temperature 99 [degF] Krislyn Aberegg PA Work Phone: [facility] 06-03-2022 10:12-0400 Body weight 52.71 kg Krislyn Aberegg PA Work Phone: [facility] 06-03-2022 10:12-0400 Diastolic blood pressure 82 mm[Hg] Krislyn Aberegg PA Work Phone: [facility] 06-03-2022 10:12-0400 Heart rate 75 /min Krislyn Aberegg PA Work Phone: [facility] 06-03-2022 10:12-0400 Respiratory rate 21 /min Krislyn Aberegg PA Work Phone: [facility] 06-03-2022 10:12-0400 SaO2% (BldA) [Mass fraction] 97 % Krislyn Aberegg PA Work Phone: [facility] 06-03-2022 10:12-0400 Systolic blood pressure 168 mm[Hg] Ramonkayejavier Marilushayy PA Work Phone: [facility] 10-07-2016 09:26-0400 BMI (Body Mass Index) 20.66 kg/m2 [facility] Work Phone: 10-07-2016 09:26-0400 BP Diastolic 76 mm[Hg] Mayra Low [facility] Work Phone: 10-07-2016 09:26-0400 BP Systolic 148 mm[Hg] Mayra Low [facility] Work Phone: 10-07-2016 09:26-0400 Height 162.56 cm Mayra Low [facility] Work Phone: 10-07-2016 09:26-0400 Pulse (Heart Rate) 64 /min Mayra Low [facility] Work Phone: 10-07-2016 09:26-0400 Respiratory Rate 18 /min [facility] Work Phone: 10-07-2016 09:26-0400 Weight 54.6 kg [facility] Work Phone: 04-01-2016 09:54-0500 BMI (Body Mass Index) 21.59 kg/m2 Nik Mcneal NP [facility] Work Phone: 04-01-2016 09:54-0500 BP Diastolic 64 mm[Hg] Nik Mcneal NP [facility] Work Phone: 04-01-2016 09:54-0500 BP Systolic 148 mm[Hg] Nik Mcneal NP [facility] Work Phone: 04-01-2016 09:54-0500 BSA (Body Surface Area) 1.61 m2 Nik Mcneal MENTAL RETARDATION NURSE [facility] Work Phone: 04-01-2016 09:54-0500 Pulse (Heart Rate) 64 /min Nik Mcneal MENTAL RETARDATION NURSE [facility] Work Phone: 04-01-2016 09:54-0500 Respiratory Rate 18 /min Nik Mcneal NP [facility] Work Phone: 04-01-2016 09:54-0500 Weight 57.06 kg Nik Mcneal NP [facility] Work Phone: 04-16-2015 09:06-0500 Heart rate 61 /min Mayra Low [facility] Work Phone: 12-03-2012 09:44-0400 Heart rate 377 ms Mayra Low [facility] Work Phone: 04-29-2011 09:23-0400 Height 162.56 cm Nik Mcneal NP [facility] Work Phone: 04-29-2011 09:23-0400 Pulse (Heart Rate) 64 /min Nik Mcneal NP [facility] Work Phone: Encounters Encounter Date Encounter Type Care Provider Facility Start: 12-17-2024 ambulatory Jalil oDuglas Facility :[facility] Start: 12-03-2024 ambulatory Sherley Lopezlay [facility] :[facility] Start: 12-03-2024 End: 12-03-2024 ambulatory Sherley King Facility:[facility] Start: 11-20-2024 End: 11-20-2024 Patient encounter procedure Jalil [place] -[facility] Work Phone: Start: 11-20-2024 End: 11-20-2024 ambulatory No Primary Care Physician -[facility] Start: 11-07-2024 End: 11-07-[address] Sherley Malik [facility] Start: 11-07-2024 End: 11-07-2024 ambulatory Sherley Lopezlay Facility:[facility] Start: 11-05-2024 End: 11-05-[address] Sherley Malik MD -[facility] Work Phone: Start: 11-05-2024 End: 11-05-2024 ambulatory No Primary Care Physician -[facility] Start: 05-21-2024 End: 05-21-2024 ambulatory No Primary Care Physician [facility] Work Phone: Start: 05-21-2024 End: 05-21-[address] Sherley Malik MD -[facility]patient [facility] Work Phone: Start: 05-21-2024 End: 05-21-2024 ambulatory [facility] Facility:[facility] Start: 05-08-2024 End: 05-08-2024 ambulatory No Primary Care Physician [facility] Work Phone: Start: 05-08-2024 End: 05-08-[address] Sherley Malik MD -Laboratory Work Phone: Start: 05-08-2024 End: 05-08-2024 ambulatory Hserley [place] Facility:[facility] Start: 05-06-2024 End: 05-06-[address] Sherley Malik MD -[facility] Work Phone: Start: 05-06-2024 End: 05-06-2024 ambulatory [facility] [place] Facility:[facility] Start: 02-22-2024 End: 02-22-[address] Teto Sharma MD -[facility] Work Phone: Start: 02-22-2024 End: 02-22-2024 ambulatory Teto Sharma Facility:[facility] Start: 06-03-2022 End: 06-03-2022 Patient encounter procedure Bertrand LUNA Work Phone: [facility] Comment on above: Sore throat (Primary Dx); URI, acute Start: 11-23-2021 End: 11-23-2021 ambulatory [facility] Work Phone: Start: 11-23-2021 End: 11-23-2021 Patient encounter procedure [facility] Start: 05-31-2021 End: 05-31-2021 Patient encounter procedure [facility] Start: 09-13-2016 End: 09-13-2016 Ambulatory YASH JAIN [facility] Start: 10-13-2015 End: 10-14-2015 Ambulatory YASH JAIN Facility:[facility] Procedures Date Procedure Procedure Detail Performing Clinician Start: 11-07-2024 Radex spine lumbosac ral 2/3 views No Primary Care Physician Start: 05-21-2024 Dual energy X-ray absorptiometry No [...] Treatment Date Care Activity Detail Author Start: 12-03-2024 Patient encounter procedure Registered Clinical -[facility] Services Work Phone: Start: 11-20-2024 Radionuclide imaging of perfusion of myocardium under exercise stress [facility] Start: 05-21-2024 DXA Bone [Mass/Area] Bone density [facility] Start: 10-07-2022 Influenza vaccination INFLUENZA (Season Ended) [facility] Start: 02-06-2022 ADVANCE DIRECTIVE DISCUSSION ADVANCE DIRECTIVE DISCUSSION [facility] Start: 02-06-2022 DEPRESSION ASSESSMENT DEPRESSION ASSESSMENT [facility] Start: 05-29-2017 End: 05-29-2017 Appointment Appointment [facility] Work Phone: Start: 04-24-2017 End: 10-07-2016 *Hepatic Function Panel *Hepatic Function Panel [facility] Work Phone: Start: 04-24-2017 End: 10-07-2016 Lipid panel [AGGREGATE] *Lipid Profile CC PCP [facility] Work Phone: Start: 11-26-2016 DIABETES SCREEN DIABETES SCREEN [facility] Start: 10-07-2016 End: 10-07-2016 Appointment Appointment [facility] Work Phone: Start: 10-07-2016 End: 10-07-2016 Follow Up Appt 6 months Follow Up Appt 6 months [facility] Work Phone: Start: 10-07-2016 End: 10-07-2016 Follow Up Appt Other Follow Up Appt Other [facility] Work Phone: Start: 10-07-2016 End: 10-07-2016 PFM PFM [facility] Work Phone: Start: 09-20-2016 End: 10-07-2016 *Hepatic Function Panel *Hepatic Function Panel [facility] Work Phone: Start: 09-20-2016 End: 10-07-2016 Lipid panel [AGGREGATE] *Lipid Profile CC PCP [facility] Work Phone: Start: 04-01-2016 End: 04-01-2016 Follow Up Appt 6 months Follow Up Appt 6 months [facility] Work Phone: Start: 04-01-2016 End: 04-01-2016 PFM PFM [facility] Work Phone: Start: 04-01-2016 End: 04-01-2016 Thyroid stimulating hormone (TSH) *TSH [facility] Work Phone: Start: 04-01-2016 End: 04-01-2016 Thyroxine (T4) *T4 (Total) [facility] Work Phone: Start: 03-16-2016 End: 03-22-2016 *Hepatic Function Panel *Hepatic Function Panel [facility] Work Phone: Start: 03-16-2016 End: 03-22-2016 Lipid panel [AGGREGATE] *Lipid Profile CC PCP [facility] Work Phone: Start: 11-06-2015 End: 09-14-2015 *Hepatic Function Panel *Hepatic Function Panel [facility] Work Phone: Start: 11-06-2015 End: 09-14-2015 Lipid panel [AGGREGATE] *Lipid Profile CC PCP [facility] Work Phone: Start: 09-21-2015 End: 09-21-2015 Follow Up Appt 6 months Follow Up Appt 6 months [facility] Work Phone: Start: 09-21-2015 End: 09-21-2015 MMM MMM [facility] Work Phone: Start: 04-16-2015 End: 04-16-2015 Electrocardiogram, complete EKG (In office) [facility] Work Phone: Start: 04-16-2015 End: 04-16-2015 Follow Up Appt 6 months Follow Up Appt 6 months [facility] Work Phone: Start: 04-16-2015 End: 04-16-2015 PFM PFM [facility] Work Phone: Start: 09-22-2014 End: 04-16-2015 *Hepatic Function Panel *Hepatic Function Panel [facility] Work Phone: Start: 09-22-2014 End: 09-22-2014 Follow Up Appt 6 months Follow Up Appt 6 months [facility] Work Phone: Start: 09-22-2014 End: 04-16-2015 Lipid panel [AGGREGATE] *Lipid Profile CC PCP [facility] Work Phone: Start: 09-22-2014 End: 09-22-2014 MMM MMM [facility] Work Phone: Start: 01-24-2014 End: 01-24-2014 Follow Up Appt 6 months Follow Up Appt 6 months [facility] Work Phone: Start: 01-24-2014 End: 01-24-2014 PFM PFM [facility] Work Phone: Start: 07-31-2013 End: 07-31-2013 Follow Up Appt 6 months Follow Up Appt 6 months [facility] Work Phone: Start: 07-31-2013 End: 07-31-2013 MMM MMM [facility] Work Phone: Start: 01-14-2013 End: 01-14-2013 Follow Up Appt Other Follow Up Appt Other [facility] Work Phone: Start: 12-03-2012 End: 12-03-2012 Electrocardiogram, complete EKG (In office) [facility] Work Phone: Start: 12-03-2012 End: 12-03-2012 Follow Up Appt 6 weeks Follow Up Appt 6 weeks [facility] Work Phone: Start: 12-03-2012 End: 12-03-2012 Follow Up Appt Other Follow Up Appt Other [facility] Work Phone: Start: 12-03-2012 End: 12-03-2012 MMM MMM [facility] Work Phone: Start: 05-14-2012 End: 12-03-2012 *Hepatic Function Panel *Hepatic Function Panel [facility] Work Phone: Start: 05-14-2012 End: 05-14-2012 Follow Up Appt 6 months Follow Up Appt 6 months [facility] Work Phone: Start: 05-14-2012 End: 12-03-2012 Lipid panel [AGGREGATE] *Lipid Profile [facility] Work Phone: Start: 05-14-2012 End: 05-14-2012 PFM PFM [facility] Work Phone: Start: 10-27-2011 End: 10-27-2011 Follow Up Appt 6 months Follow Up Appt 6 months [facility] Work Phone: Start: 10-27-2011 End: 10-27-2011 Nuclear stress test -exercise Nuclear stress test -exercise [facility] Work Phone: Start: 04-29-2011 End: 04-29-2011 Follow Up Appt 6 months Follow Up Appt 6 months [facility] Work Phone: Start: 2005 BONE DENSITY BONE DENSITY [facility] Start: 2005 PNEUMOCOCCAL: 65+ (1 - PCV) PNEUMOCOCCAL: 65+ (1 - PCV) [facility] Start: 1990 SHINGRIX VACCINE (1 of 2) SHINGRIX VACCINE (1 of 2) [facility] Start: 10-10-1959 Urine microalbumin profile DTAP,TDAP,TD (1 - Tdap) [facility] CBC W Auto Different ial panel - Blood [facility] Comprehensive metabo lic 1999 panel - Serum or Plasma [facility] Hepatic function panel [facility] Lipid 1996 panel - S corina or Plasma [facility] Patient Education [facility] Work Phone: [place] [facility] XR Lumbar spine 2 or 3 Views [facility] Immunizations Immunization Date Immunization Notes Care Provider Fa maurice 08-20-2024 RSV Adult Recombinan t (Arexvy) No Primary Care Physician [facility] 11-17-2023 Seasonal trivalent influenza vaccine, adjuvanted, preservative free No Primary Care Physician [facility] 10-30-2023 Pfizer Covid-19 (Comirnaty) No Primary Care Physician [facility] 12-07-2022 Pfizer Covid-19 (Comirnaty) No Primary Care Physician [facility] 11-15-2022 influenza, injectabl e, quadrivalent, preservative free No Primary Care Physician [facility] 08-23-2022 Covid Moderna Bivale nt Booster No Primary Care Physician [facility] 11-25-2021 Covid Moderna Bivale nt Booster No Primary Care Physician [facility] 06-09-2021 Covid (Moderna) No Primary C are Physician [facility] 12-22-2020 Covid (Moderna) No Primary C are Physician [facility] 11-12-2020 Influenza High-Dose Quadrivalent No Primary Care Physician [facility] 03-31-2020 Covid (Moderna) No Primary C are Physician [facility] 03-03-2020 Covid (Moderna) No Primary C are Physician [facility] 11-01-2019 influenza, injectabl e, quadrivalent, preservative free No Primary Care Physician [facility] 10-22-2018 influenza, high dose seasonal, preservative-free No Primary Care Physician [facility] 10-22-2018 zoster vaccine recombinant No Primary Care Physician [facility] 11-01-2017 influenza, high dose seasonal, preservative-free No Primary Care Physician [facility] 12-14-2015 pneumococcal conjuga te vaccine, 13 valent No Primary Care Physician [facility] 11-02-2015 influenza, high dose seasonal, preservative-free No Primary Care Physician [facility] 10-20-2008 influenza, injectabl e, quadrivalent, preservative free No Primary Care Physician [facility] 12-05-2006 influenza, injectabl e, quadrivalent, preservative free No Primary Care Physician [facility] Payers Date Payer Category Payer Private Health Insurance [id number] 2024 Private Health Insurance [id number] 2024 Self-pay [id number] 2017 Private Health Insurance AETNA A ETNA CHOICE POS II [id number] 2017-Present [phone] [address] [place] [address] POS [id number] 2006 Private Health Insurance [id number] Unknown [id number] Unknown [id number] 62 Unknown [id number] 62 Unknown [id number] 62 Unknown [id number] 62 Unknown [id number] 62 Unknown [id number] 62 Unknown [id number] 62 Unknown [id number] 62 Unknown [id number] 62 Unknown [id number] 62 Social History Date Type Detail Facility Start: 12-18-2020 Tobacco smoking stat us FLIS Unknown if ever smoked [facility] Work Phone: Start: 1940 Sex Assigned At Female [facility] Start: 04-02-2013 End: 05-06-2024 Tobacco smoking status NHIS Never smoked tobacco [facility] Start: 06-03-2022 Alcohol intake Current non-dr client service administrator of alcohol (finding) [facility] Start: 1940 Sex Assigned At Not on file [facility] Start: 05-14-2024 End: 05-27-2024 Sex Female (finding) [facility] Sex Female [facility] Clinical Notes 06-03-2022 to 11-20-2024 Note Date & Type Note Facility 11-20-2024 Progress note [facility] 11-05-2024 Evaluation note Diagnosis Onset Date Resolution Dyspnea on exertion acute Septe mb2024 10:47am Osteoporosis acute November 052024 10:47am Atherosclerotic heart disease of [place] coronary artery without angina pectoris chronic November 05, 2024 10:47am Essential hypertension chronic Se ptember 2024 10:47am Acquired hypothyroidism noneactive S eptember 2024 10:47am Elevated serum creatinine noneactive November 05, 2024 10:47am Chronic left-sided low back pain noneactive November 05, 2024 10:47am Cardiac murmur acute November 202024 10:46am Premature ventricular contraction acute November 20, 2024 10:46am Atherosclerotic heart disease of [place] coronary artery without angina pectoris chronic November 20, 2024 10:46am Essential hypertension chronic Oc tober 2024 10:46am Pure hypercholesterolemia chronic November 20, 2024 10:46am [facility] Work Phone: 1(562) 673-387409-30-2025 Progress [facility] [address] [place] [address] [place] [address] OFFICE VISIT Date of Service: 11/05/24 MR#: [id number] Acct: [id number] Name: MALLORY PEREZ Rep #: [id number] : 1940 Provider: Dr. Lex Malik MD Age/Sex: 84/F [place] [facility] Status: Signed Intake Vital Signs 05/06/24 10:50 [...] room air Intake Visit Reasons: 6 M FU Evaporative Cooler Installer Required: No Is patient in pain?: Yes [...] mg tablet 325 mg PO ONCE PRN 1 11/05/24 History nitroglycerin 0.4 mg sublingual [...] denosumab 60 mg/mL subcutaneous 60 mg subcut [id number] #1 mL 05/23/24 11/05/24 Rx syringe (Prolia) [...] her flu vaccine at a later time. [facility] Medical History Uterine cancer Sciatica Scoliosis Osteoporosis Essential hypertension Pure hypercholesterolemia Hiatal hernia Family history of hypertension Atherosclerotic heart disease of [place] coronary artery without angina pectoris Premature ventricular [...] at home: Yes HPI HPI Details: MALLORY PERZE, is a 84 F who presents to [...] has changed in quality, however. It is inher lower back, but radiates down her legs and up her spine. She reports she will occasionally takealeve which doesn't help much. She rates her pain 5- 6/10currently. She hasn't had any falls or injuries [...] change in bowel habits, constipation, cramping, diarrhea,nausea/dyspepsia orvomiting Genitourinary-Female: No difficulty urinating, burning urination, painful [...] acute distress, well developed, not diaphoretic and notill appearing Nutritional Appearance: well nourished Orientation: alert and oriented x3 Limitations: mental status not altered [facility] Head: normal to inspection, normocephalic and atraumatic [...] able to speak in complete sentences, no audiblewheezes and no cough Auscultation: Bilateral: Clear to [...] left side Essential hypertension I10 Atherosclerosis of [place] coronary artery of [place] heart without angina pectoris I25.10 [place] vs. transplanted heart: [place] heart Acquired hypothyroidism E03.9 Elevated serum creatinine [...] over the last year, will get an XRfor further assessment. Pending results, will make recommendations on pain management options. She was in agreement. (3) Essential hypertension: Status: Chronic Plan: Blood pressure shows fair control. Will continue current management and monitor. Discussed monitoring salt intake. (4) Atherosclerotic heart disease of [place] coronary artery without angina pectoris: Status: Chronic Qualifiers: [place] vs. transplanted heart: [place] heart Qualified Code(s): I25.10 - Atherosclerotic heart disease of [place] coronary artery without angina pectoris Plan: Stable. Patient reports FLYNN, but it is intermittent and manageable. She deniesany chest pain or palpitations. Will continue to follow up on cardiology's findings and recommendations. (5) Acquired hypothyroidism: Plan: Stable. Most recent TSH was in normal range. Discussed the importance of taking on an empty stomachfirst thing in the morning. Will continue current [...] which included preparing to see the patient, [id number] patient care, completing clinical documentation, obtaining and/or [...] in the past year?: No 11/05/24 1407 y > Date _ Sherley Malik MD Cosigner Signature: Date (if applicable) CC: ~ [facility]01-16-2025 Evaluation note* Diagnosis Onset Date Resolution Status Admit Date Premature ventricular contraction ac [place] February 22, 2024 2:47pm Atherosclerotic heart diseas e of [place] coronary artery without angina pectoris chronic February 21 2:47pm Essential hypertension chronic Ja nuary 2024 2:47pm Pure hypercholesterolemia chronic February 22, 2024 2:47pm Dyspnea on exertion acute May 06, 2024 10:45am Atherosclerotic heart diseas e of [place] coronary artery without angina pectoris chronic May 06, 2024 10:45am Essential hypertension chronic Ma rch 2024 10:45am Numbness and tingling noneactive Mar ch 2024 10:45am Acquired hypothyroidism noneactive M arch 2024 10:45am Establishing care with new doctor, encounter for noneactive April 10:45am Osteopenia noneactive May 06 10:45am [facility] Work Phone: 1(846) 194-498504-28-2023 Instructions* Patient Instructions* JEREMY Elizabeth - 06/03/2022 10:29 AM EDT [...] or fungal infections. Be sure to finish entirecourse of prescribed antibiotics to avoid complications. ACTIVITY: [...] Dark urine. Chest pain. documented in this encounter[facility]04-28-2023 History of Present illness Narrative* JEREMY Elizabeth - 06/03/2022 10:21 AM EDT This note was created using [employer]. Subjective Mallory Perez is a 81 year old female. HPI 81-year-old female presents for sore throat and cough. Patient has had a sore throat for the past 3 days. She has also had a dry cough. She states she always has a runny nose and some congestion,nothing new. No new nasal congestion. No headaches. [...] OF 1993 rotablator SALPINGO-OOPHORECTOMY COMPL/PRTL UNI/BI SPX 2012 TONSILLECTOMY PRIMARY/SECONDARY <AGE 12 Tonsillectomy alone TOTAL ABDOMINAL HYSTERECT W/WO RMVL TUBE OVARY 2012 Hysterectomy, JESÚS ALLERGIES Patient has no known allergies. MEDICATIONS KLOR-CON 10 10 mEq tablet vit D3-folic [id number]-B12 2,000-800-0.32 unit-mcg-mg tab Take by mouth. atenolol [...] mouth as needed. (Patient not taking: Reported on06/03/2022) FAMILY HISTORY Problem Relation Age of Onset [...] treatment with fluids, rest and analgesia. -Recommend otbs-iom-aurxhtd throat lozenges, fluids, cough medication as needed [...] ER evaluation. JEREMY Elizabeth [facility] [place] noteNo assessment information availableWDayton Osteopathic [facility] Work Phone: Evaluation note* Diagnosis Sore throat- Primary Acute pharyngitis URI, acute Acute upper respiratory infections of unspecified site documented in this encounter [facility] note* Diagnosis Onset Date Resolution Status Admit Date Dyspnea on exertion acute Septe mber 2024 10:47am Osteoporosis acute November 052024 10:47am Atherosclerotic heart diseas e of [place] coronary artery without angina pectoris chronic Septembe r 2024 10:47am Essential hypertension chronic Se ptember 2024 10:47am Acquired hypothyroidism noneactive S eptember 2024 10:47am Elevated serum creatinine noneactive November 05, 2024 10:47am Chronic left-sided low back pain noneactive November 05, 2024 10:47am [facility] Work Phone: Progress note Author Sherley Malik [facility] Note Date/Time November 05, 2024 12:05pm [facility] [address] [place] [address] [place] [address] OFFICE VISIT Date of Service: 11/05/24 MR#: [id number] Acct: [id number] Name: MALLORY PEREZ Rep #: [id number] : 1940 Provider: Dr. Lex Malik MD Age/Sex: 84/F [place] [facility] [place] Status: Signed Intake Vital Signs 05/06/24 10:50 [...] room air Intake Visit Reasons: 6 M FU Evaporative Cooler Installer Required: No Is patient in pain?: Yes ([facility] Pain scale (1-10): 4 Allergies No Known [...] mg tablet 325 mg PO ONCE PRN 1 11/05/24 History nitroglycerin 0.4 mg sublingual [...] denosumab 60 mg/mL subcutaneous 60 mg subcut [id number] #1 mL 05/23/24 11/05/24 Rx syringe (Prolia) [...] her flu vaccine at a later time. [facility] Medical History Uterine cancer Sciatica Scoliosis Osteoporosis Essential hypertension Pure hypercholesterolemia Hiatal hernia Family history of hypertension Atherosclerotic heart disease of [place] coronary artery without angina pectoris Premature ventricular [...] oriented x3 Limitations: mental status not altered [facility] Head: normal to inspection, normocephalic and atraumatic [...] left side Essential hypertension I10 Atherosclerosis of [place] coronary artery of [place] heart without angina pectoris I25.10 [place] vs. transplanted heart: [place] heart Acquired hypothyroidism E03.9 Elevated serum creatinine [...] salt intake. (4) Atherosclerotic heart disease of [place] coronary artery without angina pectoris: Status: Chronic Qualifiers: [place] vs. transplanted heart: [place] heart Qualified Code(s): I25.10 -Atherosclerotic heart disease of [place] coronary artery without angina pectoris Plan: Stable. [...] which included preparing to see the patient, [id number] patient care, completing clinical documentation, obtaining and/or [...] Cosigner Signature: Date (if applicable) CC: ~ [facility] Work Phone: Progress note Author Jalil Douglas [facility] Note Date/Time November 20, 2024 1 1:30am [facility] [address] [place] [address]. [address] [place] [address] OFFICE VISIT Date of Service: 11/20/24 MR#: [id number] Acct: [id number] Name: MALLORY PEREZ Rep #: [id number] : 1940 Provider: JEREMY Pike Age/Sex: 84/F [place] [facility] [place] Status: Signed HPI HPI History of Present Illness Details: Mallory Perez is an 84-year-old female who presents to office today for follow-up for monitoring her cardiovascular health. She has a history of coronary artery disease status post remote PCI to the LAD, hyperlipidemia and hypertension. She reports she was recently diagnosed with an abdominal aortic aneurysm throughher PCP and reports this planned to be evaluated via ultrasound ordered by PCP. Upon presentation today, patient reports doing well. She reports noticing subtleSOB with activity. She notices SOB with steep [...] 98 Intake Visit Reasons: 9 M FU Evaporative Cooler Installer Required: No Is patient in pain?: No Allergies No Known Allergies Allergy (Verified 11/20/24 11:00) Medications ?Medication ?Instructions ?Recorded ?Confirmed ?Type aspirin 81 mg tablet,delayed 81 mg PO QDAY 04/17/17 History release cholecalciferol (vitamin D3) 50 2,000 unit PO DAILY 11/20/24 History mcg (2,000 unit) capsule acetaminophen 325 mg tablet 325 mg PO ONCE PRN 1 11/20/24 History nitroglycerin 0.4 mg sublingual 0.4 mg sublingual Q5-1 5M PRN chest 02/20/23 11/20/24 Rx tablet pain #25 tabs rosuvastatin 20 mg tablet 20 mg PO DAILY #90 tabs 11/0811/20/24 Rx atenolol 50 mg tablet 50 mg PO QDAY ONCE DAILY #90 tabs 02/28/24 11/20/24 Rx losartan 100 mg tablet 100 mg PO DAILY #90 tabs 06/3011/20/24 Rx hydrochlorothiazide 25 mg tablet 25 mg PO DAILY #90 TA BLETS 06/06/24 11/20/24 Rx levothyroxine 50 mcg tablet 50 mcg PO .COMPLEX 5 11/20/24 History (Synthroid) mecobalamin (vitamin B12) 1,000 1,000 mcg PO QDAY 10/0911/20/24 History mcg chewable tablet (B12 Active) Have you fallen in the past year?: No Nurse's Note: has abdominal aortic aneurysm [facility] Medical History Uterine cancer Sciatica Scoliosis Osteoporosis Essential hypertension Pure hypercholesterolemia Hiatal hernia Family history of hypertension Atherosclerotic heart disease of [place] coronary artery without angina pectoris Premature ventricular [...] Negative for SOB at rest or SOB orthopnea\SOB lying down GI GI: Negative nausea, vomiting, heartburn, bright, red blood in stools or black,tarry stools : Negative for hematuria Neuro Neuro: Negative for dizziness, lightheadedness, near syncope, syncope, frequent falls, headache(s), weakness or blurry vision Endo Endo: Negative for fatigue Cardiology Exam Const Appearance: cooperative, comfortable, no acute distress and well developed; Negative diaphoretic or ill appearing Nutritional Appearance: average body habitus Orientation: alert and oriented x3 Ambulating without assistive device Head Head: normal to inspection, normocephalic and atraumatic Ears: hearing grossly normal bilaterally Nose: external nose normal and Negative epistaxis Face and Sinus: face symmetric Eyes General: appearance normal, both eyes and all related structures Eyelids: eyelids normal Conjunctivae: conjunctivae normal; Negative scleral icterus EOM: EOM intact bilaterally Neck Neck: no JVD Carotids: normal carotid upstroke; Negative bruit Neck Mass: Negative Neck mass Chest Chest inspection: normal respiratory effort; Negative respiratory distress, audible wheezes or tachypneic Auscultation: Bilateral: Clear to Auscultation Cardio Rate: regular rate Rhythm: regular rhythm Heart sounds: S1 normal, S2 normal and murmur; Negative rub or gallop Murmur: Grade 1/6, soft, holosystolic and ROSE loudest primary aortic area Neuro General: patient alert, patient awake, patient oriented x3 and moves all extremities Skin Skin: no rashes or lesions noted Extremities Pulses: Normal: Right Posterior Tibial Pulse, Left Posterior Tibial Pulse, RightRadial Pulse and Left Radial Pulse Lower Extremity Edema: None: Bilateral Psych Psychological: normal affect Supplemental Info Supplemental Information Stress Test 01/06/22 Impression: 1. Rest and stress SPECT Cardiolite nuclear imaging demonstrate relative uniform tracer uptake and myocardial perfusion appearing within normal limits. 2. The gated Cardiolite study reports an LVEF of 83%. Labs: LDL Cholesterol, (0-130) 61 mg/dL HDL Cholesterol, (40-) 65 mg/dL Cholesterol, (<=200) 153 mg/dL Triglycerides, (-199) 114 mg/dL Diagnostics: Stress Test Stress Test Nuclear Medicine Past Visits: Cardiology Visit 11/20/24 Assessment and Plan Assessment and Plan (1) Essential hypertension: Status: Chronic Plan: BP elevated in office today. Patient reports this is controlled in home environment with systolic usually 117-121. Plan: Recommend patient continue antihypertensive agents, atenolol, HCTZ and losartan. Encourage lifestyle risk factor modification. (2) Pure hypercholesterolemia: Status: Chronic Plan: Most recent lipid panel 05/08/2024 demonstrated total cholesterol 153, triglyceride 114, LDL 66, HDL 65. Plan: Patient will continue Rosuvastatin. Encouraged lifestyle and risk factor modification. Will obtain updated lipid levels. (3) Atherosclerotic heart disease of [place] coronary artery without angina pectoris: Status: Chronic Qualifiers: [place] vs. transplanted heart: [place] heart Qualified Code(s): I25.10 -Atherosclerotic heart disease of [place] coronary artery without angina pectoris Plan: Patient has a history of coronary artery disease status post PCI to her LAD in 2004. Patient's most recent stress test 01/06/2022 negative for ischemia. Most recent lipid panel with LDL at goal. Plan: Patient will continue medical management including statin therapy and antiplatelet. Encouraged lifestyle and risk factor modification. Will obtain a nuclear stress test to assess for ischemia. Will obtain ecocardiogram. (4) Premature ventricular contraction: Status: Acute Plan: Patient has a history of PVCs.She noticed palpitations several nights ago; however denies recurrence. Plan: Recommend continuing atenolol. (5) Cardiac murmur: Status: Acute Plan: Murmur present on exam. Will obtain an echocardiogram. Orders: Orders Nuclear Stress Test - Treadmil 11/20/24 I25.10 - Atherosclerotic heart disease of [place] coronary artery without angina pectoris, R06.09 - Other forms of dyspnea Echo Complete 11/20/24 R01.1 - Cardiac murmur, unspecified, R06.09 - Other forms of dyspnea Liver Profile 6 Months I25.10 - Atherosclerotic heart disease of [place] coronary artery without angina pectoris Lipid Profile 6 Months E78.00 - Pure hypercholesterolemia, unspecified Plan 1.Obtain a stress test given hx of CAD 2. Obtain an echo to assess for abnormalities causing murmur. 3. updated lipid panel Patient will follow-up in 9 months or sooner, if needed. Thank you for allowing me to participate in the care of your patient. Please don't hesitate to call if any issues arise. This note was generated using a voice recognition system and there may be incorrect words, spelling, or punctuation that were not noted when reviewing theoffice note prior to saving. Portions of this documentation were copied and pasted from previous office visitnotes to provide a cohesive continuity of the history. The note has been reviewed, edited, and updated, as necessary. Plan Details Follow Up: 9 Months ([employer]HE[employer]) Coding Level of Care Code Off vis,est,level 4 Diagnoses Essential hypertension I10 Pure hypercholesterolemia E78.00 Atherosclerosis of [place] coronary artery of [place] heart without angina pectoris I25.10 [place] vs. transplanted heart: [place] heart Premature ventricular contraction I49.3 Cardiac murmur R01.1 Coding Level of Care Code Off vis,est,level 4 Diagnoses Essential hypertension I10 Pure hypercholesterolemia E78.00 Atherosclerosis of [place] coronary artery of [place] heart without angina pectoris I25.10 [place] vs. transplanted heart: [place] heart Premature ventricular contraction I49.3 Cardiac murmur R01.1 Clinical Quality Measures Falls Risk Screening/Assistive Devices Have you fallen in the past year?: No 11/23/24 1240 <Electronically signed by Jalil Duque r PA> Date _ Jalil Demiter PA 11/25/24 1831<Electronically signed by Teto Sharma MD> Cosigner Signature: Date (if applicable) Teto Sharma MD CC: Dr. Sherley Malik MD ~ [facility] Work Phone: Reason for referral (narrative)No reason for referral information availableWDayton Osteopathic Hospital Work Phone: Summary Purpose Family History [...] Will Yes November 27 8:26am Power of Tag Stringer Yes November 27, 2020 8:26am Advance Directive Response Recorded Date/ Time Living Will Yes November 27 8:26am Do you have a Healthcare Power of Tag Stringer? 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 May 06, 2024 10:45am Reason for Visit Admit Date Premature ventricular contraction Januar 2024 2:47pm Atherosclerotic heart diseas e of [place] coronary artery without angina pectoris February 22, 2024 2:47pm Essential hypertension February 21 2:47pm Pure hypercholesterolemia February 22, 2024 2:47pm Dyspnea on exertion May 06, 2024 10: 45am Atherosclerotic heart diseas e of [place] coronary artery without angina pectoris May 06, 2024 10:45am Essential hypertension May 06, 2024 10:45am Numbness and tingling May 06, 2024 1 0:45am Acquired hypothyroidism May 06, 2024 10:45am Establishing care with new doctor, toan roberts for May 06, 2024 10:45am Osteopenia May 06, 2024 10: 45am Chief Complaint Admit Date 1 Y FU February 22, 2024 2 :47pm 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 May 06, 2024 10:45am follow up May 21, 2024 8:0 7am Chief Complaint Admit Date 6 M FU November 05, 2024 10:47am Reason for Visit Admit Date Dyspnea on exertion November 05, 2024 10:47am Osteoporosis November 05, 2024 10:47am Atherosclerotic heart diseas e of [place] coronary artery without angina pectoris November 05, 2024 10:47am Essential hypertension November 05 10:47am Acquired hypothyroidism November 05, 2024 10:47am Elevated serum creatinine October 10:47am Chronic left-sided low back pain Septemb 2024 10:47am Chief Complaint Admit Date 6 M FU November 05, 2024 10:47am 9 M FU November 20, 2024 1 0:46am AAA December 03, 2024 8 :47am Reason for Visit Admit Date Dyspnea on exertion November 05, 2024 10:47am Osteoporosis November 05, 2024 10:47am Atherosclerotic heart diseas e of [place] coronary artery without angina pectoris November 05, 2024 10:47am Essential hypertension November 05 025 10:47am Acquired hypothyroidism November 05, 2024 10:47am Elevated serum creatinine October 10:47am Chronic left-sided low back pain Septemb er 2024 10:47am Cardiac murmur November 20, 2024 1 0:46am Premature ventricular contraction Octobe r 2024 10:46am Atherosclerotic heart diseas e of [place] coronary artery without angina pectoris November 20, 2024 10:46am Essential hypertension November 20 10:46am Pure hypercholesterolemia November 20, 2024 10:46am Additional Source Comments INFORMATION SOURCE (unrecogn ized section and content) DATE CREATED AUTHOR 08/02/2017 [facility] DATE CREATED AUTHOR AUTHOR'S ORGANIZ ATION 08/02/2017 [facility] DATE CREATED AUTHOR AUTHOR'S ORGANIZ ATION 12/12/2024 [facility] Goals (unrecognized section and content) Goals may [...] or prosecute any alcohol or drug abuse patient.[facility] Reason for Visit (unrecogniz ed section and [...] November 05, 2024 End: November 05, 2024 Team Status: Inactive Member Role/Relationship Status Dates Dr. Sherley Malik MD Primary care physician Active Start: November 07, 2024 End: November 07, 2024 Dr. Sherley Malik MD Attending physician Active Start: November 07, 2024 End: November 07, 2024 Dr. Sherley Malik MD Referring Provider Active Start: November 07, 2024 End: November 07, 2024 Team Status: Inactive Member Role/Relationship Status Dates No Primary Care Physician Referring Provider Active Start: November 20, 2024 End: November 20, 2024 JEREMY Kothari Attending physician Active S tart: November 20, 2024 End: November 20, 2024 Dr. Sherley Malik MD Primary care physician Active Start: November 20, 2024 End: November 20, 2024 Team Status: Active Member Role/Relationship Status Dates Dr. Sherley Malik MD Primary care physician Active Start: December 03, 2024 Dr. Sherley Mlaik MD Attending physician Active Start: December 03, 2024 Dr. Sherley Malik MD Referring Provider Active Start: December 03, 2024 FOR RECORDS PERTAINING TO PATIENTS WHO [...] BE BASED ON THE PRIMARY CLINICAL RECORDS. [employer] provides no warranty or guarantee of the accuracy or completeness of information in this document.
--- NOTE | 2024-12-21 10:15 | STRESSREP_ITS ---
Stress Test Report Exercise myocardial perfusion stress test. 84-year-old lady with a history of dyspnea on exertion. Stress protocol: Resting EKG demonstrates normal sinus rhythm with a rate of 70 bpm resting blood pressure is 122/70 mmHg. The patient exercised according to the regular Herbert protocol for a total duration of 4 minutes attaining a maximum heart rate of 139 bpm which was 102% of maximum predicted heart rate; the maximum workload was 7 metabolic equivalents. At rest there were no ST or T wave changes noted to suggest ischemia and at peak exercise upsloping ST changes only were noted which did not meet the criteria for ischemia. No clinical angina was noted the test was terminated due to the target heart rate being achieved/fatigue. The peak blood pressure was 168/70 mmHg. Rate-pressure product was 18,500. Myocardial perfusion protocol. 11.4 mCi of technetium 99m sestamibi was injected at rest. The patient exercised according to regular Herbert protocol for total duration of 4 minutes and at peak exercise 33.4 mCi of technetium 99m sestamibi was injected stress images were obtained stress and rest images were reconstructed in comparing the short axis vertical long and horizontal long axis. Gated images were also obtained. Perfusion SPECT analysis: Review of the stress images demonstrate normal uptake of tracer noted in all a reas of the myocardium. The resting images similarly demonstrate normal uptake of tracer noted in all areas of the myocardium. No areas of reversibility are noted to suggest ischemia no previous infarct was noted. Gated SPECT analysis: The gated ejection fraction is 85%. Conclusion: Normal exercise myocardial perfusion stress test at a moderate workload.
== END | disposition home or self-care (01) ==
PROVIDERS: PCP Internal Medicine; Referring Provider Student in an Organized Health Care Education/Training Program; Visit Provider Student in an Organized Health Care Education/Training Program
DX: R06.09 Other forms of dyspnea (principal); I25.10 Atherosclerotic heart disease of native coronary artery without angina pectoris
CPT/HCPCS: 78452; 93017; 93306; A9500